=== PATIENT | female | born 1950 | race Caucasian/White ===

== ENCOUNTER 2023-09-06 10:56 | Emergency (ER) | payer SELFPAY ==
[2023-09-06] VITALS (8 sets, daily range): BP systolic 141–179; BP diastolic 70–98; PULSE 65–68; RESP 11–14; TEMP 36.6; O2SAT 89–92
--- NOTE | 2023-09-06 11:01 | CT_ITS ---
WS: [id number] CT HEAD TECHNIQUE: Noncontrast CT of the head obtained from the skullbase to the vertex. CLINICAL INFORMATION: Encephalopathy, altered mental status COMPARISON: None. DLP: 1007.[address] scans at [facility] use at least one of these dose optimization techniques: automated e xposure control; mA and/or kV adjustment per patient size (includes targeted exams where dose is matc hed to clinical indication); or iterative reconstruction. FINDINGS: No evidence of intracranial hemorrhage or mass effect. Ventricular system and basal cisterns are crawford nt. Mild small vessel changes with moderate parenchymal volume loss. No extra-axial fluid collections . No evidence of mass or mass effect. Intracranial vascular calcification. Paranasal sinuses partially visualized well aerated. Mucosal thickening RIGHT mastoid tip. IMPRESSION: 1. No evidence of intracranial hemorrhage or mass effect. 2. Mild small vessel changes with moderate parenchymal volume loss. 3. Intracranial vascular calcification. 4. No acute intracranial findings.
--- NOTE | 2023-09-06 11:01 | XR_ITS ---
WS: [id number] Examination: XR chest 1V [id number] Reason for Exam: shortness of breath Date: September 06, 2023 Comparison: None. Findings: The heart is not grossly enlarged on this AP film. The mediastinum is not widened. The aorta is calci fied with prominent atherosclerotic changes The lung markings are diffusely increased. While these may be chronic in nature without old films titi ilable comparison edema or inflammatory change cannot be excluded. There are no large effusions. Impression: Diffusely increased lung markings as above. If old films are available comparison this would be of be nefit.
--- NOTE | 2023-09-06 11:08 | ED_ITS ---
HPI - Altered Mental Status 2 General: Chief Complaint: Altered Mental Status Stated Complaint: ams Time Seen by Provider: 09/06/23 10:57 History of Present Illness: 73-year-old female with a history of dem entia who presents the emergency room by ambulance with confusion. Son states that he picked her up from her home [place] and she was like this. They have been there for 3 to 4 days and seems it she may have gotten worse. She does not seem focal but she is mostly nonverbal and does not want to follow commands. She is alert and looks around the room but does not speak. Review of Systems 2 General: Reports: ROS unobtainable due to mental status Physical Exam 2 Narrative: General: Alert, no acute distress. Skin: Warm, dry. Head: Normocephalic, atraumatic. Neck: Supple, trachea midline. Eye: Extraocular movements are intact. Ears, nose, mouth and throat: Very dry oral mucosa Cardiovascular: Regular, Normal peripheral perfusion. Respiratory: Lungs are clear to auscultation, respirations are non-labored, breath sounds are equal, Symmetrical chest wall expansion. Gastrointestinal: Soft, Nontender, Non distended, Normal bowel sounds. Musculoskeletal: Normal ROM, no deformity. Neurological: Alert, but not oriented, no focal neurological deficit observed. Psychiatric: Unable to assess, patient is nonverbal Course 2 Vital Signs: Vital signs: Vital Signs Temperature 97.8 F 09/06/23 11:07 Pulse Rate 66 09/06/23 11:20 Respiratory Rate 11 L 09/06/23 11:20 Blood Pressure 161/78 09/06/23 12:00 Pulse Oximetry 92 09/06/23 11:20 Oxygen Delivery Me thod Room Air 09/06/23 11:07 MDM - Altered Mental Status Medical Decision Making Medical decision making: Differential diagnosis including but not limited to and based on the above HPI, review of systems and physical exam: In this patient with altered mental status: Stroke. Hypoglycemia. Metabolic encephalopathy. Infections such as pneumonia, urinary tract infection, Covid-19, Influenza. Electrolyte abnormalities such as hypernatremia. Renal failure / uremia. Hepatic encephalopathy. Hypoxemia. Hypercapnic respiratory failure. Psychosis. Drug or alcohol intoxication. Medication overdose. Orders placed to evaluate differential diagnosis based on the above differential, HPI and physical exam Lab Review: Laboratory results were reviewed and interpreted by myself the emergency room physician. Lab work is fairly unremarkable. No leukocytosis. White count is 8. Hemoglobin is 12. BUN and creatinine are 13 and 0.8. Patient does have significant urinary tract infection which is likely the cause of her symptoms. Also her urine is concentrated which further is the point that she is likely dehydrated. CT head: No acute intracranial process. no intracranial hemorrhage, no evidence of infarct. no evidence of acute fracture.This was reviewed and interpreted by myself the ER physician. EKG: Time 11:20 AM rate 56. Sinus bradycardia. No ST-T changes, no ectopy, normal MI & QRS intervals, This was reviewed and interpreted by myself the ER physician at 11:26 AM. Chest x-ray: No acute process. No infiltrate. No pneumothorax. No cardiomegaly. This was reviewed and interpreted by myself the ER physician. Reexamination: Patient remained stable. No focal motor deficits. She still is a bit confused. Giving some fluids and IV antibiotics. I think she is stable to go home. At discharge she looks at me and says thank you. She seems somewhat improved. Medical Records Patient has no previous records from this facility. Lab Data 09/06/23 10:39 09/06/23 10:39 Laboratory Results WBC 8.22 10^3/uL (3.29-11.43) 09/06/23 10:39 RBC 4.71 10^6/uL (3.85-5.65) 09/06/23 10:39 Hgb 12.50 g/dL (11.27-16.99) 09/06/23 10:39 Hct 38.9 % (36-47) 09/06/23 10:39 MCV 82.6 fl (85-98) L 09/06/23 10:39 MCH 26.5 pg (27-33) L 09/06/23 10:39 MCHC 32.1 g/dL (30-55) 09/06/23 10:39 RDW 15.4 % (12.1-15.1) H 09/06/23 10:39 Plt Count 122 10^3/cmm (157-399) L 09/06/23 10:39 MPV 11.4 fL (7.4-10.4) H 09/06/23 10:39 Neut % (Auto) 62.5 % 09/06/23 10:39 Lymph % (Auto) 18.2 % 09/06/23 10:39 Bacon % (Auto) 10.6 % 09/06/23 10:39 Eos % (Auto) 7.7 % 09/06/23 10:39 Baso % (Auto) 0.6 % 09/06/23 10:39 Neut # (Auto) 5.14 10^3/uL (1.8-7.7) 09/06/23 10:39 Lymph # (Auto) 1.5 10^3/uL (0.8-4.8) 09/06/23 10:39 Bacon # (Auto) 0.9 10^3/uL (0.2-0.9) 09/06/23 10:39 Eos # (Auto) 0.6 10^3/uL (0.0-0.8) 09/06/23 10:39 Baso # (Auto) 0.1 10^3/uL (0.0-0.1) 09/06/23 10:39 Nucleated RBC % (auto) 0 % 09/06/23 10:39 Nucleated RBCs # 0.0 /100WBC 09/06/23 10:39 Sodium 143 mmol/L (136-145) 09/06/23 10:39 Potassium 3.1 mmol/L (3.5-5.1) L 09/06/23 10:39 Chloride 102 mmol/L (98-107) 09/06/23 10:39 Carbon Dioxide 28 mmol/L (22-29) 09/06/23 10:39 Anion Gap 16.1 (5-19) 09/06/23 10:39 BUN 13 mg/dL (8-23) 09/06/23 10:39 Creatinine 0.8 mg/dL (0.5-0.9) 09/06/23 10:39 GFR Calculation Not Reportable 09/06/23 10:39 Glucose 110 mg/dL (65-115) 09/06/23 10:39 Calculated Osmolality 297 mOsm/kg (285-295) H 09/06/23 10:39 Lactic Acid 1.9 mmol/L (0.5-2.2) 09/06/23 10:39 Calcium 9.4 mg/dL (8.5-10.5) 09/06/23 10:39 Total Bilirubin 1.7 mg/dL (0.15-1.2) H 09/06/23 10:39 AST 28 U/L (0-32) 09/06/23 10:39 ALT 16 U/L (0-33) 09/06/23 10:39 Alkaline Phosphatase 80 U/L (35-105) 09/06/23 10:39 C-Reactive Protein 20.7 mg/L (0.0-4.9) H 09/06/23 10:39 Total Protein 7.0 g/dL (6.6-8.7) 09/06/23 10:39 Albumin 3.7 g/dL (3.5-5.2) 09/06/23 10:39 Globulin 3.3 g/dL (1.3-4.6) 09/06/23 10:39 Urine Color Yellow (Yellow) 09/06/23 12:00 Urine Appearance Cloudy (CLEAR) A 09/06/23 12:00 Urine pH 6 (5-7) 09/06/23 12:00 Ur Specific [place] 1.025 (1.005-1.030) 09/06/23 12:00 Urine Protein 1+ (Negative) H 09/06/23 12:00 Urine Glucose (UA) Norm (Normal) 09/06/23 12:00 Urine Ketones 1+ (Negative) H 09/06/23 12:00 Urine Blood 2+ (Negative) H 09/06/23 12:00 Urine Nitrate Positive (Negative) H 09/06/23 12:00 Urine Bilirubin 1+ (Negative) H 09/06/23 12:00 Urine Urobilinogen 4 mg/dL (Negative) H 09/06/23 12:00 Ur Leukocyte Esterase 2+ (Negative) H 09/06/23 12:00 Urine RBC 5-10 /hpf (0-2) H 09/06/23 12:00 Urine WBC 40-55 /hpf (0-5) H 09/06/23 12:00 Ur Squamous Epith Cells 0-4 /hpf (0-5) H 09/06/23 12:00 Ur Transition Epith Cell 15-25 /hpf 09/06/23 12:00 Amorphous Sediment Not Reportable 09/06/23 12:00 Urine Bacteria 1+ /hpf (NONE) H 09/06/23 12:00 Influenza Type A Ag negative (Negative) 09/06/23 11:19 Influenza Type B Ag negative (Negative) 09/06/23 11:19 All radiology interpretation(s) finalized by discharge Other Data Assessment and plan: Urinary tract infection Dehydration - IV Rocephin and 1 L normal saline bolus were given in the emergency room. - Discharged home - Discussed findings and plan with patient. Answered any questions. - All laboratory values were reviewed and interpreted personally by myself, the ER physician - All imaging was reviewed and interpreted personally by myself, the ER physician. - Evaluation and treatment of this problem were appropriate in the emergency setting Discharge Plan Discharge Patient Disposition: Home Clinical Impression: Urinary tract infection, Delirium due to general medical condition, Dementia, Dehydration Condition: Stable Prescriptions: New cefdinir 300 mg capsule 300 mg PO BID 7 Days Qty: 14 0RF No Action magnesium 500 mg Tablet 500 mg PO DAILY trazodone 50 mg Tablet 50 mg PO BEDTIME aspirin 325 mg Tablet 325 mg PO DAILY isosorbide mononitrate 30 mg Tablet Extended Release 24 Hr 15 mg PO QAM Prilosec 40 mg Capsule,Delayed Release(Dr/Ec) 40 mg PO QAM lisinopril 10 mg Tablet 10 mg PO BID ibuprofen 200 mg Tablet 200 - 800 mg PO Q6H PRN (Reason: Pain) mirtazapine 15 mg Tablet 15 mg PO BEDTIME albuterol sulfate 90 mcg/actuation Hfa Aerosol Inhaler 2 puff INHALATION QID PRN (Reason: Shortness Of Breath) Zoloft 50 mg Tablet 50 mg PO QAM potassium gluconate 595 mg (99 mg) Tablet 595 mg PO DAILY Vitamin D3 125 mcg (5,000 unit) Tablet 10,000 unit PO DAILY Discharge Orders: Discharge ED (Routine); Ordered 09/06/23 Ordered By: Amara Sweet Discharge Diet: Usual diet Discharge Activity: Increase activity as tolerated Patient Instructions: Dehydration (ED), Dementia (ED), Urinary Tract Infection in Older Adults (ED) Activity Restrictions/Additional Instructions: Complete all antibiotics as instructed. You have been screened and evaluated and felt safe for discharge. Health conditions do change or evolve sometimes and as such it is important that you follow up with your Primary Doctor to be re checked, 3-5 days is a general good time frame for follow up. 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
[2023-09-06 11:09] LABS: Basophils # 0.1 10^3/uL (0.0-0.1); Basophils % 0.6 %; Eosinophils # 0.6 10^3/uL (0.0-0.8); Eosinophils % 7.7 %; Hematocrit 38.9 % (36-47); Lymphocytes # 1.5 10^3/uL (0.8-4.8); Lymphocytes % 18.2 %; Mean Corpuscular HGB Conc 32.1 g/dL (30-55); Mean Corpuscular Hemoglobin 26.5 pg (27-33); Mean Corpuscular Volume 82.6 fl (85-98); Mean Platelet Volume 11.4 fL (7.4-10.4); Monocytes # 0.9 10^3/uL (0.2-0.9); Monocytes % 10.6 %; Neutrophils # 5.14 10^3/uL (1.8-7.7); Neutrophils % 62.5 %; Nucleated Red Blood Cells % 0 %; Platelet Count 122 10^3/cmm (157-399); Red Blood Count 4.71 10^6/uL (3.85-5.65); Red Cell Distribution Width 15.4 % (12.1-15.1); White Blood Count 8.22 10^3/uL (3.29-11.43)
--- NOTE | 2023-09-06 11:24 | PC.PHAR ---
pt unable to verify medications due to ams-pts son brought in med bottles that are entered-pts son states the pt hasnt taken since last saturday-pts son states maybe not even taken before then-notes are made in the pharmacy comments with dates that was on bottles-pt had a doxycycline hyclate 100mg bid x7 days bottle shows filled 08/06/23 pts son states finished states it was for the pts cellulitis-
[2023-09-06 11:25] LABS: Lactic Sepsis W/Reflex 1.9 mmol/L (0.5-2.2)
[2023-09-06 11:30] LABS: Alanine Aminotransferase 16 U/L (0-33); Albumin Level 3.7 g/dL (3.5-5.2); Alkaline Phosphatase 80 U/L (35-105); Anion Gap 16.1 (5-19); Aspartate Amino Transferase 28 U/L (0-32); Blood Urea Nitrogen 13 mg/dL (8-23); C Reactive Protein 20.7 mg/L (0.0-4.9); Calcium 9.4 mg/dL (8.5-10.5); Carbon Dioxide 28 mmol/L (22-29); Chloride 102 mmol/L (98-107); Globulin 3.3 g/dL (1.3-4.6); Glucose 110 mg/dL (65-115); Osmolality Calculated 297 mOsm/kg (285-295); Potassium 3.1 mmol/L (3.5-5.1); Sodium 143 mmol/L (136-145); Total Bilirubin 1.7 mg/dL (0.15-1.2)
[2023-09-06 11:40] LABS: Influenza A by IFA negative (Negative); Influenza B by IFA negative (Negative)
[2023-09-06 13:06] LABS: Bilirubin Urine 1+ (Negative); Blood Urine 2+ (Negative); Glucose Urine UA Norm (Normal); Ketones Urine 1+ (Negative); Leukocyte Esterase Urine 2+ (Negative); Nitrate Urine Positive (Negative); Protein Urine 1+ (Negative); Specific Gravity, Urine 1.025 (1.005-1.030); Urine Appearance Cloudy (CLEAR); Urine Color Yellow (Yellow); Urobilinogen Urine 4 mg/dL (Negative); pH Urine 6 (5-7)
[2023-09-06 13:09] LABS: Add Urine Culture? Yes; Bacteria Urine 1+ /hpf; Squamous Epithelial Cell Urine 0-4 /hpf (0-5); Transitional Epi Cells Urine 15-25 /hpf; WBC Urine 40-55 /hpf (0-5)
[2023-09-06] MEDS: sodium chloride 0.9% 1,000 ML 999 ML IV (13:27)
[2023-09-06] MEDS: cefTRIAXone 1,000 MG in sodium chloride 0.9% (plus) 50 ML 100 MG IV (13:27)
== END 2023-09-06 14:10 | disposition home or self-care (01) ==
PROVIDERS: Emergency Provider Emergency Medicine
DX: F03.90 Unspecified dementia, unspecified severity, without behavioral disturbance, psychotic disturbance, mood disturbance, and anxiety (principal); F05 Delirium due to known physiological condition; E86.0 Dehydration; N39.0 Urinary tract infection, site not specified; Z79.82 Long term (current) use of aspirin
CPT/HCPCS: 70450; 71045; 80053; 81001; 83605; 85025; 86140; 87040; 87077; 87086; 87186; 87804; 99284; J0696; J7030

== ENCOUNTER 2023-10-16 13:33 | Emergency (ER) | payer MEDICARE, MEDICAID, SELFPAY ==
[2023-10-16 13:37] VITALS: BP 160/89; PULSE 74; RESP 18; TEMP 36.9; O2SAT 96
--- NOTE | 2023-10-16 14:00 | XR_ITS ---
WS: [id number] Portable AP upright chest, 10/16/2023 Clinical Data: dyspnea/cough Comparison: Portable chest, 09/06/2023 Findings: No nodules, masses or effusions are seen. The heart is slightly enlarged. The pulmonary vas cularity is not increased. No pneumonia or pneumothorax is seen. The aortic arch and descending thora cic aorta show calcification and tortuosity. There are small metal tubes overlying the right and left axilla which may be on the patient's clothing. XR/XR chest 1V portable [id number] Impression: Atherosclerosis.
--- NOTE | 2023-10-16 14:01 | ED_ITS ---
HPI - Female Genitourinary 2 General: Chief complaint: Urogenital-Female Stated complaint: frequent urination Time Seen by Provider: 10/16/23 13:59 Source: patient Mode of arrival: ambulatory History of Present Illness: 73-year-old female presents to the emerg ency room with complaint of UTI. In early September she was seen for a UTI and culture grew out Proteus and Enterococcus faecalis both susceptible to quinolones. She feels like the antibiotic she was treated with did not completely resolve or it has recurred. Son is with her as her main caregiver says she has seemed a little bit off lately not feeling as well at times is even hallucinating felt hot to the touch subjectively reporting a fever. She denies back pain dysuria urgency or frequency or vomiting. MD elicited complaint: dysuria Onset (ago): day(s) Quality of pain: cramping Relieving factors: none Associated symptoms: Reports fevers/chills; Deny abdominal pain, short of breath, headache(s), nausea, rash, seizures, syncope or weakness Treatment prior to arrival: none Review of Systems 2 Const: Denies: fever(s) or chills Card: Denies: chest pain or syncope Resp: Denies: dyspnea GI: Denies: abdominal pain or nausea : Denies: dysuria, urinary frequency or urinary urgency Musc: Denies: neck pain or back pain Skin/Breast: Denies: rash Neuro: Denies: headache(s) Physical Exam 2 Const: COMMON NORMALS: no acute distress GENERAL APPEARANCE: cooperative and comfortable ORIENTATION/CONSCIOUSNESS: Yes awake, Yes oriented to person, Yes oriented to place and Yes oriented to time HENMT: COMMON NORMALS: normocephalic, atraumatic and hearing grossly normal bilaterally HEAD & SCALP: normocephalic and atraumatic Resp: COMMON NORMALS: normal respiratory effort, No retractions, No use of accessory muscles and clear to auscultation bilaterally AUSCULTATION: clear to auscultation bilaterally Cardio: COMMON NORMALS: regular rate, regular rhythm and No murmurs present (Cardio) RATE: regular rate RHYTHM: regular rhythm GI: COMMON NORMALS: Soft to palpation and No hepatosplenomegaly present A USCULTATION: Yes normoactive bowel sounds PALPATION: Yes Soft to palpation, No Tenderness to palpation present (GI), No Guarding due to palpation present (GI) and Yes No hepatosplenomegaly present Extremity: COMMON NORMALS: normal to inspection, capillary refill normal, no clubbing, cyanosis or edema, no calf tenderness and no pedal edema Neuro: SENSORIUM/ORIENTATION: Yes oriented to person, Yes oriented to place and Yes oriented to time Skin: COMMON NORMALS: no rashes or lesions noted GENERAL SKIN EXAM: no rashes or lesions noted Course 2 Vital Signs: Vital signs: Vital Signs Temperature 98.4 F 10/16/23 13:37 Pulse Rate 73 10/16/23 17:03 Respiratory Rate 18 10/16/23 13:37 Blood Pressure 198/100 10/16/23 17:03 Pulse Oximetry 96 10/16/23 17:03 Oxygen Delivery Me thod Room Air 10/16/23 13:37 MDM - Female Medical Decision Making Lab work shows UTI. Secondary findings of thrombocytopenia which is mild as well as hypokalemia. Patient given potassium supplement also was given fluids discharged home on oral antibiotics follow-up with primary care to recheck potassium and platelets within the next week recheck if not improving. Patient does have some baseline dementia has been exacerbated with suspect by the UTI. She is actually doing fairly well at this time. Recheck if has any worsening or changes symptoms. Medical Records I reviewed the patient's medical records. Lab Data I reviewed the patient's lab results. 10/16/23 14:32 10/16/23 14:32 Radiology Impressions Chest X-Ray 10/16/23 14:00 Impression: Atherosclerosis. Laboratory Results WBC 5.37 10^3/uL (3.29-11.43) 10/16/23 14:32 RBC 4.50 10^6/uL (3.85-5.65) 10/16/23 14:32 Hgb 12.00 g/dL (11.27-16.99) 10/16/23 14:32 Hct 36.7 % (36-47) 10/16/23 14:32 MCV 81.6 fl (85-98) L 10/16/23 14:32 MCH 26.7 pg (27-33) L 10/16/23 14:32 MCHC 32.7 g/dL (30-55) 10/16/23 14:32 RDW 17.3 % (12.1-15.1) H 10/16/23 14:32 Plt Count 90 10^3/cmm (157-399) L 10/16/23 14:32 MPV 10.7 fL (7.4-10.4) H 10/16/23 14:32 Neut % (Auto) 57.3 % 10/16/23 14:32 Lymph % (Auto) 26.3 % 10/16/23 14:32 [place]ukes % (Auto) 8.9 % 10/16/23 14:32 Eos % (Auto) 6.0 % 10/16/23 14:32 Baso % (Auto) 0.9 % 10/16/23 14:32 Neut # (Auto) 3.08 10^3/uL (1.8-7.7) 10/16/23 14:32 Lymph # (Auto) 1.4 10^3/uL (0.8-4.8) 10/16/23 14:32 [place]ukes # (Auto) 0.5 10^3/uL (0.2-0.9) 10/16/23 14:32 Eos # (Auto) 0.3 10^3/uL (0.0-0.8) 10/16/23 14:32 Baso # (Auto) 0.1 10^3/uL (0.0-0.1) 10/16/23 14:32 Nucleated RBC % (auto) 0 % 10/16/23 14:32 Nucleated RBCs # 0.0 /100WBC 10/16/23 14:32 Sodium 142 mmol/L (136-145) 10/16/23 14:32 Potassium 2.9 mmol/L (3.5-5.1) L 10/16/23 14:32 Chloride 104 mmol/L (98-107) 10/16/23 14:32 Carbon Dioxide 29 mmol/L (22-29) 10/16/23 14:32 Anion Gap 11.9 (5-19) 10/16/23 14:32 BUN 7 mg/dL (8-23) L 10/16/23 14:32 Creatinine 0.6 mg/dL (0.5-0.9) 10/16/23 14:32 GFR Calculation Not Reportable 10/16/23 14:32 Glucose 95 mg/dL (65-115) 10/16/23 14:32 Calculated Osmolality 292 mOsm/kg (285-295) 10/16/23 14:32 Calcium 8.9 mg/dL (8.5-10.5) 10/16/23 14:32 Total Bilirubin 1.3 mg/dL (0.15-1.2) H 10/16/23 14:32 AST 24 U/L (0-32) 10/16/23 14:32 ALT 10 U/L (0-33) 10/16/23 14:32 Alkaline Phosphatase 87 U/L (35-105) 10/16/23 14:32 Total Protein 6.0 g/dL (6.6-8.7) L 10/16/23 14:32 Albumin 3.2 g/dL (3.5-5.2) L 10/16/23 14:32 Globulin 2.8 g/dL (1.3-4.6) 10/16/23 14:32 Urine Color Yellow (Yellow) 10/16/23 14:17 Urine Appearance Hazy (CLEAR) A 10/16/23 14:17 Urine pH 7 (5-7) 10/16/23 14:17 Ur Specific [place] 1.010 (1.005-1.030) 10/16/23 14:17 Urine Protein Neg (Negative) 10/16/23 14:17 Urine Glucose (UA) Norm (Normal) 10/16/23 14:17 Urine Ketones Negative (Negative) 10/16/23 14:17 Urine Blood Neg (Negative) 10/16/23 14:17 Urine Nitrate Negative (Negative) 10/16/23 14:17 Urine Bilirubin 1+ (Negative) H 10/16/23 14:17 Urine Urobilinogen 4 mg/dL (Negative) H 10/16/23 14:17 Ur Leukocyte Esterase 1+ (Negative) H 10/16/23 14:17 Urine RBC None /hpf (0-2) 10/16/23 14:17 Urine WBC 5-10 /hpf (0-5) H 10/16/23 14:17 Ur Squamous Epith Cells 5-10 /hpf (0-5) H 10/16/23 14:17 Amorphous Sediment Not Reportable 10/16/23 14:17 Urine Bacteria 1+ /hpf (NONE) H 10/16/23 14:17 All radiology interpretation(s) finalized by discharge Discharge Plan Discharge Patient Disposition: Home Clinical Impression: Urinary tract infection, Hypokalemia, Thrombocytopenia Condition: Stable Prescriptions: New cefdinir 300 mg capsule 300 mg PO BID Qty: 14 0RF Changed potassium gluconate 595 mg (99 mg) Tablet 595 mg PO BID Qty: 60 0RF No Action trazodone 50 mg Tablet 50 mg PO BEDTIME aspirin 325 mg Tablet 325 mg PO DAILY isosorbide mononitrate 30 mg Tablet Extended Release 24 Hr 15 mg PO QAM omeprazole [Prilosec] 40 mg Capsule,Delayed Release(Dr/Ec) 40 mg PO QAM lisinopril 10 mg Tablet 10 mg PO BID ibuprofen 200 mg Tablet 200 - 800 mg PO Q6H PRN (Reason: Pain) mirtazapine 15 mg Tablet 15 mg PO BEDTIME albuterol sulfate 90 mcg/actuation Hfa Aerosol Inhaler 2 puff INHALATION QID PRN (Reason: Shortness Of Breath) sertraline [Zoloft] 50 mg Tablet 50 mg PO QAM cholecalciferol (vitamin D3) [Vitamin D3] 125 mcg (5,000 unit) Tablet 10,000 unit PO DAILY Discharge Orders: Discharge ED (Routine); Ordered 10/16/23 Ordered By: Benigno Bolden Discharge Diet: Usual diet Discharge Activity: Increase activity as tolerated Patient Instructions: Opioid Safety, Pain Management Activity Restrictions/Additional Instructions: Thank you for choosing [facility] for your healthcare needs today. Please realize this is an emergency room and that we are providing you with a medical screening exam and this may not be complete and all inclusive of all the testing and or work up that you may need to determine your ailment or severity of your illness. It is very important that you follow up as instructed or that you return to the Emergency Department should you have concerns or if your condition changes or worsens in any way. You were seen today with complaints of possible bladder infection as well as slight confusion. Recommend oral antibiotics twice daily for 7 days. You also had low potassium recommend you increase your potassium to 1 dose twice a day. Finally platelets were low. 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
[2023-10-16 14:33] VITALS: PULSE 71; O2SAT 95
[2023-10-16 14:43] LABS: Basophils # 0.1 10^3/uL (0.0-0.1); Basophils % 0.9 %; Eosinophils # 0.3 10^3/uL (0.0-0.8); Hematocrit 36.7 % (36-47); Lymphocytes # 1.4 10^3/uL (0.8-4.8); Lymphocytes % 26.3 %; Mean Corpuscular HGB Conc 32.7 g/dL (30-55); Mean Corpuscular Hemoglobin 26.7 pg (27-33); Mean Corpuscular Volume 81.6 fl (85-98); Mean Platelet Volume 10.7 fL (7.4-10.4); Monocytes # 0.5 10^3/uL (0.2-0.9); Monocytes % 8.9 %; Neutrophils # 3.08 10^3/uL (1.8-7.7); Neutrophils % 57.3 %; Nucleated Red Blood Cells % 0 %; Platelet Count 90 10^3/cmm (157-399); Red Cell Distribution Width 17.3 % (12.1-15.1); White Blood Count 5.37 10^3/uL (3.29-11.43)
[2023-10-16 14:45] LABS: Add Urine Microscopic? YES; Bilirubin Urine 1+ (Negative); Blood Urine Neg (Negative); Glucose Urine UA Norm (Normal); Ketones Urine Negative (Negative); Leukocyte Esterase Urine 1+ (Negative); Nitrate Urine Negative (Negative); Protein Urine Neg (Negative); Urine Appearance Hazy (CLEAR); Urine Color Yellow (Yellow); Urobilinogen Urine 4 mg/dL (Negative); pH Urine 7 (5-7)
[2023-10-16 14:46] LABS: Bacteria Urine 1+ /hpf
[2023-10-16 14:47] LABS: Add Urine Culture? No
--- NOTE | 2023-10-16 14:57 | PC.PHAR ---
Addendum entered by Litzy Lyons 10/16/23 15:00: I DID NOT REMOVE ALL PTS' MEDICATIONS FROM HER CHART, SO MEDICATIONS PREVIOUSLY TAKEN, CAN BE VIEWED. Original Note: SON STATES PT ONLY TAKES IBUPROFEN 200MG AND ALL OTHER MEDICATIONS HAVE BEEN STOPPED.
[2023-10-16 15:01] LABS: Alanine Aminotransferase 10 U/L (0-33); Albumin Level 3.2 g/dL (3.5-5.2); Alkaline Phosphatase 87 U/L (35-105); Anion Gap 11.9 (5-19); Aspartate Amino Transferase 24 U/L (0-32); Blood Urea Nitrogen 7 mg/dL (8-23); Calcium 8.9 mg/dL (8.5-10.5); Carbon Dioxide 29 mmol/L (22-29); Chloride 104 mmol/L (98-107); Globulin 2.8 g/dL (1.3-4.6); Glucose 95 mg/dL (65-115); Osmolality Calculated 292 mOsm/kg (285-295); Sodium 142 mmol/L (136-145); Total Bilirubin 1.3 mg/dL (0.15-1.2)
[2023-10-16 15:03] LABS: Potassium 2.9 mmol/L (3.5-5.1)
[2023-10-16] MEDS: sodium chloride 0.9% 1,000 ML 999 ML IV (15:04)
[2023-10-16 15:05] VITALS: BP 186/87; PULSE 72; O2SAT 96
[2023-10-16] MEDS: potassium chloride oral liq 20 mEq/15 mL UDC 40 MEQ PO (15:23)
[2023-10-16 15:44] VITALS: PULSE 73; O2SAT 96
[2023-10-16 17:03] VITALS: BP 198/100; PULSE 73; O2SAT 96
== END 2023-10-16 17:06 | disposition home or self-care (01) ==
PROVIDERS: Emergency Provider Family Medicine
DX: N39.0 Urinary tract infection, site not specified (principal); E87.6 Hypokalemia; D69.6 Thrombocytopenia, unspecified; Z79.82 Long term (current) use of aspirin
CPT/HCPCS: 36415; 71045; 80053; 81001; 85025; 99284; J7030

== ENCOUNTER 2023-10-25 19:28 | Observation (INO) | payer MEDICARE, MEDICAID, SELFPAY ==
[2023-10-25 19:29] VITALS: BP 191/115; PULSE 81; RESP 16; TEMP 36.5; O2SAT 92
[2023-10-25 20:26] LABS: Basophils # 0.1 10^3/uL (0.0-0.1); Eosinophils # 0.3 10^3/uL (0.0-0.8); Eosinophils % 2.9 %; Hematocrit 45.4 % (36-47); Lymphocytes # 1.8 10^3/uL (0.8-4.8); Lymphocytes % 20.7 %; Mean Corpuscular HGB Conc 32.8 g/dL (30-55); Mean Corpuscular Hemoglobin 26.7 pg (27-33); Mean Corpuscular Volume 81.4 fl (85-98); Mean Platelet Volume 10.5 fL (7.4-10.4); Monocytes # 0.7 10^3/uL (0.2-0.9); Monocytes % 8.1 %; Neutrophils # 5.91 10^3/uL (1.8-7.7); Nucleated Red Blood Cells % 0 %; Platelet Count 142 10^3/cmm (157-399); Red Blood Count 5.58 10^6/uL (3.85-5.65); White Blood Count 8.84 10^3/uL (3.29-11.43)
[2023-10-25 20:43] LABS: Blood Urea Nitrogen 8 mg/dL (8-23); Calcium 10.9 mg/dL (8.5-10.5); Carbon Dioxide 32 mmol/L (22-29); Chloride 98 mmol/L (98-107); Glucose 117 mg/dL (65-115); Osmolality Calculated 287 mOsm/kg (285-295); Sodium 139 mmol/L (136-145)
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
--- NOTE | 2023-10-25 21:39 | ECG_ITS ---
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 Measurements Intervals [place] Rate: 82 P: 0 LA: 0 QRS: 58 QRSD: 84 T: 86 QT: 392 QTc: 459 Interpretive Statements Sinus rhythm with a frequent supraventricular ectopics MODERATE ST DEPRESSION [0.05+ mV ST DEPRESSION] No previous ECG available for comparison Electronically Signed On 10-26-2023 20:19:32 CDT by Laura Mcgovern M.D. [id number]
--- NOTE | 2023-10-25 21:39 | XRR_ITS ---
PROCEDURE INFORMATION: Exam: XR Chest Exam date and time: 10/25/2023 9:46 PM Age: 73 years old Clinical indication: Shortness of breath; Additional info: Altered mental status TECHNIQUE: Imaging protocol: Radiologic exam of the chest. Views: 1 view. COMPARISON: CR XR chest 1V portable [id number] 10/16/2023 2:24 PM FINDINGS: Lungs: Calcified granulomata are stable in the left lung base. No pulmonary consolidation. Stable moderate interstitial prominence. Pleural spaces: No pleural effusion. Heart/Mediastinum: Heart size is within normal limits. Vasculature: Atherosclerotic calcifications of the aorta are noted. Bones/joints: No acute osseous abnormalities are seen. Soft tissues: Curvilinear opacity overlying the right upper lung zone is most consistent with a skin fold. Lung markings are seen peripheral to this line which extends into the soft tissues. XR/XR chest 1V portable [id number] IMPRESSION: No acute cardiopulmonary disease.
[2023-10-25 22:21] LABS: Alanine Aminotransferase 9 U/L (0-33); Alkaline Phosphatase 108 U/L (35-105); Aspartate Amino Transferase 23 U/L (0-32); Globulin 3.4 g/dL (1.3-4.6); Magnesium 1.3 mg/dL (1.7-2.3); Total Bilirubin 2.1 mg/dL (0.15-1.2); Total Protein 7.4 g/dL (6.6-8.7)
[2023-10-25 22:22] LABS: Acetaminophen < 5.0 ug/mL (10-30); Alcohol Level < 10 mg/dL (0-10); Salicylate < 0.3 mg/dL (3-10)
[2023-10-25 22:49] LABS: Influenza A by IFA negative (Negative); Influenza B by IFA negative (Negative)
[2023-10-25 22:50] LABS: SARS Covid-2 Antigen negative (Negative)
[2023-10-25 22:56] LABS: Amphetamines Screen Urine Negative (Negative); Barbiturates Screen Urine Negative (Negative); Benzodiazepines Screen Urine Negative (Negative); Cocaine Screen Urine Negative (Negative); Opiate Screen Urine Negative (Negative); PCP Screen Urine Negative (Negative); THC Screen Urine Positive (Negative)
[2023-10-25 23:03] LABS: Add Urine Microscopic? YES; Bilirubin Urine 1+ (Negative); Blood Urine Neg (Negative); Glucose Urine UA Norm (Normal); Ketones Urine Negative (Negative); Leukocyte Esterase Urine 2+ (Negative); Mucus Urine TRACE /hpf; Nitrate Urine Negative (Negative); Protein Urine Trace (Negative); RBC Urine 0-4 /hpf (0-2); Urine Appearance Cloudy (CLEAR); Urine Color Dark Yellow (Yellow); Urobilinogen Urine Neg (Negative); pH Urine 6 (5-7)
[2023-10-25 23:04] LABS: Amorphous Sediment Urine TRACE /hpf; Bacteria Urine 1+ /hpf; Calcium Oxalate Crystals Urine 0-4 /hpf; Fine Granular Casts Urine 0-4 /lpf
--- NOTE | 2023-10-25 23:19 | CTR_ITS ---
PROCEDURE INFORMATION: Exam: CT Chest With Contrast; Diagnostic Exam date and time: 10/25/2023 11:45 PM Age: 73 years old Clinical indication: Abdominal pain; Localized; Shortness of breath; Other: N/a; Patient HX: Patient is SOB and C/O lower abd pain. Patient has been on multiple treatments for UTI without resolution. ; Additional info: Altered mental status, recurrent UTI, failed tx x 2 TECHNIQUE: Imaging protocol: Diagnostic computed tomography of the chest with contrast. Radiation optimization: All CT scans at this facility use at least one of these dose optimization techniques: automated exposure control; mA and/or kV adjustment per patient size (includes targeted exams where dose is matched to clinical indication); or iterative reconstruction. Contrast material: OMNI 350; Contrast volume: 100 ml; Contrast route: INTRAVENOUS (IV); COMPARISON: CR (CHEST, ) 10/25/2023 9:46 PM RADIATION DOSE METRICS: Total DLP (mGy-cm): 403.08 FINDINGS: Lungs: 8 mm noncalcified nodule in the superior segment of the left lower lobe. No consolidation. Pleural spaces: Unremarkable. No pneumothorax. No pleural effusion. Heart: [id number] cardiomegaly. No pericardial effusion. Possible left ventricular hypertrophy. Coronary arteries: Moderate coronary artery calcification. Lymph nodes: There are no enlarged mediastinal, axillary, or hilar lymph nodes identified. Calcified mediastinal lymph nodes are present consistent with old granulomatous disease. Scattered areas of subpleural reticulation likely representing peripheral areas of scarring and/or atelectasis. Clustered micro nodules in the bilateral apices likely postinflammatory. Vasculature: Atherosclerotic calcifications of the aorta are present. No aneurysm is identified. Bones/joints: No acute osseous abnormalities are seen. Mild S shaped scoliosis. Soft tissues: The soft tissues are within normal limits. Other findings: Calcified granulomata are noted. COMMENTS: For both low risk and high risk patients, consider CT Chest at 3 months, PET/CT, or biopsy. (Reference: Stefania) REFERENCES: maria alejandra Vance al. Guidelines for Management of Incidental Pulmonary Nodules Detected on CT Images: From the Fleischner Society 2017. Radiology. 2017;284(1):228-243. PROCEDURE INFORMATION: Exam: CT Abdomen And Pelvis With Contrast Exam date and time: 10/25/2023 11:45 PM Age: 73 years old Clinical indication: Abdominal pain; Localized; Shortness of breath; Other: N/a; Patient HX: Patient is SOB and C/O lower abd pain. Patient has been on multiple treatments for UTI without resolution. ; Additional info: Altered mental status, recurrent UTI, failed tx x 2 TECHNIQUE: Imaging protocol: Computed tomography of the abdomen and pelvis with contrast. Radiation optimization: All CT scans at this facility use at least one of these dose optimization techniques: automated exposure control; mA and/or kV adjustment per patient size (includes targeted exams where dose is matched to clinical indication); or iterative reconstruction. Contrast material: OMNI 350; Contrast volume: 100 ml; Contrast route: INTRAVENOUS (IV); COMPARISON: CR (CHEST, ) 10/25/2023 9:46 PM RADIATION DOSE METRICS: Total DLP (mGy-cm): 403.08 FINDINGS: Liver: Nodularity of the left lobe of the liver. No hepatic masses identified. Gallbladder and bile ducts: Mild prominence of the common bile duct measuring up to 8 mm, likely physiologic. No intrahepatic ductal dilatation. Tiny gallstones. No gallbladder wall thickening or pericholecystic inflammatory change. Pancreas: The pancreas is atrophic without obvious abnormality. Spleen: Mild splenomegaly. The spleen measures approximately 13.2 cm in length. Adrenal glands: The adrenal glands are normal. Kidneys and ureters: There is normal enhancement of the kidneys. No renal calcifications are identified. There is no hydronephrosis. Stomach and bowel: Mild colonic diverticulosis without diverticulitis. There is no large or small bowel obstruction. There is no evidence of bowel wall thickening. Appendix: A normal appendix is not identified. There is no secondary evidence of acute appendicitis. Intraperitoneal space: No inflammatory changes are identified. There is no free fluid or fluid collection seen. There is no pneumoperitoneum. Vasculature: Atherosclerotic calcifications of the aorta are present. No aneurysm is identified. Markedly tortuous vessel in the upper abdomen is of uncertain origin and may represent a splenorenal shunt. Lymph nodes: There are no enlarged retroperitoneal or mesenteric lymph nodes. Urinary bladder: The bladder is unremarkable. Reproductive: The uterus is present. Bones/joints: No acute osseous abnormalities are seen. 1-2 mm of anterolisthesis of L4 on L5. Soft tissues: The soft tissues are within normal limits. CT/CT chest abdpel w/*[id number] IMPRESSION: 1. No acute cardiopulmonary disease. 2. 8 mm noncalcified nodule in the superior segment of the left lower lobe. Recommend follow-up CT in 3 months. PET-CT or biopsy could also be considered. IMPRESSION: 1. No acute intra-abdominal or pelvic process. 2. Nodularity of the liver surface. Correlate with possible cirrhosis. Mild splenomegaly may indicate portal hypertension. Questionable splenorenal shunt.
[2023-10-25] MEDS: iohexol 350 mg/mL 500 mL Btl (per mL) IV (23:47)
[2023-10-26] VITALS (12 sets, daily range): BP systolic 118–199; BP diastolic 64–127; PULSE 56–102; RESP 14–15; TEMP 36.4–37; O2SAT 92–97
[2023-10-26 00:06] LABS: Free T4 Free Thyroxine 1.44 ng/dL (0.82-1.77); T3 Free 3.8 PG/ML (2.0-4.4)
[2023-10-26] MEDS: haloperidol inj 5 mg/mL INJ 1 mL IM ×2 (00:41→11:38)
[2023-10-26] MEDS: LORazepam 2 mg/mL INJ 10 mL MDV 1 MG IVP (01:39)
[2023-10-26] MEDS: hyDRALAzine 20 mg/mL INJ 1 mL IVP (05:57)
[2023-10-26] MEDS: potassium chloride oral liq 20 mEq/15 mL UDC 40 MEQ PO (06:24)
[2023-10-26] MEDS: LORazepam 2 mg/mL INJ 10 mL MDV 0.5 MG IM (06:38)
--- NOTE | 2023-10-26 07:03 | PC.PHAR ---
SON STATES PT ONLY USES IBUPROFEN 200MG NEEDED. NO OTHER MEDICATIONS TAKEN ANYMORE.
[2023-10-26] MEDS: magnesium sulfate premix 2 GM/50 ML PIGGYBACK IV (07:27)
[2023-10-26 08:40] LABS: Potassium 2.9 mmol/L (3.5-5.1)
[2023-10-26] MEDS: potassium chloride oral liq 20 mEq/15 mL UDC 60 MEQ PO (09:11)
[2023-10-26 10:45] LABS: Potassium 4.5 mmol/L (3.5-5.1)
--- NOTE | 2023-10-26 11:44 | CTR_ITS ---
PROCEDURE INFORMATION: Exam: CT Head Without Contrast Exam date and time: 10/26/2023 12:13 PM Age: 73 years old Clinical indication: Altered mental status/memory loss; Confusion or disorientation; Additional info: AMS TECHNIQUE: Imaging protocol: Computed tomography of the head without contrast. Radiation optimization: All CT scans at this facility use at least one of these dose optimization techniques: automated exposure control; mA and/or kV adjustment per patient size (includes targeted exams where dose is matched to clinical indication); or iterative reconstruction. COMPARISON: CT head wo con* [id number] 09/06/2023 11:33 AM RADIATION DOSE METRICS: Total DLP (mGy-cm): 1046.83 FINDINGS: Brain: There are bilateral periventricular white matter and centrum semiovale hypodensities consistent with chronic ischemic small vessel disease. No recent infarct, mass effect or intracranial bleed. Cerebral ventricles: No ventriculomegaly. Pituitary gland and sella: Partially empty sella. Paranasal sinuses: There are frothy secretions in the right maxillary sinus. Mastoid air cells: Visualized mastoid air cells are well aerated. Orbital cavities: Post bilateral cataract surgery. Bones: Unremarkable. No acute fracture. Soft tissues: Unremarkable. CT/CT head wo con* [id number] IMPRESSION: No large territorial infarct or intracranial bleed.
--- NOTE | 2023-10-26 11:45 | P.HP_ITS ---
Providers/Chief Complaint 2 Chief Complaint: Confusion History of Present Illness Sandra Gamboa is a 73 year old female with a past medical history significant for dementia, GERD, and depression who presents to the emergency department with worsening mentation. Upon assessment, patient was found to be confused. She is not oriented to the situation. History had to be obtained from prior providers and chart review. Patient reportedly has a history of dementia. Her internet sales manager was her son. Son was reportedly present prior to my evaluation but has since left. Per report, he is unable to care for her any longer due to her advanced dementia. Patient's only complaint is constipation. She denies fevers, chills, nausea or emesis. Denies other alleviating or aggravating factors. Patient presents for observation admission as there is currently no safe discharge plan. Attempted to obtain a complete medical history including past medical history, past surgical history, surgical history, and family history; however unable due to patient's advanced dementia she is not able to provide this information. Review of Systems 2 Narrative: A complete review of systems was obtained and is negative except as stated in HPI. Medications/Allergies Home Medications Medication Instructions Recorded Confirmed Last Taken Type albuterol sulfate 90 mcg/actuation 2 puff inhalation QID PRN 09/06/23 10/26/23 Unknown History aerosol inhaler Shortness Of Breath aspirin 325 mg tablet 325 mg PO DAILY 09/06/23 10/26/23 Unknown History cholecalciferol (vitamin D3) 125 10,000 unit PO DAILY 09/06/23 10/26/23 Unknown History mcg (5,000 unit) tablet (Vitamin D3) ibuprofen 200 mg tablet 200 - 800 mg PO Q6H PRN Pain 09/06/23 10/26/23 Unknown History isosorbide mononitrate 30 mg 15 mg PO QAM 09/06/23 10/26/23 Unknown History tablet,extended release 24 hr lisinopril 10 mg tablet 10 mg PO BID 09/06/23 10/26/23 Unknown History mirtazapine 15 mg tablet 15 mg PO BEDTIME 09/06/23 10/26/23 Unknown History omeprazole 40 mg capsule,delayed 40 mg PO QAM 09/06/23 10/26/23 Unknown History release sertraline 50 mg tablet (Zoloft) 50 mg PO QAM 09/06/23 10/26/23 Unknown History trazodone 50 mg tablet 50 mg PO BEDTIME 09/06/23 10/26/23 Unknown History potassium gluconate 595 mg (99 mg) 595 mg PO BID #60 tabs 10/16/23 10/26/23 Unknown Rx tablet Allergies Allergy/AdvReac Type Severity Reaction Status Date / Time No Known Allergies Allergy Unverified 10/25/23 19:41 PFSH Acute 2 PFSH: Medical History (Updated 10/26/23 @ 14:03 by Raad Garcia MD) Depression Hypertension GERD (gastroesophageal reflux disease) Vitals/I&O/Wt Last Vital Signs Temp 97.7 F 10/25/23 19:29 Pulse 102 H 10/26/23 10:53 Resp 16 10/25/23 19:29 BP 160/85 10/26/23 10:53 Pulse Ox 97 10/26/23 10:53 O2 Del Method Room Air 10/26/23 10:53 Weight last 48 hrs Weight 58.967 kg Physical Exam 2 Narrative: General: Patient is awake. Frail-appearing. Head: Normocephalic. Atraumatic. EOM intact. Neck: No JVD. Cardiovascular: RRR. No gallops. Slight systolic murmur. Lungs: Clear to auscultation, no use of accessory muscles, no crackles or wheezes. Skin: No jaundice. No rashes. Abdomen: Normal bowel sounds, abdomen soft and nontender. Genito Urinary: Genital exam not performed since complaints not related. Rectal: Rectal exam not performed since no symptoms indicated blood loss. Extremities: No cyanosis or clubbing. Musculoskeletal: No swollen or erythematous joints. Neurological: Moves all 4 extremities. No myoclonus. Data 10/25/23 20:19 10/26/23 10:21 A&P Assessment and plan (1) Failure to thrive: Failure to thrive in adult Patient unsafe to discharge to home She likely needs placement Therapy evaluation to help assist in appropriate level of care Recent UTIs noted, hyaline cast and current urinalysis, will request repeat urinalysis to be performed (2) Dementia: Type unclear, seems to be progressing May benefit from neurology evaluation when available High risk for delirium Avoid further sedating medications if possible She is currently requiring sitter, discontinue as tolerated (3) Hypokalemia: Status post replacement Recheck labs in a.m. (4) Hypercalcemia: Could be contributing to mentation possibly Treated with IV fluids Will repeat calcium level in a.m. (5) Hypomagnesemia: Status post replacement Recheck in a.m. (6) Hyperbilirubinemia: Unclear etiology Benign abdominal exam Continue to monitor (7) GERD (gastroesophageal reflux disease): Continue PPI, formulary version (8) Hypertension: Continue lisinopril (9) Depression: Continue home medications Plan DVT prophylaxis: Lovenox CODE STATUS: Assume full code Attestations 2 Medical Necessity Statement*: Patient presents with worsening dementia symptoms for which she will be observed with expected hospitalization not to cross 2 midnights to evaluate for safe placement. Coding Level of Care Code Acute Code for Chg Fwd Diagnoses Failure to thrive Dementia F03.90 Hypokalemia E87.6 Hypercalcemia E83.52 Hypomagnesemia E83.42 Hyperbilirubinemia E80.6 GERD (gastroesophageal reflux disease) K21.9 Hypertension I10 Depression F32.A
[2023-10-26] MEDS: enoxaparin 40 mg/0.4 mL Syringe SUBCUT (15:12)
[2023-10-26] MEDS: lisinopril 10 mg Tablet PO (17:21)
[2023-10-26] MEDS: sennosides 8.6 mg Tablet 17.1999999999999993 MG PO (17:21)
[2023-10-26] MEDS: trazodone 50 mg Tablet PO (20:13)
[2023-10-26] MEDS: mirtazapine 15 mg Tablet PO (20:13)
[2023-10-26] MEDS: quetiapine 25 mg Tablet PO (20:13)
[2023-10-27 05:00] VITALS: BP 149/82; PULSE 96; RESP 15; TEMP 36.5; O2SAT 93
--- NOTE | 2023-10-27 05:58 | PC.NURSE ---
pt rested most of the night with brief wake times of confusion and trying to get out of bed. Responses also not always related to questions asked of patient to determine why patient was seeing in need of something. This nurse had much difficulty redirecting patient and she would not follow commands appropriately, including simply simply taking sips of water through her straw.
[2023-10-27 06:33] LABS: Alanine Aminotransferase 8 U/L (0-33); Albumin Level 3.2 g/dL (3.5-5.2); Alkaline Phosphatase 84 U/L (35-105); Anion Gap 12.8 (5-19); Aspartate Amino Transferase 30 U/L (0-32); Blood Urea Nitrogen 12 mg/dL (8-23); Calcium 9.3 mg/dL (8.5-10.5); Carbon Dioxide 28 mmol/L (22-29); Chloride 107 mmol/L (98-107); Globulin 2.8 g/dL (1.3-4.6); Glucose 78 mg/dL (65-115); Magnesium 1.7 mg/dL (1.7-2.3); Osmolality Calculated 297 mOsm/kg (285-295); Phosphorus 2.9 mg/dL (2.5-4.5); Potassium 3.8 mmol/L (3.5-5.1); Sodium 144 mmol/L (136-145); Total Bilirubin 1.3 mg/dL (0.15-1.2)
[2023-10-27 07:58] VITALS: BP 115/67; PULSE 86; RESP 16; TEMP 36.8; O2SAT 94
[2023-10-27 09:08] LABS: Vitamin B12 1461 pg/mL (232-1245)
--- NOTE | 2023-10-27 09:52 | P.PN_ITS ---
Subjective 2 Subjective: Patient remains very confused. She is requiring sitter. She is not oriented to time or situation. Following complaint is repeatedly wanting to use the restroom over and over again. Medications: Reviewed: Yes Vitals/I&O/Wt Last Vital Signs Temp 98.3 F 10/27/23 07:58 Pulse 86 10/27/23 07:58 Resp 16 10/27/23 07:58 BP 115/67 10/27/23 07:58 Pulse Ox 94 10/27/23 07:58 O2 Del Method Room Air 10/27/23 07:58 10/26/23 10/27/23 10/27/23 22:59 06:59 14:59 Intake Total 250 / 250 Output Total 225 / 225 Balance 250 / 250 -225 / 25 Weight last 48 hrs Weight 49.498 kg Weight 49.124 kg Weight 58.967 kg Physical Exam 2 Narrative: General: Patient is initially sleeping but awakens to name. Frail-appearing. Not oriented to situation, time, or place. Head: Normocephalic. Atraumatic. EOM intact. Neck: No JVD. Cardiovascular: RRR. No gallops. Slight systolic murmur.. Lungs: Clear to auscultation, no use of accessory muscles, no crackles or wheezes. Skin: No jaundice. No rashes. Abdomen: Normal bowel sounds, abdomen soft and nontender. Genito Urinary: Genital exam not performed since complaints not related. Rectal: Rectal exam not performed since no symptoms indicated blood loss. Extremities: No cyanosis or clubbing. Musculoskeletal: No swollen or erythematous joints. Neurological: Moves all 4 extremities. No myoclonus. Data 10/25/23 20:19 10/27/23 06:03 A&P Assessment and plan (1) Failure to thrive: Failure to thrive in adult Patient unsafe to discharge to home Met with son late yesterday, he is conflicted regarding placement; his preference would be to set up a home environment that safe for her, unclear if this is going to be a possibility or not. We will need social work/case management assistance when available. Therapy evaluation to help assist in appropriate level of care Recent UTIs noted, hyaline cast and current urinalysis, will request repeat urinalysis to be performed Check B12 level (2) Dementia: Type unclear, seems to be advanced May benefit from neurology evaluation when available High risk for delirium Avoid further sedating medications if possible She is currently requiring sitter, unable to discontinue due to her poor orientation and high fall risk (3) Hypokalemia: Status post replacement Potassium is improved (4) Hypercalcemia: Resolved after IV fluids (5) Hypomagnesemia: Resolved after replacement (6) Hyperbilirubinemia: Improved Abdominal exam is benign (7) GERD (gastroesophageal reflux disease): Continue PPI, formulary version (8) Hypertension: Continue lisinopril (9) Depression: Continue home medications Plan DVT prophylaxis: Lovenox CODE STATUS: Assume full code Attestations 2 Medical Necessity Statement*: Patient requires ongoing hospitalization as he is currently not a safe discharge plan for patient. She needs 24 hours care which does not dispo option currently available to facilitate this. Coding Level of Care Code Acute Code for Chg Fwd Diagnoses Failure to thrive Dementia F03.90 Hypokalemia E87.6 Hypercalcemia E83.52 Hypomagnesemia E83.42 Hyperbilirubinemia E80.6 GERD (gastroesophageal reflux disease) K21.9 Hypertension I10 Depression F32.A
[2023-10-27] MEDS: aspirin 325 mg Tablet PO (10:35)
[2023-10-27] MEDS: sennosides 8.6 mg Tablet 17.1999999999999993 MG PO ×2 (10:35→17:26)
[2023-10-27] MEDS: lisinopril 10 mg Tablet PO (10:35)
[2023-10-27] MEDS: isosorbide mononitrate ER 30 mg Tablet 15 MG PO (10:35)
[2023-10-27] MEDS: sertraline 50 mg Tablet PO (10:35)
[2023-10-27] MEDS: pantoprazole DR 40 mg Tablet PO (10:36)
[2023-10-27 12:00] VITALS: BP 140/75; PULSE 94; RESP 20; TEMP 36.6; O2SAT 92
[2023-10-27 15:52] VITALS: BP 112/55; PULSE 94; RESP 17; TEMP 36.6; O2SAT 93
[2023-10-27] MEDS: enoxaparin 40 mg/0.4 mL Syringe SUBCUT (16:03)
--- NOTE | 2023-10-27 18:42 | PC.NURSE ---
sabrina reported to this RN that the patients son at bedside offered the patient edible marijuana. the patients son stepped off the floor and returned to patient room smelling of marijuana. security notified and guest escorted off the unit by Jam with security.
[2023-10-27 19:44] VITALS: BP 104/65; PULSE 85; RESP 16; TEMP 36.6; O2SAT 95
[2023-10-27] MEDS: quetiapine 25 mg Tablet PO (20:43)
[2023-10-27] MEDS: trazodone 50 mg Tablet PO (20:43)
[2023-10-27] MEDS: mirtazapine 15 mg Tablet PO (20:43)
[2023-10-27 23:59] VITALS: BP 117/72; PULSE 78; RESP 17; TEMP 36.6; O2SAT 96
[2023-10-28 04:00] VITALS: BP 103/63; PULSE 69; RESP 17; TEMP 36.8; O2SAT 94
[2023-10-28] MEDS: isosorbide mononitrate ER 30 mg Tablet 15 MG PO (05:47)
[2023-10-28] MEDS: sertraline 50 mg Tablet PO (05:47)
[2023-10-28 07:25] VITALS: BP 117/65; PULSE 93; RESP 16; TEMP 36.4; O2SAT 90
[2023-10-28] MEDS: sennosides 8.6 mg Tablet 17.1999999999999993 MG PO ×2 (09:24→17:48)
[2023-10-28] MEDS: lisinopril 10 mg Tablet PO ×2 (09:24→17:48)
[2023-10-28] MEDS: pantoprazole DR 40 mg Tablet PO (09:24)
[2023-10-28] MEDS: aspirin 325 mg Tablet PO (09:24)
[2023-10-28 11:24] VITALS: BP 137/64; PULSE 67; RESP 17; TEMP 36.6; O2SAT 92
--- NOTE | 2023-10-28 11:34 | P.PN_ITS ---
Subjective 2 Subjective: Patient found to be very lethargic this morning on exam. She remains confused which seems to be her demented baseline. There is still not a safe disposition for patient. Hopefully case management and social work will be available in a.m. the a.m. to assist with this. Medications: Reviewed: Yes Vitals/I&O/Wt Last Vital Signs Temp 97.6 F 10/28/23 07:25 Pulse 93 10/28/23 07:25 Resp 16 10/28/23 07:25 BP 117/65 10/28/23 07:25 Pulse Ox 90 10/28/23 07:25 O2 Del Method Room Air 10/28/23 07:25 10/27/23 10/28/23 10/28/23 22:59 06:59 14:59 Intake Total 240 / 240 Balance 240 / 240 Weight last 48 hrs Weight 49.612 kg Weight 49.498 kg Weight 49.124 kg Physical Exam 2 Narrative: General: Patient is lethargic. Briefly arouses but does not answer any my questions. Head: Normocephalic. Atraumatic. Neck: No JVD. Cardiovascular: RRR. No gallops. Systolic murmur. Lungs: Clear to auscultation, no use of accessory muscles, no crackles or wheezes. Skin: No jaundice. No rashes. Abdomen: Normal bowel sounds, abdomen soft and nontender. Extremities: No cyanosis or clubbing. Musculoskeletal: No swollen or erythematous joints. Neurological: No myoclonus. Data 10/25/23 20:19 10/27/23 06:03 A&P Assessment and plan (1) Failure to thrive: Failure to thrive in adult Patient unsafe to discharge to home without 24/ care Therapy evaluation to help assist in appropriate level of care Case management/social work consult when available to assist with disposition options (2) Dementia: Type unclear, seems to be advanced May benefit from neurology evaluation as outpatient High risk for delirium Avoid further sedating medications She is currently requiring sitter, unable to discontinue due to her poor orientation and high fall risk (3) Hypokalemia: Resolved (4) Hypercalcemia: Resolved (5) Hypomagnesemia: Resolved (6) Hyperbilirubinemia: Improved Abdominal exam is benign (7) GERD (gastroesophageal reflux disease): Continue PPI, formulary version (8) Hypertension: Continue lisinopril (9) Depression: Continue home medications Plan DVT prophylaxis: Lovenox CODE STATUS: Assume full code Attestations 2 Medical Necessity Statement*: Patient requires ongoing hospitalization as there is not currently not a safe discharge plan for patient. She needs 24 hours care which there is not a dispo option currently available to facilitate this. Coding Level of Care Code Acute Code for Chg Fwd Diagnoses Failure to thrive Dementia F03.90 Hypokalemia E87.6 Hypercalcemia E83.52 Hypomagnesemia E83.42 Hyperbilirubinemia E80.6 GERD (gastroesophageal reflux disease) K21.9 Hypertension I10 Depression F32.A
[2023-10-28] MEDS: enoxaparin 40 mg/0.4 mL Syringe SUBCUT (15:11)
[2023-10-28 15:34] VITALS: BP 167/79; PULSE 73; RESP 16; TEMP 36.8; O2SAT 92
[2023-10-28 20:00] VITALS: BP 117/58; PULSE 67; RESP 16; TEMP 36.7; O2SAT 95
[2023-10-28] MEDS: mirtazapine 15 mg Tablet PO (20:25)
[2023-10-28] MEDS: quetiapine 25 mg Tablet PO (20:25)
[2023-10-28] MEDS: trazodone 50 mg Tablet PO (20:25)
[2023-10-29 00:18] VITALS: BP 163/78; PULSE 66; RESP 18; TEMP 36.7; O2SAT 93
[2023-10-29 04:50] VITALS: BP 151/70; PULSE 69; RESP 18; TEMP 36.8; O2SAT 92
[2023-10-29] MEDS: sertraline 50 mg Tablet PO (05:08)
[2023-10-29] MEDS: isosorbide mononitrate ER 30 mg Tablet 15 MG PO (05:08)
[2023-10-29 07:43] VITALS: BP 176/87; PULSE 93; RESP 16; TEMP 36.7; O2SAT 92
[2023-10-29] MEDS: lisinopril 10 mg Tablet PO (08:14)
[2023-10-29] MEDS: aspirin 325 mg Tablet PO (08:14)
[2023-10-29] MEDS: pantoprazole DR 40 mg Tablet PO (08:14)
[2023-10-29] MEDS: sennosides 8.6 mg Tablet 17.1999999999999993 MG PO (08:14)
[2023-10-29 10:23] LABS: Bilirubin Urine 1+ (Negative); Blood Urine Neg (Negative); Glucose Urine UA Norm (Normal); Ketones Urine Negative (Negative); Leukocyte Esterase Urine Negative (Negative); Nitrate Urine Negative (Negative); Protein Urine Neg (Negative); Specific Gravity, Urine 1.025 (1.005-1.030); Urine Appearance Clear (CLEAR); Urine Color Dark Yellow (Yellow); Urobilinogen Urine Norm (Negative); pH Urine 6 (5-7)
[2023-10-29 10:49] LABS: Add Urine Culture? No; Bacteria Urine TRACE /hpf; Fine Granular Casts Urine 0-4 /lpf; Mucus Urine TRACE /hpf; RBC Urine 0-4 /hpf (0-2); Squamous Epithelial Cell Urine 0-4 /hpf (0-5); Transitional Epi Cells Urine 0-4 /hpf; WBC Urine 0-4 /hpf (0-5)
--- NOTE | 2023-10-29 11:00 | P.DS_ITS ---
Discharge Providers Date of Admission: 10/26/23 11:46 Date of Discharge: October 29, 2023 Attending Provider at Admission: Raad Garcia MD Attending Provider at Discharge: Supriya Webster MD Diagnoses at Discharge Discharge Diagnosis (1) Failure to thrive: Status: Acute (2) Dementia: Status: Acute (3) Hypokalemia: Status: Acute (4) Hypercalcemia: Status: Acute (5) Hypomagnesemia: Status: Acute (6) Hyperbilirubinemia: Status: Acute (7) GERD (gastroesophageal reflux disease): Status: Acute (8) Hypertension: Status: Acute (9) Depression: Status: Acute Reason for Visit Reason for Visit: Confusion Hospital Course Hospital Course 73-year female with history of dementia, lives alone, was brought to the ED by the son as he could not take care of her apparently son had [place] [facility] when he got out of the present it checked on his mother and found out that her dementia has worsened she was living 3 hours away from her son. Send has brought her to his place at this point but wanted to evaluation in the hospital for her delirium/dementia and UTI. Patient was given IV fluid and antibiotics she is very pleasant and cooperative. Required sitter only for 48 hours, at the time of discharge son is stating that they are not interested in [facility] placement they are not looking for long-term placement at this point. He has requested home health services, upper caser has been updated. I will discharge patient home, I have continued her antihypertensive regimen, will add Seroquel which she can take at the bedtime, will also add Xanax for as needed use for acute anxiety episodes Urine culture positive for Enterococcus faecalis and Proteus,, I will choose levofloxacin as per the culture sensitivity report TSH abnormal however free T4 normal, B12 upper high level CT head unremarkable Physical Exam Narrative: Patient is pleasant and cooperative Able to answer simple question GCS 15 Nonfocal neuroexam Pleasant and cooperative Discharge Data Studies Completed and Pending Completed Studies During Hospitalization Category Date Time Status CT chest abdomen pelvis [CT chest abdpel w/*[id number] Cat Scan 10/25/23 23:19 Completed ] Stat CT head wo con* [id number] Stat Cat Scan 10/26/23 11:44 Completed XR chest 1V portable [id number] Stat Exams 10/25/23 21:39 Completed Radiology Impressions Chest X-Ray 10/25/23 21:39 IMPRESSION: No acute cardiopulmonary disease. Chest/Abdomen/Pelvis CT 10/25/23 23:19 IMPRESSION: 1. No acute cardiopulmonary disease. 2. 8 mm noncalcified nodule in the superior segment of the left lower lobe. Recommend follow-up CT in 3 months. PET-CT or biopsy could also be considered. IMPRESSION: 1. No acute intra-abdominal or pelvic process. 2. Nodularity of the liver surface. Correlate with possible cirrhosis. Mild splenomegaly may indicate portal hypertension. Questionable splenorenal shunt. Head CT 10/26/23 11:44 IMPRESSION: No large territorial infarct or intracranial bleed. Laboratory Results WBC 8.84 10^3/uL (3.29-11.43) 10/25/23 20:19 RBC 5.58 10^6/uL (3.85-5.65) 10/25/23 20:19 Hgb 14.90 g/dL (11.27-16.99) 10/25/23 20:19 Hct 45.4 % (36-47) 10/25/23 20:19 MCV 81.4 fl (85-98) L 10/25/23 20:19 MCH 26.7 pg (27-33) L 10/25/23 20:19 MCHC 32.8 g/dL (30-55) 10/25/23 20:19 RDW 18.0 % (12.1-15.1) H 10/25/23 20:19 Plt Count 142 10^3/cmm (157-399) L 10/25/23 20:19 MPV 10.5 fL (7.4-10.4) H 10/25/23 20:19 Neut % (Auto) 67.0 % 10/25/23 20:19 Lymph % (Auto) 20.7 % 10/25/23 20:19 [place] % (Auto) 8.1 % 10/25/23 20:19 Eos % (Auto) 2.9 % 10/25/23 20:19 Baso % (Auto) 1.0 % 10/25/23 20:19 Neut # (Auto) 5.91 10^3/uL (1.8-7.7) 10/25/23 20:19 Lymph # (Auto) 1.8 10^3/uL (0.8-4.8) 10/25/23 20:19 [place] # (Auto) 0.7 10^3/uL (0.2-0.9) 10/25/23 20:19 Eos # (Auto) 0.3 10^3/uL (0.0-0.8) 10/25/23 20:19 Baso # (Auto) 0.1 10^3/uL (0.0-0.1) 10/25/23 20:19 Nucleated RBC % (auto) 0 % 10/25/23 20:19 Nucleated RBCs # 0.0 /100WBC 10/25/23 20:19 Sodium 144 mmol/L (136-145) 10/27/23 06:03 Potassium 3.8 mmol/L (3.5-5.1) 10/27/23 06:03 Chloride 107 mmol/L (98-107) 10/27/23 06:03 Carbon Dioxide 28 mmol/L (22-29) 10/27/23 06:03 Anion Gap 12.8 (5-19) 10/27/23 06:03 BUN 12 mg/dL (8-23) 10/27/23 06:03 Creatinine 0.9 mg/dL (0.5-0.9) 10/27/23 06:03 GFR Calculation Not Reportable 10/27/23 06:03 Glucose 78 mg/dL (65-115) 10/27/23 06:03 Calculated Osmolality 297 mOsm/kg (285-295) H 10/27/23 06:03 Calcium 9.3 mg/dL (8.5-10.5) 10/27/23 06:03 Phosphorus 2.9 mg/dL (2.5-4.5) 10/27/23 06:03 Magnesium 1.7 mg/dL (1.7-2.3) 10/27/23 06:03 Total Bilirubin 1.3 mg/dL (0.15-1.2) H 10/27/23 06:03 Direct Bilirubin 0.70 mg/dL (0.00-0.30) H 10/25/23 20:19 AST 30 U/L (0-32) 10/27/23 06:03 ALT 8 U/L (0-33) 10/27/23 06:03 Alkaline Phosphatase 84 U/L (35-105) 10/27/23 06:03 Total Protein 6.0 g/dL (6.6-8.7) L 10/27/23 06:03 Albumin 3.2 g/dL (3.5-5.2) L 10/27/23 06:03 Globulin 2.8 g/dL (1.3-4.6) 10/27/23 06:03 Vitamin B12 1461 pg/mL (232-1245) H 10/27/23 06:03 TSH 7.40 uIU/mL (0.27-4.20) H 10/25/23 20:19 Free T4 1.44 ng/dL (0.82-1.77) 10/25/23 20:19 Free T3 3.8 PG/ML (2.0-4.4) 10/25/23 20:19 Urine Color Dark yellow (Yellow) 10/29/23 08:18 Urine Appearance Clear (CLEAR) 10/29/23 08:18 Urine pH 6 (5-7) 10/29/23 08:18 Ur Specific [place] 1.025 (1.005-1.030) 10/29/23 08:18 Urine Protein Neg (Negative) 10/29/23 08:18 Urine Glucose (UA) Norm (Normal) 10/29/23 08:18 Urine Ketones Negative (Negative) 10/29/23 08:18 Urine Blood Neg (Negative) 10/29/23 08:18 Urine Nitrate Negative (Negative) 10/29/23 08:18 Urine Bilirubin 1+ (Negative) H 10/29/23 08:18 Urine Urobilinogen Norm mg/dL (Negative) 10/29/23 08:18 Ur Leukocyte Esterase Negative (Negative) 10/29/23 08:18 Urine RBC 0-4 /hpf (0-2) H 10/29/23 08:18 Urine WBC 0-4 /hpf (0-5) H 10/29/23 08:18 Ur Squamous Epith Cells 0-4 /hpf (0-5) H 10/29/23 08:18 Ur Transition Epith Cell 0-4 /hpf 10/29/23 08:18 Calcium Oxalate Crystal 0-4 /hpf H 10/25/23 22:39 Amorphous Sediment Not Reportable 10/29/23 08:18 Urine Bacteria Trace /hpf (NONE) 10/29/23 08:18 Hyaline Casts 10-15 /lpf H 10/29/23 08:18 Fine Granular Casts 0-4 /lpf H 10/29/23 08:18 Urine Mucus Trace /hpf 10/29/23 08:18 Salicylates < 0.3 mg/dL (3-10) L 10/25/23 20:19 Urine Opiates Screen Negative ng/mL (Negative) 10/25/23 22:39 Acetaminophen < 5.0 ug/mL (10-30) L 10/25/23 20:19 Ur Barbiturates Screen Negative ng/mL (Negative) 10/25/23 22:39 Ur Phencyclidine Scrn Negative ng/mL (Negative) 10/25/23 22:39 Ur Amphetamines Screen Negative ng/mL (Negative) 10/25/23 22:39 U Benzodiazepines Scrn Negative ng/mL (Negative) 10/25/23 22:39 Urine Cocaine Screen Negative ng/mL (Negative) 10/25/23 22:39 U Marijuana (THC) Screen Positive ng/mL (Negative) H 10/25/23 22:39 Ethyl Alcohol < 10 mg/dL (0-10) 10/25/23 20:19 Influenza Type A Ag negative (Negative) 10/25/23 22:09 Influenza Type B Ag negative (Negative) 10/25/23 22:09 SARS-CoV-2 Ag (Rapid) negative (Negative) 10/25/23 22:09 Vitals Last Vital Signs Temp 98.1 F 10/29/23 07:43 Pulse 93 10/29/23 07:43 Resp 16 10/29/23 07:43 BP 176/87 10/29/23 07:43 Pulse Ox 92 10/29/23 07:43 O2 Del Method Room Air 10/29/23 07:43 Discharge Plan Discharge Patient Disposition: Home Health Service Condition: Stable Prescriptions: New quetiapine 25 mg Tablet 25 mg PO BEDTIME Qty: 60 2RF Xanax 0.5 mg tablet 0.5 mg PO BID PRN (Reason: anxiety) Qty: 30 0RF levofloxacin 750 mg tablet 750 mg PO DAILY Qty: 10 0RF Continued isosorbide mononitrate 30 mg Tablet Extended Release 24 Hr 15 mg PO QAM omeprazole 40 mg Capsule,Delayed Release(Dr/Ec) 40 mg PO QAM albuterol sulfate 90 mcg/actuation Hfa Aerosol Inhaler 2 puff INHALATION QID PRN (Reason: Shortness Of Breath) sertraline [Zoloft] 50 mg Tablet 50 mg PO QAM cholecalciferol (vitamin D3) [Vitamin D3] 125 mcg (5,000 unit) Tablet 10,000 unit PO DAILY potassium gluconate 595 mg (99 mg) Tablet 595 mg PO BID Qty: 60 0RF Changed lisinopril 10 mg Tablet 20 mg PO BID Qty: 60 0RF Discontinued trazodone 50 mg Tablet 50 mg PO BEDTIME aspirin 325 mg Tablet 325 mg PO DAILY ibuprofen 200 mg Tablet 200 - 800 mg PO Q6H PRN (Reason: Pain) mirtazapine 15 mg Tablet 15 mg PO BEDTIME Discharge Orders: Discharge Order (Routine); Ordered 10/29/23 Ordered By: Supriya Webster Discharge Diet: Advance as tolerated Patient Instructions: Altered Mental Status (ED), Opioid Safety Discharge Attestations Time Spent in Discharge Care*: greater than 30 min Quality Metrics Clinical Quality Measures [ No reported AMI, CVA or VTE this stay] Coding Level of Care Code Acute Code for Chg Fwd Diagnoses Failure to thrive Dementia F03.90 Hypokalemia E87.6 Hypercalcemia E83.52 Hypomagnesemia E83.42 Hyperbilirubinemia E80.6 GERD (gastroesophageal reflux disease) K21.9 Hypertension I10 Depression F32.A
[2023-10-29 11:39] VITALS: BP 129/64; PULSE 73; RESP 16; TEMP 36.4; O2SAT 95
--- NOTE | 2023-10-29 11:56 | PC.NURSE ---
Patient has signed discharge paperwork. Patient is finishing her lunch and then will be discharging.
[2023-10-29 12:30] VITALS: BP 129/64; PULSE 73; RESP 16; TEMP 36.4; O2SAT 95
== END 2023-10-29 12:30 | disposition home health service (06) ==
LOC: ER 10-26 11:46 → MEDSURG 10-26 13:55
PROVIDERS: Emergency Medicine; Admitting Provider Internal Medicine; Emergency Provider Emergency Medicine; Visit Provider Internal Medicine
DX: R62.7 Adult failure to thrive (principal); F03.90 Unspecified dementia, unspecified severity, without behavioral disturbance, psychotic disturbance, mood disturbance, and anxiety; E87.6 Hypokalemia; E83.52 Hypercalcemia; E83.42 Hypomagnesemia; E80.6 Other disorders of bilirubin metabolism; K21.9 Gastro-esophageal reflux disease without esophagitis; I10 Essential (primary) hypertension; F32.A Depression, unspecified
CPT/HCPCS: 36415; 70450; 71045; 71260; 74177; 80048; 80053; 80076; 80306; 80307; 81001; 82607; 83735; 84100; 84132; 84439; 84443; 84481; 85025; 87426; 87804; 93005; 96365; 96372; 96375; 97165; 99285; G0378; J0360; J1630; J1650; J2060; J3475; Q9967

== ENCOUNTER 2023-11-22 14:32 | Emergency (ER) | payer MEDICARE, MEDICAID, SELFPAY ==
[2023-11-22 14:35] VITALS: BP 152/93; PULSE 70; RESP 16; TEMP 37.1; O2SAT 98
--- NOTE | 2023-11-22 14:46 | ECG_ITS ---
[facility] Test Date: 2023-11-22 Pat Name: Sandra Gamboa Department: Room: Gender: Female Acquisition Advisor: : [id number] Requested By: Benigno Mac Order Number: [id number] Joseph MD: Eric Altamirano M.D. Measurements Intervals [place] Rate: 68 P: 120 GA: 173 QRS: 14 QRSD: 88 T: 28 QT: 427 QTc: 457 Interpretive Statements SINUS RHYTHM WITH MARKED SINUS ARRHYTHMIA POSSIBLE ANTERIOR MYOCARDIAL INFARCTION , OF INDETERMINATE AGE [30 ms Q WAVE IN V3/V4, OR R < 0.2 mV IN V4] Compared to ECG 10/25/2023 22:16:17 Myocardial infarct finding now present ST (T wave) deviation no longer present Electronically Signed On 11-23-2023 8:09:42 CDT by Eric Altamirano M.D. [email or web address]
--- NOTE | 2023-11-22 15:12 | W.ED.CHESTPA ---
HPI - Chest Pain General: Chief Complaint: Trauma Stated Complaint: sternum pain post choking Time Seen by Provider: 11/22/23 15:01 Source: patient and family (son) Mode of arrival: wheelchair Limitations: no limitations History of Present Illness: Patient is a nice 73-year-old female presents to ED today along with her son for evaluation of sternal pain following the Heimlich maneuver. Son states approximately 6 days ago his mother began choking on a piece of chicken when he performed the Heimlich maneuver to try to dislodge the obstruction. He states he did approximately 6 abdominal/chest thrusts before the obstruction cleared. Patient states she has had some sternal discomfort since then. She is still eating and drinking normally. She does not complain of any shortness of breath or difficulty breathing. She does not complain of abdominal pain. MD complaint: chest pain Onset (ago): day(s) Timing of current episode: constant Prior episodes: No Onset: other (Following Heimlich maneuver) Pain location: other (Sternal) Pain radiation: none Severity: moderate Relieving factors: nothing Exacerbating factors: palpation and movement Associated symptoms: Reports no associated symptoms; Deny abdominal pain, dyspnea, fever(s), palpitations, syncope or vomiting Treatment prior to arrival: none Risk Factors: Thoracic aortic dissection risk factors: none Related Data: On Oral Contraceptives: No Review of Systems Const: Denies: fever(s) Card: Reports: chest pain; Denies: palpitations, edema, syncope, pre-syncope, dyspnea on exertion or orthopnea Resp: Denies: dyspnea GI: Denies: abdominal pain or vomiting : Denies: flank pain or dysuria Musc: Denies: neck pain, back pain, extremity pain or joint pain Neuro: Denies: headache(s) or dizziness [facility] ED PFSH: Medical History Electrolyte abnormality Coronary stent patent Depression Hypertension GERD (gastroesophageal reflux disease) Failure to thrive Altered mental status Dementia Hyperbilirubinemia Hypomagnesemia Hypercalcemia Hypokalemia Family History Father Heart disease Mother Cancer Social History Smoking and tobacco/nicotine status: current every day tobacco/nicotine user Quit status (tobacco/nicotine): not considering quitting Alcohol intake: former Substance/Drug Use: current Substance/Drug use frequency: few times a week Physical Exam Const: COMMON NORMALS: no acute distress, patient oriented x3, no limitations, alert and well nourished GENERAL APPEARANCE: cooperative and frail appearing ORIENTATION/CONSCIOUSNESS: Yes awake OTHER: hx of dementia HENMT: COMMON NORMALS: normocephalic and atraumatic HEAD & SCALP: normal to inspection, normocephalic and atraumatic Neck/C-Spine: GENERAL: Yes normal visual inspection Chest: COMMONS NORMALS: normal inspection of the chest OTHER: TTP sternum; no crepitus noted; no signs of ecchymosis Resp: COMMON NORMALS: normal respiratory effort and clear to auscultation bilaterally AUSCULTATION: clear to auscultation bilaterally Cardio: COMMON NORMALS: regular rate and regular rhythm RATE: regular rate RHYTHM: regular rhythm GI: COMMON NORMALS: Normal to inspection, nondistended, normoactive bowel sounds present, Soft to palpation, non-tender, No hepatosplenomegaly present and no masses INSPECTION: Yes normal to inspection PALPATION: Yes Soft to palpation and Yes No hepatosplenomegaly present : COMMON NORMALS: Yes no CVA tenderness BLADDER/KIDNEY EXAM: Yes no CVA tenderness Back/Pelvis: COMMON NORMALS: no CVA tenderness and thoracic and lumbar spine normal to inspection Extremity: GENERAL: Yes normal exam except as noted Neuro: CLEM COMA SCALE: document GCS findings Clem coma scale eye opening: Spontaneous Golden coma scale verbal response: Orientated Golden coma scale motor response: Obey commands Clem coma scale total score: 15 COMMON NORMALS: patient oriented x3, moves all extremities, no focal motor deficits and no sensory deficits noted SENSORIUM/ORIENTATION: Yes alert Skin: NARRATIVE SKIN EXAM: no ecchymosis noted Course Vital Signs: Vital signs: Vital Signs Temperature 98.7 F 11/22/23 16:01 Pulse Rate 68 11/22/23 16:01 Respiratory Rate 16 11/22/23 16:01 Blood Pressure 148/96 11/22/23 16:01 Pulse Oximetry 99 11/22/23 16:01 Oxygen Delivery Me thod Room Air 11/22/23 14:35 MDM - Chest Pain Medical Decision Making Patient appears in no acute distress. Her vital signs are stable. XR of her sternum and CXR unremarkable. Patient will be allowed discharge with return precautions. Medical Records I reviewed the patient's medical records. Lab Data Radiology Impressions Chest X-Ray 11/22/23 15:14 IMPRESSION: 1. No acute cardiopulmonary finding. Sternum X-Ray 11/22/23 15:14 IMPRESSION: 1. No sternal fracture or other significant finding. All radiology interpretation(s) finalized by discharge Discharge Plan Discharge Patient Disposition: Home Clinical Impression: Contusion of sternum Qualifiers: Encounter type: initial encounter Qualified Code(s): S20.219A - Contusion of unspecified front wall of thorax, initial encounter Condition: Stable Prescriptions: No Action isosorbide mononitrate 30 mg tablet extended release 24 hr 15 mg PO QAM Qty: 30 3RF Xanax 0.5 mg tablet 0.5 mg PO BID PRN (Reason: anxiety) 30 Days Qty: 30 2RF lisinopril 20 mg tablet 20 mg PO DAILY Qty: 30 5RF potassium gluconate 595 mg (99 mg) tablet 595 mg PO DAILY Qty: 30 5RF sertraline [Zoloft] 50 mg tablet 50 mg PO QAM Qty: 30 5RF omeprazole 40 mg Capsule,Delayed Release(Dr/Ec) 40 mg PO QAM albuterol sulfate 90 mcg/actuation Hfa Aerosol Inhaler 2 puff INHALATION QID PRN (Reason: Shortness Of Breath) cholecalciferol (vitamin D3) [Vitamin D3] 125 mcg (5,000 unit) Tablet 10,000 unit PO DAILY quetiapine 25 mg Tablet 25 mg PO BEDTIME Qty: 60 2RF memantine-donepezil 7-10 mg capsule,sprinkle,ER 24hr 1 cap PO DAILY Qty: 60 4RF Discharge Orders: Discharge ED (Routine); Ordered 11/22/23 Ordered By: Livier Mondragon Referrals: Tim Medina MD [Primary Care Provider] - Coding Level of Care Code ED Pharmaceutical Service Representative for Carol Garner
--- NOTE | 2023-11-22 15:14 | XR_ITS ---
WS: [id number] Exam: XR sternum min 2V [id number] Date/Time of Exam: 11/22/2023 3:25 PM Reason For Exam: pain following Heimlich maneuver No acute sternal fracture is seen. Articular relationships appear to be normal. No obvious chest wall abnormality. XR/XR sternum min 2V [id number] IMPRESSION: 1. No sternal fracture or other significant finding.
--- NOTE | 2023-11-22 15:14 | XR_ITS ---
WS: [id number] Exam: XR chest 1V portable [id number] Date/Time of Exam: 11/22/2023 3:25 PM Reason For Exam: pain following Heimlich maneuver No priors. The lungs are fully inflated and clear. Heart size top limits normal. The mediastinum is normal in co ntour. Bilateral apical pleural thickening. Atherosclerosis of the thoracic aorta. Signs of coronary artery stenting. XR/XR chest 1V portable [id number] IMPRESSION: 1. No acute cardiopulmonary finding.
[2023-11-22 16:01] VITALS: BP 148/96; PULSE 68; RESP 16; TEMP 37.1; O2SAT 99
== END 2023-11-22 16:01 | disposition home or self-care (01) ==
PROVIDERS: Emergency Provider Physician Assistant; PCP Family Medicine Adult Medicine
DX: S20.219A Contusion of unspecified front wall of thorax, initial encounter (principal); I10 Essential (primary) hypertension; F03.90 Unspecified dementia, unspecified severity, without behavioral disturbance, psychotic disturbance, mood disturbance, and anxiety; Z72.0 Tobacco use; W50.0XXA Accidental hit or strike by another person, initial encounter
CPT/HCPCS: 71045; 71120; 93005; 99284

== ENCOUNTER 2023-12-18 20:34 | Emergency (ER) | payer MEDICARE, MEDICAID, SELFPAY ==
[2023-12-18 20:38] VITALS: BP 163/107; PULSE 67; RESP 16; TEMP 36.5; O2SAT 95
[2023-12-18 22:13] LABS: Basophils % 0.9 %; Eosinophils # 0.4 10^3/uL (0.0-0.8); Eosinophils % 8.2 %; Hematocrit 39.7 % (36-47); Lymphocytes # 0.9 10^3/uL (0.8-4.8); Lymphocytes % 21.7 %; Mean Corpuscular Hemoglobin 28.4 pg (27-33); Mean Corpuscular Volume 86.1 fl (85-98); Monocytes # 0.4 10^3/uL (0.2-0.9); Neutrophils # 2.51 10^3/uL (1.8-7.7); Neutrophils % 58.7 %; Nucleated Red Blood Cells % 0 %; Platelet Count 53 10^3/cmm (157-399); Red Blood Count 4.61 10^6/uL (3.85-5.65); Red Cell Distribution Width 17.1 % (12.1-15.1); White Blood Count 4.28 10^3/uL (3.29-11.43)
[2023-12-18 22:34] LABS: Alanine Aminotransferase 11 U/L (0-33); Albumin Level 3.5 g/dL (3.5-5.2); Alkaline Phosphatase 88 U/L (35-105); Anion Gap 13.6 (5-19); Aspartate Amino Transferase 23 U/L (0-32); Blood Urea Nitrogen 13 mg/dL (8-23); Calcium 9.1 mg/dL (8.5-10.5); Carbon Dioxide 22 mmol/L (22-29); Chloride 107 mmol/L (98-107); Creatinine Clr Calc Pharmacy 53.2353; Globulin 2.7 g/dL (1.3-4.6); Glucose 92 mg/dL (65-115); Lipase 55 U/L (13-60); Osmolality Calculated 288 mOsm/kg (285-295); Potassium 3.6 mmol/L (3.5-5.1); Sodium 139 mmol/L (136-145); Total Protein 6.2 g/dL (6.6-8.7)
[2023-12-18 22:35] VITALS: BP 154/75; PULSE 84; RESP 16; O2SAT 95
[2023-12-18 22:43] LABS: Slide Review Slide Review Perform
--- NOTE | 2023-12-18 22:56 | ED_ITS ---
HPI - Nausea/Vomiting/Diarrhea 2 General: Chief complaint: Nausea/Vomiting/Diarrhea Stated complaint: Fever Time Seen by Provider: 12/18/23 22:34 History of Present Illness: Patient was brought in by son with complaints of fever times last 2 days as well as diarrhea. Send did not check temperature but he said he was high and he has been given her 400 mg ibuprofen about every 4-6 hours. Patient has dementia and is very informative most history is taken from the son. He said the patient's been having severe diarrhea even though she took 4 Imodium today. He said the last time she had something like this she had a UTI. Review of Systems 2 General: Reports: 10 or more systems reviewed and unremarkable except in HPI and below PFSH ED 2 PFSH: Medical History Electrolyte abnormality Coronary stent patent Depression Hypertension GERD (gastroesophageal reflux disease) Failure to thrive Altered mental status Dementia Hyperbilirubinemia Hypomagnesemia Hypercalcemia Hypokalemia Family History Father Heart disease Mother Cancer Social History Smoking and tobacco/nicotine status: current every day tobacco/nicotine user Quit status (tobacco/nicotine): not considering quitting Alcohol intake: former Substance/Drug Use: current Substance/Drug use frequency: few times a week Physical Exam 2 Const: COMMON NORMALS: no acute distress, average body habitus, no limitations, healthy appearing, alert and well nourished HENMT: COMMON NORMALS: normocephalic, atraumatic, hearing grossly normal bilaterally, external ears normal, Normal external nose present and moist oral mucous membranes HEAD & SCALP: normocephalic and atraumatic NOSE: Normal external nose present EXTERNAL EAR: Yes external ears normal Neck/C-Spine: COMMON NORMALS: no JVD Chest: COMMONS NORMALS: normal inspection of the chest and normal palpation of entire chest wall Resp: COMMON NORMALS: normal respiratory effort, No retractions, No use of accessory muscles and clear to auscultation bilaterally AUSCULTATION: clear to auscultation bilaterally Cardio: COMMON NORMALS: no JVD, regular rate, regular rhythm, S1 normal heart sound present, S2 normal heart sound present, No gallops present (Cardio), No clicks present (Cardio), No murmurs present (Cardio) and No rub (Cardio) R ATE: regular rate RHYTHM: regular rhythm HEART SOUNDS: S1 normal heart sound present and S2 normal heart sound present GI: COMMON NORMALS: Normal to inspection, nondistended, normoactive bowel sounds present, Soft to palpation, non-tender, No hepatosplenomegaly present and no masses PALPATION: Yes Soft to palpation and Yes No hepatosplenomegaly present Neuro: SENSORIUM/ORIENTATION: Yes alert Course 2 Vital Signs: Vital signs: Vital Signs Temperature 97.7 F 12/18/23 20:38 Pulse Rate 67 12/18/23 20:38 Respiratory Rate 16 12/18/23 20:38 Blood Pressure 163/107 12/18/23 20:38 Pulse Oximetry 95 12/18/23 20:38 Oxygen Delivery Me thod Room Air 12/18/23 20:38 MDM - Nausea/Vomiting/Diarrhea Medical Decision Making Exam was performed lab work was obtained included CBC CMP lipase urinalysis all of essentially which benign. Except mild worsening thrombocytopenia patient will be discharged home. Medical Records I reviewed the patient's medical records. Lab Data I reviewed the patient's lab results. 12/18/23 21:59 12/18/23 21:59 Laboratory Results WBC 4.28 10^3/uL (3.29-11.43) 12/18/23 21:59 RBC 4.61 10^6/uL (3.85-5.65) 12/18/23 21:59 Hgb 13.10 g/dL (11.27-16.99) 12/18/23 21:59 Hct 39.7 % (36-47) 12/18/23 21:59 MCV 86.1 fl (85-98) 12/18/23 21:59 MCH 28.4 pg (27-33) 12/18/23 21:59 MCHC 33.0 g/dL (30-55) 12/18/23 21:59 RDW 17.1 % (12.1-15.1) H 12/18/23 21:59 Plt Count 53 10^3/cmm (157-399) L 12/18/23 21:59 MPV 11.0 fL (7.4-10.4) H 12/18/23 21:59 Neut % (Auto) 58.7 % 12/18/23 21:59 Lymph % (Auto) 21.7 % 12/18/23 21:59 [place] % (Auto) 10.0 % 12/18/23 21:59 Eos % (Auto) 8.2 % 12/18/23 21:59 Baso % (Auto) 0.9 % 12/18/23 21:59 Neut # (Auto) 2.51 10^3/uL (1.8-7.7) 12/18/23 21:59 Lymph # (Auto) 0.9 10^3/uL (0.8-4.8) 12/18/23 21:59 [place] # (Auto) 0.4 10^3/uL (0.2-0.9) 12/18/23 21:59 Eos # (Auto) 0.4 10^3/uL (0.0-0.8) 12/18/23 21:59 Baso # (Auto) 0.0 10^3/uL (0.0-0.1) 12/18/23 21:59 Nucleated RBC % (auto) 0 % 12/18/23 21:59 Nucleated RBCs # 0.0 /100WBC 12/18/23 21:59 Sodium 139 mmol/L (136-145) 12/18/23 21:59 Potassium 3.6 mmol/L (3.5-5.1) 12/18/23 21:59 Chloride 107 mmol/L (98-107) 12/18/23 21:59 Carbon Dioxide 22 mmol/L (22-29) 12/18/23 21:59 Anion Gap 13.6 (5-19) 12/18/23 21:59 BUN 13 mg/dL (8-23) 12/18/23 21:59 Creatinine 0.7 mg/dL (0.5-0.9) 12/18/23 21:59 GFR Calculation Not Reportable 12/18/23 21:59 Glucose 92 mg/dL (65-115) 12/18/23 21:59 Calculated Osmolality 288 mOsm/kg (285-295) 12/18/23 21:59 Calcium 9.1 mg/dL (8.5-10.5) 12/18/23 21:59 Total Bilirubin 1.0 mg/dL (0.15-1.2) 12/18/23 21:59 AST 23 U/L (0-32) 12/18/23 21:59 ALT 11 U/L (0-33) 12/18/23 21:59 Alkaline Phosphatase 88 U/L (35-105) 12/18/23 21:59 Total Protein 6.2 g/dL (6.6-8.7) L 12/18/23 21:59 Albumin 3.5 g/dL (3.5-5.2) 12/18/23 21:59 Globulin 2.7 g/dL (1.3-4.6) 12/18/23 21:59 Lipase 55 U/L (13-60) 12/18/23 21:59 Urine Color Yellow (Yellow) 12/18/23 23:37 Urine Appearance Clear (CLEAR) 12/18/23 23:37 Urine pH 6 (5-7) 12/18/23 23:37 Ur Specific [place] 1.025 (1.005-1.030) 12/18/23 23:37 Urine Protein Neg (Negative) 12/18/23 23:37 Urine Glucose (UA) Norm (Normal) 12/18/23 23:37 Urine Ketones Negative (Negative) 12/18/23 23:37 Urine Blood Neg (Negative) 12/18/23 23:37 Urine Nitrate Negative (Negative) 12/18/23 23:37 Urine Bilirubin Neg (Negative) 12/18/23 23:37 Urine Urobilinogen Norm mg/dL (Negative) 12/18/23 23:37 Ur Leukocyte Esterase Negative (Negative) 12/18/23 23:37 All radiology interpretation(s) finalized by discharge Discharge Plan Discharge Patient Disposition: Home Clinical Impression: Thrombocytopenia Diarrhea Qualifiers: Diarrhea type: unspecified type Qualified Code(s): R19.7 - Diarrhea, unspecified Condition: Stable Prescriptions: No Action isosorbide mononitrate 30 mg tablet extended release 24 hr 15 mg PO QAM Qty: 30 3RF Xanax 0.5 mg tablet 0.5 mg PO BID PRN (Reason: anxiety) 30 Days Qty: 30 2RF lisinopril 20 mg tablet 20 mg PO DAILY Qty: 30 5RF potassium gluconate 595 mg (99 mg) tablet 595 mg PO DAILY Qty: 30 5RF sertraline [Zoloft] 50 mg tablet 50 mg PO QAM Qty: 30 5RF omeprazole 40 mg Capsule,Delayed Release(Dr/Ec) 40 mg PO QAM albuterol sulfate 90 mcg/actuation Hfa Aerosol Inhaler 2 puff INHALATION QID PRN (Reason: Shortness Of Breath) cholecalciferol (vitamin D3) [Vitamin D3] 125 mcg (5,000 unit) Tablet 10,000 unit PO DAILY quetiapine 25 mg Tablet 25 mg PO BEDTIME Qty: 60 2RF memantine-donepezil 7-10 mg capsule,sprinkle,ER 24hr 1 cap PO DAILY Qty: 60 4RF Discharge Orders: Discharge ED (Routine); Ordered 12/18/23 Ordered By: Jimi Gu Referrals: Tim Medina MD [Primary Care Provider] - 1 week Patient Instructions: Acute Diarrhea (ED), Loperamide (By mouth) (Imodium A-D, Imotil, Anti-Diarrheal, Diamode), Nutrition Tips for Relief of Diarrhea (ED), Thrombocytopenia (ED) Activity Restrictions/Additional Instructions: Your workup in ER did not reveal any acute cause of your diarrhea most your lab work was totally normal, your platelets were slightly lower than they normally are which are normally slightly low. Please continue the Imodium and increase fiber and follow-up with your family proximal physician within next 7 to 10 days for recheck and evaluation. Coding Level of Care Code ED Cooker Cleaner for Carol Garner
[2023-12-18 23:41] LABS: Add Urine Microscopic? NO; Charge for UA Resulting for Rev
[2023-12-18 23:48] LABS: Bilirubin Urine Neg (Negative); Blood Urine Neg (Negative); Glucose Urine UA Norm (Normal); Ketones Urine Negative (Negative); Leukocyte Esterase Urine Negative (Negative); Nitrate Urine Negative (Negative); Protein Urine Neg (Negative); Specific Gravity, Urine 1.025 (1.005-1.030); Urine Appearance Clear (CLEAR); Urine Color Yellow (Yellow); Urobilinogen Urine Norm (Negative); pH Urine 6 (5-7)
[2023-12-19 00:12] VITALS: BP 168/71; PULSE 69; RESP 16; O2SAT 97
== END 2023-12-19 00:13 | disposition home or self-care (01) ==
PROVIDERS: Emergency Medicine; Emergency Provider Emergency Medicine; PCP Family Medicine Adult Medicine
DX: D69.6 Thrombocytopenia, unspecified (principal); R19.7 Diarrhea, unspecified; Z72.0 Tobacco use; I10 Essential (primary) hypertension; F03.90 Unspecified dementia, unspecified severity, without behavioral disturbance, psychotic disturbance, mood disturbance, and anxiety
CPT/HCPCS: 36415; 80053; 81003; 83690; 85025; 99283

== ENCOUNTER 2024-01-21 11:01 | Emergency (ER) | payer MEDICARE, MEDICAID, SELFPAY ==
[2024-01-21] VITALS (8 sets, daily range): BP systolic 153–190; BP diastolic 81–116; PULSE 66–87; RESP 14–18; TEMP 36.6; O2SAT 96–97; BMI 15.0
--- NOTE | 2024-01-21 11:18 | W.ED.NAVMDI ---
HPI - Nausea/Vomiting/Diarrhea General: Chief complaint: Nausea/Vomiting/Diarrhea Stated complaint: diarrhea x1 week Time Seen by Provider: 01/21/24 11:06 Source: patient and EMS Mode of arrival: EMS Limitations: altered mental status History of Present Illness: 73-year-old female here with EMS patient has a history of dementia per EMS patient's been having nausea along with diarrhea and some increased weakness for the last 5 to 6 days. Patient states she has had large amounts of diarrhea she denies any pain denies any fever she is alert to self which is her baseline she is quite confused she does have dementia Related Data Home Medications Medication Instructions Recorded Confirmed albuterol sulfate 90 mcg/actuation 2 puff inhalation QID PRN 09/06/23 01/21/24 aerosol inhaler Shortness Of Breath cholecalciferol (vitamin D3) 125 10,000 unit PO DAILY 09/06/23 01/21/24 mcg (5,000 unit) tablet (Vitamin D3) omeprazole 40 mg capsule,delayed 40 mg PO QAM PRN Acid Reflux 09/06/23 01/21/24 release magnesium 250 mg tablet 250 mg PO DAILY 01/21/24 01/21/24 quetiapine 25 mg tablet 25 mg PO BEDTIME PRN Sleep 01/21/24 01/21/24 Previous Rx's Medication Instructions Recorded memantine ER 7 mg-donepezil 10 mg 1 cap PO DAILY #60 ea 10/29/23 capsule sprinkle,ext.release 24 hour alprazolam 0.5 mg tablet (Xanax) 0.5 mg PO BID PRN anxiety 30 days 11/14/23 #30 tabs isosorbide mononitrate 30 mg 15 mg (1/2 x 30 mg) PO QAM 11/14/23 tablet,extended release 24 hr circulation #30 tabs lisinopril 20 mg tablet 20 mg PO DAILY blood pressure #30 11/14/23 tabs potassium gluconate 595 mg (99 mg) 595 mg PO DAILY #30 tabs 11/14/23 tablet Allergies Allergy/AdvReac Type Severity Reaction Status Date / Time No Known Allergies Allergy Verified 12/18/23 20:44 [facility] ED PFSH: Medical History Electrolyte abnormality Coronary stent patent Depression Hypertension GERD (gastroesophageal reflux disease) Failure to thrive Altered mental status Dementia Hyperbilirubinemia Hypomagnesemia Hypercalcemia Hypokalemia Family History Father Heart disease Mother Cancer Social History Smoking and tobacco/nicotine status: current every day tobacco/nicotine user Quit status (tobacco/nicotine): not considering quitting Alcohol intake: former Substance/Drug Use: current Substance/Drug use frequency: few times a week Physical Exam Const: COMMON NORMALS: alert; negative for patient oriented x3 ORIENTATION/CONSCIOUSNESS: Yes oriented to person; not oriented to place and not oriented to time HENMT: COMMON NORMALS: normocephalic and atraumatic HEAD & SCALP: normocephalic and atraumatic Neck/C-Spine: COMMON NORMALS: full ROM and supple Chest: COMMONS NORMALS: normal inspection of the chest and normal palpation of entire chest wall Resp: COMMON NORMALS: normal respiratory effort, No retractions, No use of accessory muscles and clear to auscultation bilaterally AUSCULTATION: clear to auscultation bilaterally Cardio: COMMON NORMALS: regular rate, regular rhythm and No murmurs present (Cardio) RATE: regular rate RHYTHM: regular rhythm GI: COMMON NORMALS: Normal to inspection, nondistended, normoactive bowel sounds present, Soft to palpation, non-tender and no masses PALPATION: Yes Soft to palpation Extremity: COMMON NORMALS: normal to inspection and full ROM Neuro: COMMON NORMALS: moves all extremities and no focal motor deficits; negative for patient oriented x3 SENSORIUM/ORIENTATION: Yes alert, Yes oriented to person, No oriented to place and No oriented to time Psych: COMMON NORMALS: cooperative Skin: COMMON NORMALS: no rashes or lesions noted and no wounds GENERAL SKIN EXAM: no rashes or lesions noted Course Vital Signs: Vital signs: Vital Signs Temperature 97.9 F 01/21/24 11:02 Pulse Rate 70 01/21/24 14:00 Respiratory Rate 16 01/21/24 13:30 Blood Pressure 153/93 01/21/24 14:00 Pulse Oximetry 96 01/21/24 14:00 Oxygen Delivery Me thod Room Air 01/21/24 14:00 MDM - Nausea/Vomiting/Diarrhea Medical Decision Making Patient presents here with diarrhea she has been well-appearing here no signs of dehydration blood works normal will discharge with her family she stable for discharge. Medical Records I reviewed the patient's medical records. Lab Data I reviewed the patient's lab results. 01/21/24 12:55 01/21/24 12:55 Laboratory Results WBC 10.63 10^3/uL (3.29-11.43) 01/21/24 12:55 Corrected WBC Cancelled 01/21/24 11:42 RBC 5.15 10^6/uL (3.85-5.65) 01/21/24 12:55 Hgb 14.70 g/dL (11.27-16.99) 01/21/24 12:55 Hct 44.0 % (36-47) 01/21/24 12:55 MCV 85.4 fl (85-98) 01/21/24 12:55 MCH 28.5 pg (27-33) 01/21/24 12:55 MCHC 33.4 g/dL (30-55) 01/21/24 12:55 RDW 15.1 % (12.1-15.1) 01/21/24 12:55 Plt Count 100 10^3/cmm (157-399) L 01/21/24 12:55 MPV 11.3 fL (7.4-10.4) H 01/21/24 12:55 Gran % Cancelled 01/21/24 11:42 Neut % (Auto) 82.9 % 01/21/24 12:55 Lymph % (Auto) 9.7 % 01/21/24 12:55 [place] % (Auto) 5.0 % 01/21/24 12:55 Eos % (Auto) 1.0 % 01/21/24 12:55 Baso % (Auto) 0.8 % 01/21/24 12:55 Neut # (Auto) 8.81 10^3/uL (1.8-7.7) H 01/21/24 12:55 Lymph # (Auto) 1.0 10^3/uL (0.8-4.8) 01/21/24 12:55 [place] # (Auto) 0.5 10^3/uL (0.2-0.9) 01/21/24 12:55 Eos # (Auto) 0.1 10^3/uL (0.0-0.8) 01/21/24 12:55 Baso # (Auto) 0.1 10^3/uL (0.0-0.1) 01/21/24 12:55 Absolute Gran (auto) Cancelled 01/21/24 11:42 Nucleated RBC % (auto) 0 % 01/21/24 12:55 Nucleated RBCs # 0.0 /100WBC 01/21/24 12:55 Sodium 142 mmol/L (136-145) 01/21/24 12:55 Potassium 3.3 mmol/L (3.5-5.1) L 01/21/24 12:55 Chloride 107 mmol/L (98-107) 01/21/24 12:55 Carbon Dioxide 22 mmol/L (22-29) 01/21/24 12:55 Anion Gap 16.3 (5-19) 01/21/24 12:55 BUN 7 mg/dL (8-23) L 01/21/24 12:55 Creatinine 0.5 mg/dL (0.5-0.9) 01/21/24 12:55 GFR Calculation Not Reportable 01/21/24 12:55 Glucose 98 mg/dL (65-115) 01/21/24 12:55 Calculated Osmolality 292 mOsm/kg (285-295) 01/21/24 12:55 Calcium 8.0 mg/dL (8.5-10.5) L 01/21/24 12:55 Total Bilirubin 1.9 mg/dL (0.15-1.2) H 01/21/24 12:55 AST 22 U/L (0-32) 01/21/24 12:55 ALT 6 U/L (0-33) 01/21/24 12:55 Alkaline Phosphatase 80 U/L (35-105) 01/21/24 12:55 Total Protein 6.0 g/dL (6.6-8.7) L 01/21/24 12:55 Albumin 3.2 g/dL (3.5-5.2) L 01/21/24 12:55 Globulin 2.8 g/dL (1.3-4.6) 01/21/24 12:55 Lipase 24 U/L (13-60) 01/21/24 12:55 Urine Color Yellow (Yellow) 01/21/24 13:22 Urine Appearance Slightly cloudy (CLEAR) 01/21/24 13:22 Urine pH 7 (5-7) 01/21/24 13:22 Ur Specific [place] 1.005 (1.005-1.030) 01/21/24 13:22 Urine Protein Neg (Negative) 01/21/24 13:22 Urine Glucose (UA) Norm (Normal) 01/21/24 13:22 Urine Ketones Negative (Negative) 01/21/24 13:22 Urine Blood Neg (Negative) 01/21/24 13:22 Urine Nitrate Negative (Negative) 01/21/24 13:22 Urine Bilirubin Neg (Negative) 01/21/24 13:22 Urine Urobilinogen Norm mg/dL (Negative) 01/21/24 13:22 Ur Leukocyte Esterase Negative (Negative) 01/21/24 13:22 Urine RBC None /hpf (0-2) 01/21/24 13:22 Urine WBC Rare /hpf (0-5) 01/21/24 13:22 Ur Squamous Epith Cells 5-10 /hpf (0-5) H 01/21/24 13:22 Ur Transition Epith Cell 0-4 /hpf 01/21/24 13:22 Amorphous Sediment Not Reportable 01/21/24 13:22 Urine Bacteria None /hpf (NONE) 01/21/24 13:22 Urine Mucus None /hpf 01/21/24 13:22 All radiology interpretation(s) finalized by discharge Discharge Plan Discharge Patient Disposition: Home Clinical Impression: Diarrhea Condition: Stable Prescriptions: No Action isosorbide mononitrate 30 mg tablet extended release 24 hr 15 mg PO QAM Qty: 30 3RF Xanax 0.5 mg tablet 0.5 mg PO BID PRN (Reason: anxiety) 30 Days Qty: 30 2RF lisinopril 20 mg tablet 20 mg PO DAILY Qty: 30 5RF potassium gluconate 595 mg (99 mg) tablet 595 mg PO DAILY Qty: 30 5RF omeprazole 40 mg Capsule,Delayed Release(Dr/Ec) 40 mg PO QAM PRN (Reason: Acid Reflux) albuterol sulfate 90 mcg/actuation Hfa Aerosol Inhaler 2 puff INHALATION QID PRN (Reason: Shortness Of Breath) cholecalciferol (vitamin D3) [Vitamin D3] 125 mcg (5,000 unit) Tablet 10,000 unit PO DAILY memantine-donepezil 7-10 mg capsule,sprinkle,ER 24hr 1 cap PO DAILY Qty: 60 4RF magnesium 250 mg Tablet 250 mg PO DAILY quetiapine 25 mg tablet 25 mg PO BEDTIME PRN (Reason: Sleep) Discharge Orders: Discharge ED (Routine); Ordered 01/21/24 Ordered By: Dwayne Guzman Referrals: Tim Medina MD [Primary Care Provider] - Discharge Diet: Advance as tolerated Discharge Activity: Resume usual activity Patient Instructions: Diarrhea - Adult Coding Level of Care Code ED Certified Veterinary Technician for Carol Garner
--- NOTE | 2024-01-21 11:26 | PC.NURSE ---
did not take any medications today. including lisinopril.
[2024-01-21] MEDS: ondansetron 2 mg/ML SDV 2 mL 4 MG IVP (12:02)
[2024-01-21] MEDS: sodium chloride 0.9% 1,000 ML 999 ML IV (12:02)
--- NOTE | 2024-01-21 12:53 | PC.PHAR ---
Pt unable to verify medications. Son verified meds and stated pt has not taken yet today. Pt also has new med at pharmacy Memantine-donepezil 7-10mg sprinkle er. It will be picked up today.
[2024-01-21 13:06] LABS: Basophils # 0.1 10^3/uL (0.0-0.1); Basophils % 0.8 %; Eosinophils # 0.1 10^3/uL (0.0-0.8); Lymphocytes % 9.7 %; Mean Corpuscular HGB Conc 33.4 g/dL (30-55); Mean Corpuscular Hemoglobin 28.5 pg (27-33); Mean Corpuscular Volume 85.4 fl (85-98); Mean Platelet Volume 11.3 fL (7.4-10.4); Monocytes # 0.5 10^3/uL (0.2-0.9); Neutrophils # 8.81 10^3/uL (1.8-7.7); Neutrophils % 82.9 %; Nucleated Red Blood Cells % 0 %; Platelet Count 100 10^3/cmm (157-399); Red Blood Count 5.15 10^6/uL (3.85-5.65); Red Cell Distribution Width 15.1 % (12.1-15.1); White Blood Count 10.63 10^3/uL (3.29-11.43)
[2024-01-21 13:19] LABS: Alanine Aminotransferase 6 U/L (0-33); Albumin Level 3.2 g/dL (3.5-5.2); Alkaline Phosphatase 80 U/L (35-105); Blood Urea Nitrogen 7 mg/dL (8-23); Carbon Dioxide 22 mmol/L (22-29); Chloride 107 mmol/L (98-107); Creatinine Clr Calc Pharmacy 39.1575; Globulin 2.8 g/dL (1.3-4.6); Glucose 98 mg/dL (65-115); Lipase 24 U/L (13-60); Osmolality Calculated 292 mOsm/kg (285-295); Sodium 142 mmol/L (136-145); Total Bilirubin 1.9 mg/dL (0.15-1.2)
[2024-01-21 13:20] LABS: Anion Gap 16.3 (5-19); Potassium 3.3 mmol/L (3.5-5.1)
[2024-01-21 13:21] LABS: Aspartate Amino Transferase 22 U/L (0-32)
[2024-01-21] MEDS: hyDRALAzine 20 mg/mL INJ 1 mL 10 MG IVP (13:30)
[2024-01-21 13:33] LABS: Charge for UA Resulting for Rev
[2024-01-21 13:43] LABS: Bilirubin Urine Neg (Negative); Blood Urine Neg (Negative); Glucose Urine UA Norm (Normal); Ketones Urine Negative (Negative); Leukocyte Esterase Urine Negative (Negative); Nitrate Urine Negative (Negative); Protein Urine Neg (Negative); Specific Gravity, Urine 1.005 (1.005-1.030); UA Manual Slide Review YES; UA Slide Review UA Slide Review Perf; Urine Appearance Slightly Cloudy (CLEAR); Urine Color Yellow (Yellow); Urobilinogen Urine Norm (Negative); pH Urine 7 (5-7)
[2024-01-21 13:45] LABS: Add Urine Culture? No; Transitional Epi Cells Urine 0-4 /hpf; WBC Urine RARE /hpf (0-5)
--- NOTE | 2024-01-21 14:22 | PC.NURSE ---
stool sample collected and in lab.
--- NOTE | 2024-01-21 15:18 | CT_ITS ---
WS: [id number] CT HEAD NONCONTRAST HISTORY: confusion TECHNIQUE: Contiguous axial imaging performed through the brain in 2.5 mm imaging. Bone and soft tiss ue windows. Sagittal and coronal reformats reviewed. All CT scans at [facility] use at least one of these dose optimization techniques: automated exposure control; mA and/or kV adjustment per pa tient size (includes targeted exams where dose is matched to clinical indication); or iterative recon struction. DLP: 1061.18 mGy.cm COMPARISON: 10/26/2023 Moderate motion artifact. No acute intracranial hemorrhage, midline shift or mass effect. Moderate atrophy and mild small vessel ischemic disease. No infarct. Ventricles: Normal size with no hydrocephalus. No inferior displacement of the cerebellar tonsils. Paranasal sinuses: Small air-fluid level in the RIGHT maxillary sinus. Mastoid air cells: Well pneumatized. Calvarium and scalp: Skull is intact with no soft tissue edema or swelling. CT/CT head wo con* [id number] IMPRESSION: 1. Study is limited by motion artifact. 2. Moderate atrophy and mild small vessel ischemic disease. 3. No hemorrhage identified. Small areas of hemorrhage would be obscured by th e amount of motion.
[2024-01-21 20:02] LABS: C.Diff PCR (Lab) POSITIVE (Negative)
[2024-01-21 20:03] LABS: Clostridioides Difficile Toxin POSITIVE (Negative)
== END 2024-01-21 16:13 | disposition home or self-care (01) ==
PROVIDERS: Emergency Provider Emergency Medicine; PCP Family Medicine Adult Medicine
DX: R19.7 Diarrhea, unspecified (principal); Z72.0 Tobacco use; I10 Essential (primary) hypertension; F03.90 Unspecified dementia, unspecified severity, without behavioral disturbance, psychotic disturbance, mood disturbance, and anxiety
CPT/HCPCS: 36415; 70450; 80053; 81003; 81015; 82274; 83630; 83690; 85025; 87045; 87177; 87209; 87324; 87427; 87449; 87493; 96361; 96374; 96375; 99285; J0360; J2405; J7030

== ENCOUNTER 2024-02-17 19:00 | Inpatient (IN) | payer MEDICARE, MEDICAID, SELFPAY ==
[2024-02-17] VITALS (7 sets, daily range): BP systolic 155–194; BP diastolic 74–97; PULSE 67–73; RESP 14–16; TEMP 37.2; O2SAT 92–97; BMI 16.8
--- NOTE | 2024-02-17 19:06 | XRR_ITS ---
PROCEDURE INFORMATION: Exam: XR Abdomen Exam date and time: 02/17/2024 7:13 PM Age: 73 years old Clinical indication: Nausea and vomiting; Additional info: N/v TECHNIQUE: Imaging protocol: Radiologic exam of the abdomen. Views: Frontal supine view of the abdomen. 1 View. COMPARISON: CT chest abdpel w/*[id number] 10/25/2023 11:45 PM FINDINGS: Gastrointestinal tract: Normal. No bowel dilation. Vasculature: Scattered vascular calcifications. Bones/joints: Unremarkable. XR/XR KUB portable [id number] IMPRESSION: 1. Negative for bowel dilation to indicate obstruction. 2. Scattered vascular calcifications.
--- NOTE | 2024-02-17 19:20 | W.ED.NAVMDI ---
HPI - Nausea/Vomiting/Diarrhea General: Chief complaint: Nausea/Vomiting/Diarrhea Stated complaint: v/d Time Seen by Provider: 02/17/24 19:03 History of Present Illness: 73-year-old female brought in by EMS. Patient has been having some confusion the last couple days and refusing to eat or drink. Patient has had some nausea and vomiting. She was recently treated for C. difficile however she has had formed stool over the last couple days. No reports of fever or chills. Associated nausea: Yes Associated symtoms: Reports nausea; Denies chest pain or dysuria Related Data Home Medications Medication Instructions Recorded Confirmed albuterol sulfate 90 mcg/actuation 2 puff inhalation QID PRN 09/06/23 01/21/24 aerosol inhaler Shortness Of Breath cholecalciferol (vitamin D3) 125 10,000 unit PO DAILY 09/06/23 01/21/24 mcg (5,000 unit) tablet (Vitamin D3) omeprazole 40 mg capsule,delayed 40 mg PO QAM PRN Acid Reflux 09/06/23 01/21/24 release magnesium 250 mg tablet 250 mg PO DAILY 01/21/24 01/21/24 quetiapine 25 mg tablet 25 mg PO BEDTIME PRN Sleep 01/21/24 01/21/24 Previous Rx's Medication Instructions Recorded memantine ER 7 mg-donepezil 10 mg 1 cap PO DAILY #60 ea 10/29/23 capsule sprinkle,ext.release 24 hour isosorbide mononitrate 30 mg 15 mg (1/2 x 30 mg) PO QAM 11/14/23 tablet,extended release 24 hr circulation #30 tabs lisinopril 20 mg tablet 20 mg PO DAILY blood pressure #30 11/14/23 tabs potassium gluconate 595 mg (99 mg) 595 mg PO DAILY #30 tabs 11/14/23 tablet alprazolam 0.5 mg tablet (Xanax) 0.5 mg PO BID PRN anxiety 30 days 02/10/24 #30 tabs Allergies Allergy/AdvReac Type Severity Reaction Status Date / Time No Known Allergies Allergy Verified 02/17/24 19:08 Review of Systems Const: Reports: change in appetite; Denies: fever(s) or chills Card: Denies: chest pain Resp: Denies: dyspnea or productive cough GI: Reports: abdominal pain, nausea and vomiting : Denies: dysuria Skin/Breast: Denies: rash Neuro: Reports: confusion PFSH ED PFSH: Medical History Electrolyte abnormality Coronary stent patent Depression Hypertension GERD (gastroesophageal reflux disease) Failure to thrive Altered mental status Dementia Hyperbilirubinemia Hypomagnesemia Hypercalcemia Hypokalemia Family History Father Heart disease Mother Cancer Social History Smoking and tobacco/nicotine status: current every day tobacco/nicotine user Quit status (tobacco/nicotine): not considering quitting Alcohol intake: former Substance/Drug Use: current Substance/Drug use frequency: few times a week Physical Exam Const: GENERAL APPEARANCE: frail appearing NUTRITIONAL APPEARANCE: underweight Resp: COMMON NORMALS: normal respiratory effort and No use of accessory muscles Cardio: COMMON NORMALS: regular rhythm RATE: tachycardic RHYTHM: regular rhythm GI: PALPATION: Yes Tenderness to palpation present (GI) (Mild diffuse) Neuro: OTHER: Mild confusion but answers most questions appropriately with no acute neurologic deficit noted Psych: THOUGHT PROCESS: confused (Mild but answers most questions appropriate) Course Vital Signs: Vital signs: Vital Signs Temperature 98.9 F 02/17/24 19:01 Pulse Rate 67 02/17/24 20:33 Respiratory Rate 16 02/17/24 20:33 Blood Pressure 155/74 02/17/24 20:33 Pulse Oximetry 92 02/17/24 20:33 Oxygen Delivery Tn thod Room Air 02/17/24 19:01 MDM - Nausea/Vomiting/Diarrhea Medical Decision Making Patient diagnostic studies were ordered reviewed and interpreted by me. She does have slight decrease in her potassium levels provide IV potassium. Patient does not show elevated white count. Based on her history of inability keeping down with nausea vomiting I did obtain a CT scan that shows gastroenterocolitis. There was some gallbladder wall thickening she does not have any right upper quadrant pain but she does have dementia so I did obtain an ultrasound of her right upper quadrant. She was admitted to Dr. Delatorre with ultrasound results pending. Patient was stable upon admission to the floor and appears to be doing much better when I go to visit with her. Lab Data 02/17/24 19:40 02/17/24 19:40 Radiology Impressions KUB X-Ray 02/17/24 19:06 IMPRESSION: 1. Negative for bowel dilation to indicate obstruction. 2. Scattered vascular calcifications. Abdomen/Pelvis CT 02/17/24 20:32 IMPRESSION: 1. Gastric wall thickening along with small bowel and colonic wall thickening, please correlate for a gastroenterocolitis. 2. Emphysematous changes. 3. Cirrhotic liver. 4. Gallbladder wall thickening and cholelithiasis, ultrasound could further evaluate this for possible cholecystitis as clinically indicated. 5. Spleen enlarged to 13 cm. 6. Proximal superior mesenteric artery and right renal artery atherosclerotic disease with 50-60% luminal narrowing. 7. Left proximal renal artery atherosclerotic disease with 80-90% luminal narrowing suspected. Gallbladder Ultrasound 02/17/24 21:53 IMPRESSION: 1. Cholelithiasis with mild dilation of the common bile duct without obstructing lesion, findings are not convincing for cholecystitis by ultrasound alone, consider further evaluation with a nuclear medicine HIDA scan. 2. Cirrhotic liver suspected. Laboratory Results WBC 4.99 10^3/uL (3.29-11.43) 02/17/24 19:40 RBC 4.69 10^6/uL (3.85-5.65) 02/17/24 19:40 Hgb 13.90 g/dL (11.27-16.99) 02/17/24 19:40 Hct 40.9 % (36-47) 02/17/24 19:40 MCV 87.2 fl (85-98) 02/17/24 19:40 MCH 29.6 pg (27-33) 02/17/24 19:40 MCHC 34.0 g/dL (30-55) 02/17/24 19:40 RDW 16.9 % (12.1-15.1) H 02/17/24 19:40 Plt Count 66 10^3/cmm (157-399) L 02/17/24 19:40 MPV 12.9 fL (7.4-10.4) H 02/17/24 19:40 Neut % (Auto) 54.1 % 02/17/24 19:40 Lymph % (Auto) 26.3 % 02/17/24 19:40 Benzie % (Auto) 13.0 % 02/17/24 19:40 Eos % (Auto) 5.6 % 02/17/24 19:40 Baso % (Auto) 0.6 % 02/17/24 19:40 Neut # (Auto) 2.70 10^3/uL (1.8-7.7) 02/17/24 19:40 Lymph # (Auto) 1.3 10^3/uL (0.8-4.8) 02/17/24 19:40 Benzie # (Auto) 0.7 10^3/uL (0.2-0.9) 02/17/24 19:40 Eos # (Auto) 0.3 10^3/uL (0.0-0.8) 02/17/24 19:40 Baso # (Auto) 0.0 10^3/uL (0.0-0.1) 02/17/24 19:40 Nucleated RBC % (auto) 0 % 02/17/24 19:40 Nucleated RBCs # 0.0 /100WBC 02/17/24 19:40 Sodium 140 mmol/L (136-145) 02/17/24 19:40 Potassium 2.9 mmol/L (3.5-5.1) L 02/17/24 19:40 Chloride 102 mmol/L (98-107) 02/17/24 19:40 Carbon Dioxide 29 mmol/L (22-29) 02/17/24 19:40 Anion Gap 11.9 (5-19) 02/17/24 19:40 BUN 14 mg/dL (8-23) 02/17/24 19:40 Creatinine 0.7 mg/dL (0.5-0.9) 02/17/24 19:40 GFR Calculation Not Reportable 02/17/24 19:40 Glucose 97 mg/dL (65-115) 02/17/24 19:40 POC Glucose 77 mg/dL (70-110) 02/17/24 20:39 Calculated Osmolality 290 mOsm/kg (285-295) 02/17/24 19:40 Lactic Acid 3.1 mmol/L (0.5-2.2) H 02/17/24 19:40 Calcium 8.8 mg/dL (8.5-10.5) 02/17/24 19:40 Magnesium 1.4 mg/dL (1.7-2.3) L 02/17/24 19:40 Total Bilirubin 1.4 mg/dL (0.15-1.2) H 02/17/24 19:40 AST 22 U/L (0-32) 02/17/24 19:40 ALT 17 U/L (0-33) 02/17/24 19:40 Alkaline Phosphatase 67 U/L (35-105) 02/17/24 19:40 Total Protein 5.2 g/dL (6.6-8.7) L 02/17/24 19:40 Albumin 2.9 g/dL (3.5-5.2) L 02/17/24 19:40 Globulin 2.3 g/dL (1.3-4.6) 02/17/24 19:40 Coronavirus (PCR) Negative (Negative) 02/17/24 19:40 Influenza A (PCR) Negative (Negative) 02/17/24 19:40 Influenza Type B (PCR) Negative (Negative) 02/17/24 19:40 RSV (PCR) Negative (Negative) 02/17/24 19:40 All radiology interpretation(s) finalized by discharge Discharge Plan Discharge Patient Disposition: Placed in Observation Clinical Impression: Dementia, Gastroenteritis, Hypokalemia Coding Level of Care Code ED Cardiac Monitor Technician for Carol Garner
[2024-02-17 19:48] LABS: Basophils % 0.6 %; Eosinophils # 0.3 10^3/uL (0.0-0.8); Eosinophils % 5.6 %; Hematocrit 40.9 % (36-47); Lymphocytes # 1.3 10^3/uL (0.8-4.8); Lymphocytes % 26.3 %; Mean Corpuscular Hemoglobin 29.6 pg (27-33); Mean Corpuscular Volume 87.2 fl (85-98); Mean Platelet Volume 12.9 fL (7.4-10.4); Monocytes # 0.7 10^3/uL (0.2-0.9); Neutrophils % 54.1 %; Nucleated Red Blood Cells % 0 %; Platelet Count 66 10^3/cmm (157-399); Red Blood Count 4.69 10^6/uL (3.85-5.65); Red Cell Distribution Width 16.9 % (12.1-15.1); White Blood Count 4.99 10^3/uL (3.29-11.43)
[2024-02-17] MEDS: sodium chloride 0.9% 1,000 ML 500 ML IV (20:01)
[2024-02-17] MEDS: ondansetron 2 mg/ML SDV 2 mL 4 MG IVP (20:01)
[2024-02-17 20:20] LABS: Alanine Aminotransferase 17 U/L (0-33); Albumin Level 2.9 g/dL (3.5-5.2); Alkaline Phosphatase 67 U/L (35-105); Anion Gap 11.9 (5-19); Aspartate Amino Transferase 22 U/L (0-32); Blood Urea Nitrogen 14 mg/dL (8-23); Calcium 8.8 mg/dL (8.5-10.5); Carbon Dioxide 29 mmol/L (22-29); Chloride 102 mmol/L (98-107); Creatinine Clr Calc Pharmacy 43.9439; Globulin 2.3 g/dL (1.3-4.6); Glucose 97 mg/dL (65-115); Lactic Sepsis W/Reflex 3.1 mmol/L (0.5-2.2); Osmolality Calculated 290 mOsm/kg (285-295); Slide Review Slide Review Perform; Sodium 140 mmol/L (136-145); Total Bilirubin 1.4 mg/dL (0.15-1.2); Total Protein 5.2 g/dL (6.6-8.7)
[2024-02-17 20:31] LABS: Potassium 2.9 mmol/L (3.5-5.1)
[2024-02-17 20:32] LABS: Covid PCR NEGATIVE (Negative); Influenza A NEGATIVE (Negative); Influenza B NEGATIVE (Negative); Respiratory Syncytial Virus Ce NEGATIVE (Negative)
--- NOTE | 2024-02-17 20:32 | CTR_ITS ---
PROCEDURE INFORMATION: Exam: CT Abdomen And Pelvis With Contrast Exam date and time: 02/17/2024 9:10 PM Age: 73 years old Clinical indication: Abdominal pain; Additional info: Abd pain, n/v TECHNIQUE: Imaging protocol: Computed tomography of the abdomen and pelvis with contrast. Radiation optimization: All CT scans at this facility use at least one of these dose optimization techniques: automated exposure control; mA and/or kV adjustment per patient size (includes targeted exams where dose is matched to clinical indication); or iterative reconstruction. Contrast material: OMNI 350; Contrast volume: 100 ml; Contrast route: INTRAVENOUS (IV); COMPARISON: CT chest abdpel w/*[id number] 10/25/2023 11:45 PM RADIATION DOSE METRICS: Total DLP (mGy-cm): 345 FINDINGS: Lungs: Emphysematous changes. Liver: Cirrhotic liver. Gallbladder and biliary ducts: Gallbladder wall thickening and cholelithiasis, ultrasound could further evaluate this for possible cholecystitis as clinically indicated. Pancreas: Normal. No ductal dilation. Spleen: Spleen enlarged to 13 cm. Adrenal glands: Normal. No mass. Kidneys and ureters: Normal. No hydronephrosis. Stomach and bowel: Gastric wall thickening along with small bowel and colonic wall thickening, please correlate for a gastroenterocolitis. Appendix: No evidence of appendicitis. Intraperitoneal space: Unremarkable. No free air. No significant fluid collection. Vasculature: Proximal superior mesenteric artery and right renal artery atherosclerotic disease with 50-60% luminal narrowing. Left proximal renal artery atherosclerotic disease with 80-90% luminal narrowing suspected. Lymph nodes: Unremarkable. No enlarged lymph nodes. Urinary bladder: Unremarkable as visualized. Reproductive: Unremarkable as visualized. Bones/joints: Unremarkable. No acute fracture. Soft tissues: Unremarkable. CT/CT abdomen pelvis w con* [id number] IMPRESSION: 1. Gastric wall thickening along with small bowel and colonic wall thickening, please correlate for a gastroenterocolitis. 2. Emphysematous changes. 3. Cirrhotic liver. 4. Gallbladder wall thickening and cholelithiasis, ultrasound could further evaluate this for possible cholecystitis as clinically indicated. 5. Spleen enlarged to 13 cm. 6. Proximal superior mesenteric artery and right renal artery atherosclerotic disease with 50-60% luminal narrowing. 7. Left proximal renal artery atherosclerotic disease with 80-90% luminal narrowing suspected.
[2024-02-17 20:42] LABS: Glucose Point of Care 77 mg/dL (70-110)
[2024-02-17 21:04] LABS: Magnesium 1.4 mg/dL (1.7-2.3)
[2024-02-17] MEDS: iohexol 350 mg/mL 500 mL Btl (per mL) IV (21:12)
[2024-02-17] MEDS: lidocaine 1% 5 ML in potassium chloride premix 100 ML 52.5 ML IV (21:26)
[2024-02-17 21:32] LABS: Reflex Lactate Order REFLEX LACTIC ORDERD
--- NOTE | 2024-02-17 21:53 | USR_ITS ---
PROCEDURE INFORMATION: Exam: US Abdomen, Limited; Right Upper Quadrant Exam date and time: 02/17/2024 10:12 PM Age: 73 years old Clinical indication: Abdominal tenderness and nausea and vomiting; Additional info: N/v/ abdnormal CT TECHNIQUE: Imaging protocol: Real time ultrasound of the abdomen with image documentation. Limited exam focused on the right upper quadrant. COMPARISON: CT abdomen pelvis w con* [id number] 02/17/2024 9:10 PM FINDINGS: Liver: Cirrhotic liver suspected. Gallbladder: Minimal cholelithiasis suspected. Biliary ducts: Common bile duct dilated to 8 mm without obstructing lesion, MRCP could further evaluate this. Pancreas: Visualized pancreas is unremarkable. Right kidney: Normal. No mass. No hydronephrosis. US/US gall bladder [id number] IMPRESSION: 1. Cholelithiasis with mild dilation of the common bile duct without obstructing lesion, findings are not convincing for cholecystitis by ultrasound alone, consider further evaluation with a nuclear medicine HIDA scan. 2. Cirrhotic liver suspected.
[2024-02-17 22:48] LABS: Add Urine Microscopic? NO
[2024-02-17 22:58] LABS: Bilirubin Urine Neg (Negative); Blood Urine Neg (Negative); Glucose Urine UA Norm (Normal); Ketones Urine Negative (Negative); Leukocyte Esterase Urine Negative (Negative); Nitrate Urine Negative (Negative); Protein Urine Neg (Negative); Specific Gravity, Urine 1.005 (1.005-1.030); Urine Appearance Clear (CLEAR); Urine Color Yellow (Yellow); Urobilinogen Urine Norm (Negative); pH Urine 7 (5-7)
[2024-02-17 23:02] LABS: Charge for UA Resulting for Rev
[2024-02-17 23:09] LABS: C Reactive Protein 44.8 mg/L (0.0-4.9); Lipase 23 U/L (13-60)
[2024-02-17 23:16] LABS: Procalcitonin 0.19 ng/mL (0-0.5)
[2024-02-17 23:29] LABS: Hepatitis A Antibody IgM Non-Reactive (Nonreactive); Hepatitis B Core IgM Non-Reactive (Nonreactive); Hepatitis B Surface Antigen Non-Reactive (Nonreactive); Hepatitis C Virus Antibody Reactive (Nonreactive)
[2024-02-17] MEDS: ketorolac 30 mg/mL INJ 15 MG IVP (23:30)
--- NOTE | 2024-02-17 23:30 | P.HP_ITS ---
Providers/Chief Complaint 2 Primary Care Provider: Tim Medina MD Chief Complaint: v/d History of Present Illness Sandra Gamboa is a 73 year old female with a past medical history of dementia, failure to thrive, hypertension, GERD, who presents [facility] due to recurrent nausea, vomiting, diarrhea, dehydration. Currently patient alert to person, not to place, not to time no significant history was provided by patient due to underlying dementia, son is at bedside, who helps in the history taking. Patient's son tells me that patient has had a 3-week history of recurrent diarrhea, nausea, vomiting. He tells me that her diarrhea is quite flatulent, she has diarrhea every 2 hours, with poor appetite, nausea, vomiting, diarrhea. She had presented to the emergency room January 21, 2024 for diarrhea, was sent home, but family was called on 01/22/2024, was told that she had C. difficile and she was placed on p.o. Flagyl. Son tells me that she has completed her Flagyl, but continues to have diarrhea. Son denies patient ever receiving p.o. vancomycin or fidoxamicin. He tells me her appetite has decreased, recurrent nausea, vomiting, persistent diarrhea. Review of Systems 2 General: Reports: ROS unobtainable due to mental status Medications/Allergies Home Medications Medication Instructions Recorded Confirmed Last Taken Type albuterol sulfate 90 mcg/actuation 2 puff inhalation QID PRN 09/06/23 01/21/24 Unknown History aerosol inhaler Shortness Of Breath cholecalciferol (vitamin D3) 125 10,000 unit PO DAILY 09/06/23 01/21/24 01/20/24 History mcg (5,000 unit) tablet (Vitamin D3) omeprazole 40 mg capsule,delayed 40 mg PO QAM PRN Acid Reflux 09/06/23 01/21/24 Unknown History release memantine ER 7 mg-donepezil 10 mg 1 cap PO DAILY #60 ea 10/29/23 01/21/24 Unknown Rx capsule sprinkle,ext.release 24 hour isosorbide mononitrate 30 mg 15 mg (1/2 x 30 mg) PO QAM 11/14/23 01/21/24 01/20/24 Rx tablet,extended release 24 hr circulation #30 tabs lisinopril 20 mg tablet 20 mg PO DAILY blood pressure #30 11/14/23 01/21/24 01/20/24 Rx tabs potassium gluconate 595 mg (99 mg) 595 mg PO DAILY #30 tabs 11/14/23 01/21/24 01/20/24 Rx tablet magnesium 250 mg tablet 250 mg PO DAILY 01/21/24 01/21/24 01/20/24 History quetiapine 25 mg tablet 25 mg PO BEDTIME PRN Sleep 01/21/24 01/21/24 Unknown History alprazolam 0.5 mg tablet (Xanax) 0.5 mg PO BID PRN anxiety 30 days 02/10/24 Unknown Rx #30 tabs Allergies Allergy/AdvReac Type Severity Reaction Status Date / Time No Known Allergies Allergy Verified 02/17/24 19:08 PFSH Acute 2 PFSH: Medical History (Updated 02/17/24 @ 23:37 by Jerrell Delatorre MD) Hypomagnesemia Electrolyte abnormality Coronary stent patent Depression Hypertension GERD (gastroesophageal reflux disease) Failure to thrive Altered mental status Dementia Hyperbilirubinemia Hypercalcemia Hypokalemia Family History Father Heart disease Mother Cancer Social History Smoking and tobacco/nicotine status: current every day tobacco/nicotine user Quit status (tobacco/nicotine): not considering quitting Alcohol intake: former Substance/Drug Use: current Substance/Drug use frequency: few times a week Vitals/I&O/Wt Last Vital Signs Temp 98.9 F 02/17/24 19:01 Pulse 67 02/17/24 20:33 Resp 16 02/17/24 20:33 BP 155/74 02/17/24 20:33 Pulse Ox 92 02/17/24 20:33 O2 Del Method Room Air 02/17/24 19:01 Weight last 48 hrs Weight 45.813 kg Physical Exam 2 Const: COMMON NORMALS: no acute distress EXAM LIMITATIONS: altered mental status ORIENTATION/CONSCIOUSNESS: Yes awake, Yes oriented to person and Yes confused; not oriented to place and not oriented to time HENMT: COMMON NORMALS: normocephalic HEAD & SCALP: normocephalic Eye: COMMON NORMALS: Equal, round and reactive pupils present Neck/C-Spine: COMMON NORMALS: no JVD Resp: COMMON NORMALS: normal respiratory effort, No retractions, No use of accessory muscles and clear to auscultation bilaterally AUSCULTATION: clear to auscultation bilaterally Cardio: COMMON NORMALS: no JVD, regular rate, regular rhythm, S1 normal heart sound present and S2 normal heart sound present RATE: regular rate RHYTHM: regular rhythm HEART SOUNDS: S1 normal heart sound present and S2 normal heart sound present GI: OTHER: Abdomen is soft, distended, no guarding, no rebound, rigidity, no significant tenderness, no right upper quadrant tenderness, hyperactive bowel sounds Extremity: COMMON NORMALS: no pedal edema Neuro: OTHER: Does not follow commands, does not provide any history, does not follow commands Data 02/17/24 19:40 02/17/24 19:40 A&P Assessment and plan (1) C. difficile colitis: (2) Dehydration: (3) Hypokalemia: (4) Hypomagnesemia: (5) Elevated lactic acid level: Plan C. difficile colitis -Tested positive for C. difficile 01/22/2024 ? Has not been treated with fidaxomicin or p.o. vancomycin ? With dehydration, hypokalemia, hypomagnesium Terri ? Recurrent diarrhea, nausea vomiting ? Will treat for moderate to severe C. difficile colitis CT/CT abdomen pelvis w con* [id number] IMPRESSION: 1. Gastric wall thickening along with small bowel and colonic wall thickening, please correlate for a gastroenterocolitis. 2. Emphysematous changes. 3. Cirrhotic liver. 4. Gallbladder wall thickening and cholelithiasis, ultrasound could further evaluate this for possible cholecystitis as clinically indicated. 5. Spleen enlarged to 13 cm. 6. Proximal superior mesenteric artery and right renal artery atherosclerotic disease with 50-60% luminal narrowing. 7. Left proximal renal artery atherosclerotic disease with 80-90% luminal narrowing suspected. US/US gall bladder [id number] IMPRESSION: 1. Cholelithiasis with mild dilation of the common bile duct without obstructing lesion, findings are not convincing for cholecystitis by ultrasound alone, consider further evaluation with a nuclear medicine HIDA scan. 2. Cirrhotic liver suspected ? Plan ? Start p.o. vancomycin -Start IV Flagyl ? IV fluids ? Replace potassium, replace magnesium -Elevated lactic acid, monitor -Will start on dysphagia level 4 diet, aspiration precautions speech therapy eval -SCDs for DVT prophylaxis, Lovenox relatively contraindicated given thrombocytopenia -Full code, as per son at bedside Attestations 2 Medical Necessity Statement*: Patient requires hospitalization for recurrent diarrhea, C. difficile colitis, dehydration, hypokalemia, hypomagnesemia, inpatient, greater than 2 midnights Diagnoses C. difficile colitis A04.72 Dehydration E86.0 Hypokalemia E87.6 Hypomagnesemia E83.42 Elevated lactic acid level R79.89
[2024-02-17 23:37] LABS: HIV 1 & 2 Antibody Non-Reactive (Non-Reactiv); HIV 1 & 2 Antigen Non-Reactive (Non-Reactiv)
[2024-02-17 23:43] LABS: INR 1.32 (0.8-1.2)
[2024-02-17 23:49] LABS: Lactic Acid level (Lactate) 2.8 mmol/L (0.5-2.2)
[2024-02-18] VITALS (9 sets, daily range): BP systolic 108–167; BP diastolic 62–77; PULSE 56–67; RESP 16–17; TEMP 36.5–37.1; O2SAT 92–96; BMI 16.8
[2024-02-18] MEDS: sodium chloride 0.9% 1,000 ML 125 ML IV ×2 (00:10→12:46)
[2024-02-18] MEDS: vancomycin 125 mg Capsule PO ×5 (00:37→20:52)
[2024-02-18] MEDS: magnesium sulfate premix 1 GM/100 ML PIGGYBACK IV (00:38)
[2024-02-18 01:15] LABS: Estmated Average Glucose 80; Hemoglobin A1C 4.4 % (4.0-6.0)
[2024-02-18 01:27] LABS: Thyroid Stimulating Hormone 3.31 uIU/mL (0.27-4.20)
[2024-02-18 01:29] LABS: C.Diff PCR (Lab) POSITIVE (Negative)
[2024-02-18] MEDS: metroNIDAZOLE IV 500 MG/100 ML PREMIX 100 MG IV ×3 (02:05→17:53)
[2024-02-18 02:26] LABS: Clostridioides Difficile Toxin POSITIVE (Negative)
[2024-02-18 02:28] LABS: Gamma Glutamyl Transferase 22 U/L (5-36)
[2024-02-18 05:42] LABS: Basophils # 0.1 10^3/uL (0.0-0.1); Basophils % 1.2 %; Eosinophils # 0.3 10^3/uL (0.0-0.8); Eosinophils % 7.4 %; Hematocrit 36.3 % (36-47); Mean Corpuscular HGB Conc 33.1 g/dL (30-55); Mean Corpuscular Hemoglobin 29.1 pg (27-33); Mean Corpuscular Volume 88.1 fl (85-98); Mean Platelet Volume 12.4 fL (7.4-10.4); Monocytes # 0.6 10^3/uL (0.2-0.9); Monocytes % 14.5 %; Neutrophils # 2.11 10^3/uL (1.8-7.7); Neutrophils % 51.7 %; Nucleated Red Blood Cells % 0 %; Platelet Count 58 10^3/cmm (157-399); Red Blood Count 4.12 10^6/uL (3.85-5.65); Red Cell Distribution Width 16.8 % (12.1-15.1); White Blood Count 4.08 10^3/uL (3.29-11.43)
[2024-02-18] MEDS: pantoprazole 40 mg SDV IVP (05:52)
[2024-02-18 06:05] LABS: Lactic Sepsis W/Reflex 1.8 mmol/L (0.5-2.2)
[2024-02-18 06:06] LABS: Alanine Aminotransferase 13 U/L (0-33); Albumin Level 2.3 g/dL (3.5-5.2); Alkaline Phosphatase 57 U/L (35-105); Anion Gap 11.1 (5-19); Aspartate Amino Transferase 21 U/L (0-32); Blood Urea Nitrogen 13 mg/dL (8-23); Calcium 7.7 mg/dL (8.5-10.5); Carbon Dioxide 26 mmol/L (22-29); Chloride 107 mmol/L (98-107); Creatinine Clr Calc Pharmacy 42.7257; Globulin 2.1 g/dL (1.3-4.6); Glucose 93 mg/dL (65-115); Magnesium 1.7 mg/dL (1.7-2.3); Osmolality Calculated 292 mOsm/kg (285-295); Phosphorus 2.5 mg/dL (2.5-4.5); Potassium 3.1 mmol/L (3.5-5.1); Sodium 141 mmol/L (136-145); Total Bilirubin 1.1 mg/dL (0.15-1.2); Total Protein 4.4 g/dL (6.6-8.7)
[2024-02-18 06:15] LABS: Slide Review Slide Review Perform
--- NOTE | 2024-02-18 09:34 | PC.CHAP ---
Pastoral Care Encounter/Spiritual Assessment Type of Contact [] Declined reclamation kettle tender visit [] Patient/Family/Request visit [] Outpatient visit [] Follow-up visit [] Physician referral [] Code/Alert [] Routine visit [] Staff referral [] Actively dying [] Patient sleeping [] Family support [] [] Out of room [] Palliative care [] [] Receiving care in room [] Pre-surgical visit [] Trauma [] Long length of stay [] ICU visit [x] Other:Contact precautions. No visit. Relational/Emotional Strength [] Patient feels connected with others/family/visitors/staff [] Distress [] Loneliness/isolation [] Abandonment Spirituality of Patient [] Person of Jina [] Attends Sabianism of their Jina [] Believes in Prayer [] Reads Bible or Church materials [] There are Spiritual issues to be addressed Press Technician Interventions [] Prayer [] Active listening [] Non-anxious presence [] Spiritual/emotional support [] Crisis/trauma care [] Spiritual counseling [] Bereavement support [] Provided bereavement packet [] Provided Bible/devotional materials [] Provided toy/stuffed animal, coloring book to patient or family member [] Provided Communion [] Anointing/[place] [] Salvation [] Completed spiritual assessment [] Other: Impact on Illness or Injury [] Angry [] Fearful [] Anxious [] Often cries [] Exhaustion [] Unable to work [] Unable to attend caodaism [] Unable to walk/stand [] Unable to read [] Unable to drive [] Unable to eat/drink [] Unable to sleep [] Unable to be with family [] Patient intubated [] Other: Summary Time spent with patient
[2024-02-18] MEDS: acetaminophen 325 mg Tablet 650 MG PO (11:28)
[2024-02-18 13:07] LABS: Iron 31 ug/dL (37-145); Percent Saturation 30.3 % (20-50); Total Iron Binding Capacity 102 mcg/dl; Unsaturated Iron Binding 71 ug/dL (112-347)
[2024-02-18 13:19] LABS: Procalcitonin 0.16 ng/mL (0-0.5); Vitamin B12 1276 pg/mL (232-1245)
--- NOTE | 2024-02-18 16:42 | P.PN_ITS ---
Subjective 2 Subjective: Admitted overnight. H&P and labs appreciated. Patient denies any nausea, vomiting, abdominal pain. Less diarrhea as per nursing staff. Remains on room air. Vitals/I&O/Wt Last Vital Signs Temp 98.4 F 02/18/24 16:00 Pulse 63 02/18/24 16:00 Resp 16 02/18/24 16:00 BP 128/62 02/18/24 16:00 Pulse Ox 92 02/18/24 16:00 O2 Del Method Room Air 02/18/24 16:00 02/18/24 02/18/24 02/18/24 06:59 14:59 22:59 Intake Total 1305 / 1305 1340 / 1340 Balance 1305 / 1305 1340 / 1340 Weight last 48 hrs Weight 44.543 kg Weight 45.813 kg Physical Exam 2 Const: COMMON NORMALS: no acute distress EXAM LIMITATIONS: altered mental status ORIENTATION/CONSCIOUSNESS: Yes awake, Yes oriented to person and Yes confused; not oriented to place and not oriented to time HENMT: COMMON NORMALS: normocephalic HEAD & SCALP: normocephalic Eye: COMMON NORMALS: Equal, round and reactive pupils present PUPIL: Yes Equal, round and reactive pupils present Neck/C-Spine: COMMON NORMALS: no JVD Resp: COMMON NORMALS: normal respiratory effort, No retractions, No use of accessory muscles and clear to auscultation bilaterally AUSCULTATION: clear to auscultation bilaterally Cardio: COMMON NORMALS: no JVD, regular rate, regular rhythm, S1 normal heart sound present and S2 normal heart sound present RATE: regular rate RHYTHM: regular rhythm HEART SOUNDS: S1 normal heart sound present and S2 normal heart sound present GI: OTHER: Abdomen is soft, distended, no guarding, no rebound, rigidity, no significant tenderness, no right upper quadrant tenderness, hyperactive bowel sounds Extremity: COMMON NORMALS: no pedal edema Neuro: SENSORIUM/ORIENTATION: Yes oriented to person, No oriented to place and No oriented to time OTHER: Does not follow commands, does not provide any history, does not follow commands Data 02/18/24 05:15 02/18/24 05:15 Micro: Microbiology 02/18/24 00:50 Blood Culture - Preliminary Blood SPECIMEN COLLECTED 02/18/24 00:47 Blood Culture - Preliminary Blood SPECIMEN COLLECTED 02/18/24 00:00 Stool Lactoferrin - Final Stool Occult Blood (FIT) - Final A&P Assessment and plan (1) C. difficile colitis: (2) Dehydration: (3) Hypokalemia: (4) Hypomagnesemia: (5) Elevated lactic acid level: Plan C. difficile colitis: Initially positive on 01/21. Not treated. Again positive on 02/16. For now continue with IV Flagyl Q8 hourly and p.o. vancomycin. If diarrhea improves can stop Flagyl in next 24 hours and continue vancomycin for overall 14 days more. Monitor for bowel movements. Contact precautions. Normal saline at 50 cc/h. Advance diet as per speech evaluation. Hypokalemia: Replace with 80 mg of oral potassium. Continue with the other chronic medications including Seroquel as needed. Switch from combination of memantine and donepezil to separate memantine and donepezil. Full code Lovenox for DVT prophylaxis Protonix for PUD prophylaxis Attestations 2 Medical Necessity Statement*: Requires further hospitalization for management of C. difficile colitis, hypokalemia in an elderly with history of advanced dementia Diagnoses C. difficile colitis A04.72 Dehydration E86.0 Hypokalemia E87.6 Hypomagnesemia E83.42 Elevated lactic acid level R79.89
[2024-02-18] MEDS: memantine 5 mg tablet PO (17:53)
[2024-02-18] MEDS: donepezil 5 MG Tablet 10 MG PO (20:52)
[2024-02-19] VITALS (8 sets, daily range): BP systolic 116–149; BP diastolic 58–73; PULSE 57–72; RESP 16–17; TEMP 36.4–36.9; O2SAT 93–97
[2024-02-19] MEDS: metroNIDAZOLE IV 500 MG/100 ML PREMIX 100 MG IV ×3 (01:12→17:33)
[2024-02-19] MEDS: acetaminophen 325 mg Tablet 650 MG PO ×3 (01:15→23:03)
[2024-02-19] MEDS: pantoprazole 40 mg SDV IVP (05:17)
[2024-02-19 06:25] LABS: Basophils # 0.1 10^3/uL (0.0-0.1); Basophils % 1.3 %; Eosinophils # 0.4 10^3/uL (0.0-0.8); Eosinophils % 10.5 %; Hematocrit 35.9 % (36-47); Lymphocytes # 1.1 10^3/uL (0.8-4.8); Lymphocytes % 27.9 %; Mean Corpuscular HGB Conc 32.6 g/dL (30-55); Mean Corpuscular Hemoglobin 28.6 pg (27-33); Mean Corpuscular Volume 87.8 fl (85-98); Monocytes # 0.6 10^3/uL (0.2-0.9); Monocytes % 15.1 %; Neutrophils # 1.72 10^3/uL (1.8-7.7); Neutrophils % 44.2 %; Nucleated Red Blood Cells % 0 %; Platelet Count 65 10^3/cmm (157-399); Red Blood Count 4.09 10^6/uL (3.85-5.65); Red Cell Distribution Width 16.9 % (12.1-15.1)
[2024-02-19 06:48] LABS: Alanine Aminotransferase 11 U/L (0-33); Albumin Level 2.3 g/dL (3.5-5.2); Alkaline Phosphatase 56 U/L (35-105); Aspartate Amino Transferase 17 U/L (0-32); Blood Urea Nitrogen 13 mg/dL (8-23); Calcium 7.9 mg/dL (8.5-10.5); Carbon Dioxide 23 mmol/L (22-29); Chloride 106 mmol/L (98-107); Creatinine Clr Calc Pharmacy 50.2767; Globulin 2.1 g/dL (1.3-4.6); Glucose 90 mg/dL (65-115); Osmolality Calculated 286 mOsm/kg (285-295); Sodium 138 mmol/L (136-145); Total Bilirubin 1.2 mg/dL (0.15-1.2); Total Protein 4.4 g/dL (6.6-8.7)
[2024-02-19 06:49] LABS: Magnesium 1.6 mg/dL (1.7-2.3)
[2024-02-19 06:50] LABS: Anion Gap 11.9 (5-19); Potassium 2.9 mmol/L (3.5-5.1)
[2024-02-19 07:09] LABS: Folate Level 4.1 ng/mL (4.8-37.3)
[2024-02-19 07:21] LABS: Slide Review Slide Review Perform
[2024-02-19] MEDS: potassium chloride ER 20 mEq Tablet 120 MEQ PO (08:49)
[2024-02-19] MEDS: memantine 5 mg tablet PO ×2 (08:49→17:33)
[2024-02-19] MEDS: vancomycin 125 mg Capsule PO ×4 (08:52→20:07)
[2024-02-19] MEDS: magnesium sulfate premix 2 GM/50 ML PIGGYBACK IV (11:42)
[2024-02-19] MEDS: sodium chloride 0.9% 1,000 ML 50 ML IV (14:04)
--- NOTE | 2024-02-19 15:13 | P.PN_ITS ---
Subjective 2 Subjective: No acute events overnight. Seen with son at bedside. Patient is more awake and alert. Less diarrheal bowel movements. Appetite appropriate. Hemodynamically stable and afebrile. Vitals/I&O/Wt Last Vital Signs Temp 97.8 F 02/19/24 11:22 Pulse 62 02/19/24 11:22 Resp 17 02/19/24 11:22 BP 126/67 02/19/24 11:22 Pulse Ox 97 02/19/24 11:22 O2 Del Method Room Air 02/19/24 11:22 02/19/24 02/19/24 02/19/24 06:59 14:59 22:59 Intake Total 320.833 / 2660.000 630 / 630 Balance 320.833 / 2660.000 630 / 630 Weight last 48 hrs Weight 48.988 kg Weight 44.543 kg Weight 45.813 kg Physical Exam 2 Const: COMMON NORMALS: no acute distress EXAM LIMITATIONS: altered mental status ORIENTATION/CONSCIOUSNESS: Yes awake, Yes oriented to person and Yes confused; not oriented to place and not oriented to time HENMT: COMMON NORMALS: normocephalic HEAD & SCALP: normocephalic Eye: COMMON NORMALS: Equal, round and reactive pupils present PUPIL: Yes Equal, round and reactive pupils present Neck/C-Spine: COMMON NORMALS: no JVD Resp: COMMON NORMALS: normal respiratory effort, No retractions, No use of accessory muscles and clear to auscultation bilaterally AUSCULTATION: clear to auscultation bilaterally Cardio: COMMON NORMALS: no JVD, regular rate, regular rhythm, S1 normal heart sound present and S2 normal heart sound present RATE: regular rate RHYTHM: regular rhythm HEART SOUNDS: S1 normal heart sound present and S2 normal heart sound present GI: OTHER: Abdomen is soft, distended, no guarding, no rebound, rigidity, no significant tenderness, no right upper quadrant tenderness, hyperactive bowel sounds Extremity: COMMON NORMALS: no pedal edema Neuro: SENSORIUM/ORIENTATION: Yes oriented to person, No oriented to place and No oriented to time OTHER: Does not follow commands, does not provide any history, does not follow commands Data 02/19/24 05:40 02/19/24 05:40 Micro: Microbiology 02/18/24 00:50 Blood Culture - Preliminary Blood NEGATIVE TO DATE 02/18/24 00:47 Blood Culture - Preliminary Blood NEGATIVE TO DATE A&P Assessment and plan (1) C. difficile colitis: (2) Dehydration: (3) Hypokalemia: (4) Hypomagnesemia: (5) Elevated lactic acid level: Plan C. difficile colitis: Initially positive on 01/21. Not treated. Again positive on 02/16. For now continue with IV Flagyl Q8 hourly and p.o. vancomycin. If diarrhea improves can stop Flagyl in next 24 hours and continue vancomycin for overall 14 days more. Monitor for bowel movements. Contact precautions. Normal saline at 50 cc/h. Advance diet as per speech evaluation. Hypokalemia: Replace with 80 mg of oral potassium. Continue with the other chronic medications including Seroquel as needed. Switch from combination of memantine and donepezil to separate memantine and donepezil. Plan for the day: Continue with IV fluids. Continue with oral vancomycin. Replace 120 mg of oral potassium and 2 g of IV magnesium. Repeat BMP and magnesium level in AM. Discharge plan: Plan to discharge in next 24 hours if patient remains hemodynamically stable on oral vancomycin for overall 14-day course. Full code Lovenox for DVT prophylaxis Protonix for PUD prophylaxis Attestations 2 Medical Necessity Statement*: Requires further hospitalization for management of C. difficile colitis, severe hypokalemia and hypomagnesemia Diagnoses C. difficile colitis A04.72 Dehydration E86.0 Hypokalemia E87.6 Hypomagnesemia E83.42 Elevated lactic acid level R79.89
[2024-02-19 15:34] LABS: HEP C RNA Viral Load Quant <1.18 NOT DETECTED Log IU/mL (NOT DETECTED); HEP C RNA Viral Load Quant <15 NOT DETECTED IU/mL (NOT DETECTED)
[2024-02-19] MEDS: donepezil 5 MG Tablet 10 MG PO (20:07)
[2024-02-19] MEDS: quetiapine 25 mg Tablet PO (23:24)
[2024-02-20] VITALS (7 sets, daily range): BP systolic 113–137; BP diastolic 60–75; PULSE 57–71; RESP 16–17; TEMP 36.3–36.6; O2SAT 94–97
[2024-02-20] MEDS: metroNIDAZOLE IV 500 MG/100 ML PREMIX 100 MG IV ×2 (01:26→08:52)
[2024-02-20 05:27] LABS: Magnesium 1.8 mg/dL (1.7-2.3)
[2024-02-20] MEDS: pantoprazole 40 mg SDV IVP (05:32)
[2024-02-20] MEDS: vancomycin 125 mg Capsule PO ×2 (08:52→12:42)
[2024-02-20] MEDS: memantine 5 mg tablet PO (08:52)
[2024-02-20 09:33] LABS: Blood Urea Nitrogen 11 mg/dL (8-23); Calcium 7.9 mg/dL (8.5-10.5); Carbon Dioxide 19 mmol/L (22-29); Chloride 111 mmol/L (98-107); Creatinine Clr Calc Pharmacy 51.0491; Glucose 126 mg/dL (65-115); Osmolality Calculated 291 mOsm/kg (285-295); Sodium 140 mmol/L (136-145)
[2024-02-20 09:34] LABS: Anion Gap 13.6 (5-19); Potassium 3.6 mmol/L (3.5-5.1)
--- NOTE | 2024-02-20 10:51 | P.DS_ITS ---
Discharge Providers Date of Admission: 02/18/24 00:07 Date of Discharge: February 20, 2024 Attending Provider at Admission: Jerrell Delatorre MD Attending Provider at Discharge: Bran Trimble MD Primary Care Provider: Tim Medina MD Diagnoses at Discharge Discharge Diagnosis (1) C. difficile colitis: Status: Acute (2) Dehydration: Status: Inactive (3) Hypokalemia: Status: Acute (4) Hypomagnesemia: Status: Acute (5) Elevated lactic acid level: Status: Acute Reason for Visit Reason for Visit: v/d Brief History: History as per HPI: Sandra Gamboa is a 73 year old female with a past medical history of dementia, failure to thrive, hypertension, GERD, who presents [facility] due to recurrent nausea, vomiting, diarrhea, dehydration. Currently patient alert to person, not to place, not to time no significant history was provided by patient due to underlying dementia, son is at bedside, who helps in the history taking. Patient's son tells me that patient has had a 3-week history of recurrent diarrhea, nausea, vomiting. He tells me that her diarrhea is quite flatulent, she has diarrhea every 2 hours, with poor appetite, nausea, vomiting, diarrhea. She had presented to the emergency room January 21, 2024 for diarrhea, was sent home, but family was called on 01/22/2024, was told that she had C. difficile and she was placed on p.o. Flagyl. Son tells me that she has completed her Flagyl, but continues to have diarrhea. Son denies patient ever receiving p.o. vancom ycin or fidoxamicin. He tells me her appetite has decreased, recurrent nausea, vomiting, persistent diarrhea. Hospital Course Hospital Course Patient was admitted to the hospital further evaluation and management of dehydration and hypokalemia in setting of extensive acute diarrhea because of C. difficile. She was started on IV hydration and received multiple repletion of oral potassium. She was started on oral vancomycin after which her diarrhea frequency have decreased. Patient is back to her baseline hydration. She is discharged in hemodynamically stable condition on oral vancomycin 4 times a day for next 14 days. Her diet was changed as per speech evaluation to level for dysphagia and extremely thickened fluids. During hospitalization she was found to be normotensive off her antihypertensive. She is advised to hold off on antihypertensive for now and check her blood pressure daily at home and maintain a blood pressure diary for next 2 weeks with advised to follow-up with a primary care provider for further adjustment of antihypertensives as an outpatient. Her goal blood pressure is less than 140/90 mmHg. Discharge note discussed in detail with son at bedside and all the questions were answered. Physical Exam Const: COMMON NORMALS: no acute distress EXAM LIMITATIONS: altered mental status ORIENTATION/CONSCIOUSNESS: Yes awake, Yes oriented to person and Yes confused; not oriented to place and not oriented to time HENMT: COMMON NORMALS: normocephalic HEAD & SCALP: normocephalic Eye: COMMON NORMALS: Equal, round and reactive pupils present PUPIL: Yes Equal, round and reactive pupils present Neck/C-Spine: COMMON NORMALS: no JVD Resp: COMMON NORMALS: normal respiratory effort, No retractions, No use of accessory muscles and clear to auscultation bilaterally AUSCULTATION: clear to auscultation bilaterally Cardio: COMMON NORMALS: no JVD, regular rate, regular rhythm, S1 normal heart sound present and S2 normal heart sound present RATE: regular rate RHYTHM: regular rhythm HEART SOUNDS: S1 normal heart sound present and S2 normal heart sound present GI: OTHER: Who Extremity: COMMON NORMALS: no pedal edema Neuro: SENSORIUM/ORIENTATION: Yes oriented to person, No oriented to place and No oriented to time OTHER: Does not follow commands, does not provide any history, does not follow commands Discharge Data Studies Completed and Pending Completed Studies During Hospitalization Category Date Time Status CT abdomen pelvis w con* [id number] Stat Cat Scan 02/17/24 20:32 Completed XR KUB portable [id number] Stat Exams 02/17/24 19:06 Completed US gall bladder [id number] Stat Ultrasound 02/17/24 21:53 Completed Pending at discharge Category Date Time Status Blood Culture Routine Lab 02/18/24 00:50 Results MAG [Magnesium] AM LABS Lab 02/21/24 04:00 Ordered OVA and Parasites, Conc and PE Routine Lab 02/18/24 00:00 Received Salmonella / Shigella / Campy Routine Lab 02/18/24 00:00 Received Radiology Impressions KUB X-Ray 02/17/24 19:06 IMPRESSION: 1. Negative for bowel dilation to indicate obstruction. 2. Scattered vascular calcifications. Abdomen/Pelvis CT 02/17/24 20:32 IMPRESSION: 1. Gastric wall thickening along with small bowel and colonic wall thickening, please correlate for a gastroenterocolitis. 2. Emphysematous changes. 3. Cirrhotic liver. 4. Gallbladder wall thickening and cholelithiasis, ultrasound could further evaluate this for possible cholecystitis as clinically indicated. 5. Spleen enlarged to 13 cm. 6. Proximal superior mesenteric artery and right renal artery atherosclerotic disease with 50-60% luminal narrowing. 7. Left proximal renal artery atherosclerotic disease with 80-90% luminal narrowing suspected. Gallbladder Ultrasound 02/17/24 21:53 IMPRESSION: 1. Cholelithiasis with mild dilation of the common bile duct without obstructing lesion, findings are not convincing for cholecystitis by ultrasound alone, consider further evaluation with a nuclear medicine HIDA scan. 2. Cirrhotic liver suspected. Laboratory Results WBC 3.90 10^3/uL (3.29-11.43) 02/19/24 05:40 RBC 4.09 10^6/uL (3.85-5.65) 02/19/24 05:40 Hgb 11.70 g/dL (11.27-16.99) 02/19/24 05:40 Hct 35.9 % (36-47) L 02/19/24 05:40 MCV 87.8 fl (85-98) 02/19/24 05:40 MCH 28.6 pg (27-33) 02/19/24 05:40 MCHC 32.6 g/dL (30-55) 02/19/24 05:40 RDW 16.9 % (12.1-15.1) H 02/19/24 05:40 Plt Count 65 10^3/cmm (157-399) L 02/19/24 05:40 MPV 13.0 fL (7.4-10.4) H 02/19/24 05:40 Neut % (Auto) 44.2 % 02/19/24 05:40 Lymph % (Auto) 27.9 % 02/19/24 05:40 [place] % (Auto) 15.1 % 02/19/24 05:40 Eos % (Auto) 10.5 % 02/19/24 05:40 Baso % (Auto) 1.3 % 02/19/24 05:40 Neut # (Auto) 1.72 10^3/uL (1.8-7.7) L 02/19/24 05:40 Lymph # (Auto) 1.1 10^3/uL (0.8-4.8) 02/19/24 05:40 [place] # (Auto) 0.6 10^3/uL (0.2-0.9) 02/19/24 05:40 Eos # (Auto) 0.4 10^3/uL (0.0-0.8) 02/19/24 05:40 Baso # (Auto) 0.1 10^3/uL (0.0-0.1) 02/19/24 05:40 Nucleated RBC % (auto) 0 % 02/19/24 05:40 Nucleated RBCs # 0.0 /100WBC 02/19/24 05:40 PT 16.80 SECONDS (12.1-14.9) H 02/17/24 19:40 INR 1.32 (0.8-1.2) H 02/17/24 19:40 Sodium 140 mmol/L (136-145) 02/20/24 04:37 Potassium 3.6 mmol/L (3.5-5.1) 02/20/24 04:37 Chloride 111 mmol/L (98-107) H 02/20/24 04:37 Carbon Dioxide 19 mmol/L (22-29) L 02/20/24 04:37 Anion Gap 13.6 (5-19) 02/20/24 04:37 BUN 11 mg/dL (8-23) 02/20/24 04:37 Creatinine 0.6 mg/dL (0.5-0.9) 02/20/24 04:37 GFR Calculation Not Reportable 02/20/24 04:37 Glucose 126 mg/dL (65-115) H 02/20/24 04:37 POC Glucose 77 mg/dL (70-110) 02/17/24 20:39 Estimat Average Glucose 80 02/18/24 00:50 Hemoglobin A1c 4.4 % (4.0-6.0) 02/18/24 00:50 Calculated Osmolality 291 mOsm/kg (285-295) 02/20/24 04:37 Lactic Acid 1.8 mmol/L (0.5-2.2) 02/18/24 05:15 Lactic Acid (Sepsis) 2.8 mmol/L (0.5-2.2) H 02/17/24 23:15 Calcium 7.9 mg/dL (8.5-10.5) L 02/20/24 04:37 Phosphorus 2.5 mg/dL (2.5-4.5) 02/18/24 05:15 Magnesium 1.8 mg/dL (1.7-2.3) 02/20/24 04:37 Iron 31 ug/dL (37-145) L 02/18/24 05:15 TIBC 102 mcg/dl 02/18/24 05:15 % Saturation 30.3 % (20-50) 02/18/24 05:15 Unsat Iron Binding 71 ug/dL (112-347) L 02/18/24 05:15 Total Bilirubin 1.2 mg/dL (0.15-1.2) 02/19/24 05:40 GGT 22 U/L (5-36) 02/17/24 19:40 AST 17 U/L (0-32) 02/19/24 05:40 ALT 11 U/L (0-33) 02/19/24 05:40 Alkaline Phosphatase 56 U/L (35-105) 02/19/24 05:40 C-Reactive Protein 44.8 mg/L (0.0-4.9) H 02/17/24 19:40 Total Protein 4.4 g/dL (6.6-8.7) L 02/19/24 05:40 Albumin 2.3 g/dL (3.5-5.2) L 02/19/24 05:40 Globulin 2.1 g/dL (1.3-4.6) 02/19/24 05:40 Lipase 23 U/L (13-60) 02/17/24 19:40 Vitamin B12 1276 pg/mL (232-1245) H 02/18/24 05:15 Folate 4.1 ng/mL (4.8-37.3) L 02/19/24 05:40 Procalcitonin 0.16 ng/mL (0-0.5) 02/18/24 05:15 TSH 3.31 uIU/mL (0.27-4.20) 02/18/24 00:50 Urine Color Yellow (Yellow) 02/17/24 22:41 Urine Appearance Clear (CLEAR) 02/17/24 22:41 Urine pH 7 (5-7) 02/17/24 22:41 Ur Specific [place] 1.005 (1.005-1.030) 02/17/24 22:41 Urine Protein Neg (Negative) 02/17/24 22:41 Urine Glucose (UA) Norm (Normal) 02/17/24 22:41 Urine Ketones Negative (Negative) 02/17/24 22:41 Urine Blood Neg (Negative) 02/17/24 22:41 Urine Nitrate Negative (Negative) 02/17/24 22:41 Urine Bilirubin Neg (Negative) 02/17/24 22:41 Urine Urobilinogen Norm mg/dL (Negative) 02/17/24 22:41 Ur Leukocyte Esterase Negative (Negative) 02/17/24 22:41 Amorphous Sediment Not Reportable 02/17/24 22:41 C. difficile (PCR) Positive (Negative) H 02/18/24 00:00 C.difficile Tox Confrm Positive (Negative) H 02/18/24 00:00 Coronavirus (PCR) Negative (Negative) 02/17/24 19:40 Hepatitis A IgM Ab Non-reactive (Nonreactive) 02/17/24 19:40 Hep Bs Antigen Non-reactive (Nonreactive) 02/17/24 19:40 Hep B Core IgM Ab Non-reactive (Nonreactive) 02/17/24 19:40 Hepatitis C Antibody Reactive (Nonreactive) H 02/17/24 19:40 HCV RNA (PCR) IUs/ml <1.18 not detected Log IU/mL (NOT DETECTED) 02/18/24 00:01 HCV RNA (PCR) IU log10 <15 not detected IU/mL (NOT DETECTED) 02/18/24 00:01 HIV 1&2 Ab & HIV 1 Ag Non-reactive (Non-Reactiv) 02/17/24 19:40 HIV 1&2 Antibody Non-reactive (Non-Reactiv) 02/17/24 19:40 Influenza A (PCR) Negative (Negative) 02/17/24 19:40 Influenza Type B (PCR) Negative (Negative) 02/17/24 19:40 RSV (PCR) Negative (Negative) 02/17/24 19:40 Vitals Last Vital Signs Temp 97.6 F 02/20/24 07:52 Pulse 64 02/20/24 07:52 Resp 17 02/20/24 07:52 BP 137/75 02/20/24 07:52 Pulse Ox 97 02/20/24 07:52 O2 Del Method Room Air 02/20/24 07:52 Discharge Plan Discharge Patient Disposition: Home Condition: Stable Prescriptions: New vancomycin 125 mg capsule 125 mg PO QID 14 Days Qty: 56 0RF Continued potassium gluconate 595 mg (99 mg) tablet 595 mg PO DAILY Qty: 30 5RF Xanax 0.5 mg tablet 0.5 mg PO BID PRN (Reason: anxiety) 30 Days Qty: 30 2RF omeprazole 40 mg Capsule,Delayed Release(Dr/Ec) 40 mg PO QAM PRN (Reason: Acid Reflux) albuterol sulfate 90 mcg/actuation Hfa Aerosol Inhaler 2 puff INHALATION QID PRN (Reason: Shortness Of Breath) cholecalciferol (vitamin D3) [Vitamin D3] 125 mcg (5,000 unit) Tablet 10,000 unit PO DAILY memantine-donepezil 7-10 mg capsule,sprinkle,ER 24hr 1 cap PO DAILY Qty: 60 4RF magnesium 250 mg Tablet 250 mg PO DAILY quetiapine 25 mg tablet 25 mg PO BEDTIME PRN (Reason: Sleep) Held lisinopril 20 mg tablet 20 mg PO DAILY Qty: 30 5RF Hold Instructions: Resume on 03/05/24. Discontinued isosorbide mononitrate 30 mg tablet extended release 24 hr 15 mg PO QAM Qty: 30 3RF Discharge Orders: Discharge Order (Routine); Ordered 02/20/24 Ordered By: Bran Trimble Referrals: Tim Medina MD [Primary Care Provider] - 2 weeks (We have notified your physician's clinic of the need for a follow-up appointment to be scheduled. If you have not heard from them within the next 2 business days, please call them directly. ) Discharge Diet: As Directed Discharge Activity: Resume usual activity and Increase activity as tolerated Patient Instructions: Clostridium Difficile, Vancomycin (By mouth), Gastroenteritis (DC), Opioid Safety Activity Restrictions/Additional Instructions: Take vancomycin 4 times a day for next 14 days. Do not take isosorbide anymore. Hold lisinopril for next 2 weeks. Check your blood pressure daily at home maintain a blood pressure diary. Goal blood pressure is less than 140/90 mmHg. If the blood pressure start going over 140/90 mmHg you can start your lisinopril again. Dysphagia level 4 diet Discharge Attestations Time Spent in Discharge Care*: greater than 30 min Quality Metrics Clinical Quality Measures [ No reported AMI, CVA or VTE this stay] Coding Level of Care Code 79268 Total time (in minutes) for Discharge: 60 Diagnoses C. difficile colitis A04.72 Dehydration E86.0 Hypokalemia E87.6 Hypomagnesemia E83.42 Elevated lactic acid level R79.89
== END 2024-02-20 13:41 | disposition home health service (06) | DRG 372 ==
LOC: ER 22:38 → MEDSURG 23:36
PROVIDERS: Admitting Provider Family Medicine; Emergency Provider Student in an Organized Health Care Education/Training Program; PCP Family Medicine Adult Medicine; Visit Provider Student in an Organized Health Care Education/Training Program
DX: A04.72 Enterocolitis due to Clostridium difficile, not specified as recurrent (principal); E87.20 Acidosis, unspecified; Z68.1 Body mass index [BMI] 19.9 or less, adult; F03.90 Unspecified dementia, unspecified severity, without behavioral disturbance, psychotic disturbance, mood disturbance, and anxiety; R62.7 Adult failure to thrive; I10 Essential (primary) hypertension; K21.9 Gastro-esophageal reflux disease without esophagitis; E86.0 Dehydration; F32.A Depression, unspecified; F17.210 Nicotine dependence, cigarettes, uncomplicated; E87.6 Hypokalemia; E83.42 Hypomagnesemia; Z79.51 Long term (current) use of inhaled steroids; Z95.5 Presence of coronary angioplasty implant and graft
CPT/HCPCS: 0241U; 36415; 36416; 74018; 74177; 76705; 80048; 80053; 80074; 81003; 82274; 82607; 82746; 82962; 82977; 83036; 83540; 83550; 83605; 83630; 83690; 83735; 84100; 84145; 84443; 85025; 85610; 86140; 87040; 87045; 87177; 87209; 87324; 87427; 87449; 87493; 87522; 87806; 92523; 92526; 92610; 94664; 96365; 96366; 96375; 99285; G0378; J1885; J2405; J2470; J3475; J3480; J3490; J7030

== ENCOUNTER 2024-03-10 12:58 | Inpatient (IN) | payer MEDICARE, MEDICAID, SELFPAY ==
[2024-03-10] VITALS (24 sets, daily range): BP systolic 146–166; BP diastolic 67–88; PULSE 64–93; RESP 10–27; TEMP 36.6–36.7; O2SAT 92–98; BMI 18.8
[2024-03-10 14:33] LABS: Basophils # 0.1 10^3/uL (0.0-0.1); Basophils % 1.1 %; Eosinophils # 0.3 10^3/uL (0.0-0.8); Eosinophils % 5.9 %; Hematocrit 38.3 % (36-47); Lymphocytes # 0.9 10^3/uL (0.8-4.8); Lymphocytes % 20.7 %; Mean Corpuscular HGB Conc 32.4 g/dL (30-55); Mean Corpuscular Volume 92.5 fl (85-98); Mean Platelet Volume 10.8 fL (7.4-10.4); Monocytes # 0.6 10^3/uL (0.2-0.9); Monocytes % 13.4 %; Neutrophils # 2.57 10^3/uL (1.8-7.7); Neutrophils % 58.7 %; Nucleated Red Blood Cells % 0 %; Platelet Count 71 10^3/cmm (157-399); Red Blood Count 4.14 10^6/uL (3.85-5.65); Red Cell Distribution Width 18.9 % (12.1-15.1); White Blood Count 4.39 10^3/uL (3.29-11.43)
[2024-03-10 14:58] LABS: Alanine Aminotransferase 11 U/L (0-33); Albumin Level 2.9 g/dL (3.5-5.2); Alkaline Phosphatase 74 U/L (35-105); Anion Gap 13.4 (5-19); Aspartate Amino Transferase 23 U/L (0-32); Blood Urea Nitrogen 8 mg/dL (8-23); Calcium 8.3 mg/dL (8.5-10.5); Carbon Dioxide 23 mmol/L (22-29); Chloride 104 mmol/L (98-107); Creatinine Clr Calc Pharmacy 50.6247; Globulin 2.5 g/dL (1.3-4.6); Glucose 105 mg/dL (65-115); Osmolality Calculated 283 mOsm/kg (285-295); Potassium 3.4 mmol/L (3.5-5.1); Sodium 137 mmol/L (136-145); Total Bilirubin 2.3 mg/dL (0.15-1.2); Total Protein 5.4 g/dL (6.6-8.7)
--- NOTE | 2024-03-10 16:38 | ED_ITS ---
HPI - Nausea/Vomiting/Diarrhea 2 General: Chief complaint: Nausea/Vomiting/Diarrhea Stated complaint: N/V/D Time Seen by Provider: 03/10/24 16:34 History of Present Illness: 73-year-old female with a history of dep ression, hypertension, GERD, failure to thrive and multiple recent C. difficile infections. She presents again today with copious diarrhea and no appetite and not eating for a couple of days now. Diffuse mild crampy abdominal pain. No focal pain. No new altered mental status. She is extremely weak. Describes a general weakness. Nothing focal. No known fevers. Related Data Home Medications Medication Instructions Recorded Confirmed albuterol sulfate 90 mcg/actuation 2 puff inhalation QID PRN 09/06/23 02/18/24 aerosol inhaler Shortness Of Breath cholecalciferol (vitamin D3) 125 10,000 unit PO DAILY 09/06/23 02/18/24 mcg (5,000 unit) tablet (Vitamin D3) omeprazole 40 mg capsule,delayed 40 mg PO QAM PRN Acid Reflux 09/06/23 02/18/24 release magnesium 250 mg tablet 250 mg PO DAILY 01/21/24 02/18/24 quetiapine 25 mg tablet 25 mg PO BEDTIME PRN Sleep 01/21/24 02/18/24 Previous Rx's Medication Instructions Recorded memantine ER 7 mg-donepezil 10 mg 1 cap PO DAILY #60 ea 10/29/23 capsule sprinkle,ext.release 24 hour lisinopril 20 mg tablet 20 mg PO DAILY blood pressure #30 11/14/23 tabs potassium gluconate 595 mg (99 mg) 595 mg PO DAILY #30 tabs 11/14/23 tablet alprazolam 0.5 mg tablet (Xanax) 0.5 mg PO DAILY PRN anxiety 30 03/02/24 days #30 tabs Allergies Allergy/AdvReac Type Severity Reaction Status Date / Time No Known Allergies Allergy Verified 03/10/24 13:10 Review of Systems 2 Narrative: Constitutional symptoms: Negative except as documented in HPI. Skin symptoms: Negative except as documented in HPI. Eye symptoms: Negative except as documented in HPI. ENMT symptoms: Negative except as documented in HPI. Respiratory symptoms: Negative except as documented in HPI. Cardiovascular symptoms: Negative except as documented in HPI. Gastrointestinal symptoms: Negative except as documented in HPI. Genitourinary symptoms: Negative except as documented in HPI. Musculoskeletal symptoms: Negative except as documented in HPI. Neurologic symptoms: Negative except as documented in HPI. Psychiatric symptoms: Negative except as documented in HPI. Endocrine symptoms: Negative except as documented in HPI. PFSH ED 2 PFSH: Medical History (Updated 03/10/24 @ 18:20 by Amara Sweet MD) Hypomagnesemia Electrolyte abnormality Coronary stent patent Depression Hypertension GERD (gastroesophageal reflux disease) Failure to thrive Altered mental status Dementia Hyperbilirubinemia Hypercalcemia Hypokalemia Surgical History (Updated 03/10/24 @ 17:49 by Jerrell Delatorre MD) History of cardiac cath Family History Father Heart disease Mother Cancer Social History Smoking and tobacco/nicotine status: current every day tobacco/nicotine user Quit status (tobacco/nicotine): not considering quitting Alcohol intake: former Substance/Drug Use: current Substance/Drug use frequency: few times a week Physical Exam 2 Narrative: EXAM NARRATIVE: General: Alert, patient is very thin and cachectic Skin: Warm, dry. Head: Normocephalic, atraumatic. Neck: Supple, trachea midline. Eye: Extraocular movements are intact. Ears, nose, mouth and throat: Dry oral mucosa Cardiovascular: Regular, Normal peripheral perfusion. Respiratory: Lungs are clear to auscultation, respirations are non-labored, breath sounds are equal, Symmetrical chest wall expansion. Gastrointestinal: Soft, mild generalized tenderness, Non distended Musculoskeletal: Normal ROM, no deformity. Neurological: Alert and oriented, No focal neurological deficit observed. Psychiatric: Cooperative, appropriate mood & affect. Course 2 Vital Signs: Vital signs: Vital Signs Temperature 98.1 F 03/10/24 13:02 Pulse Rate 65 03/10/24 17:30 Respiratory Rate 20 H 03/10/24 17:30 Blood Pressure 147/67 03/10/24 17:30 Pulse Oximetry 98 03/10/24 17:30 Oxygen Delivery Me thod Room Air 03/10/24 17:30 MDM - Nausea/Vomiting/Diarrhea Medical Decision Making Medical decision making: Differential diagnosis including but not limited to and based on the above HPI, review of systems and physical exam: Concern for recurrent C. difficile. Dehydration. Renal failure. Orders placed to evaluate differential diagnosis based on the above differential, HPI and physical exam Lab Review: Laboratory results were reviewed and interpreted by myself the emergency room physician. No leukocytosis. No anemia. Platelets are low at 71. Renal function is normal at 8 and 0.7. Potassium is mildly low at 3.4. I reviewed the patient's medical record. Reexamination: Given that the patient describes this as exactly the same as when she had C. difficile in the past feel like treating her as appropriate. She is very weak and dehydrated so going to admit her to the hospitalist. Consultation: I spoke with Dr. Ramos who is on-call for the hospitalist service who agrees to admission. Assessment and plan: Diarrhea Dehydration C. difficile colitis Normal saline bolus in the emergency room. -I discussed the patient with the hospitalist on-call who is admitting the patient. - Discussed findings and plan with patient. Answered any questions. - All laboratory values were reviewed and interpreted personally by myself, the ER physician - All imaging was reviewed and interpreted personally by myself, the ER physician. - Evaluation and treatment of this problem were appropriate in the emergency setting Lab Data 03/10/24 14:18 03/10/24 14:18 Laboratory Results WBC 4.39 10^3/uL (3.29-11.43) 03/10/24 14:18 RBC 4.14 10^6/uL (3.85-5.65) 03/10/24 14:18 Hgb 12.40 g/dL (11.27-16.99) 03/10/24 14:18 Hct 38.3 % (36-47) 03/10/24 14:18 MCV 92.5 fl (85-98) 03/10/24 14:18 MCH 30.0 pg (27-33) 03/10/24 14:18 MCHC 32.4 g/dL (30-55) 03/10/24 14:18 RDW 18.9 % (12.1-15.1) H 03/10/24 14:18 Plt Count 71 10^3/cmm (157-399) L 03/10/24 14:18 MPV 10.8 fL (7.4-10.4) H 03/10/24 14:18 Neut % (Auto) 58.7 % 03/10/24 14:18 Lymph % (Auto) 20.7 % 03/10/24 14:18 [place] % (Auto) 13.4 % 03/10/24 14:18 Eos % (Auto) 5.9 % 03/10/24 14:18 Baso % (Auto) 1.1 % 03/10/24 14:18 Neut # (Auto) 2.57 10^3/uL (1.8-7.7) 03/10/24 14:18 Lymph # (Auto) 0.9 10^3/uL (0.8-4.8) 03/10/24 14:18 [place] # (Auto) 0.6 10^3/uL (0.2-0.9) 03/10/24 14:18 Eos # (Auto) 0.3 10^3/uL (0.0-0.8) 03/10/24 14:18 Baso # (Auto) 0.1 10^3/uL (0.0-0.1) 03/10/24 14:18 Nucleated RBC % (auto) 0 % 03/10/24 14:18 Nucleated RBCs # 0.0 /100WBC 03/10/24 14:18 PT 17.30 SECONDS (12.1-14.9) H 03/10/24 14:18 INR 1.37 (0.8-1.2) H 03/10/24 14:18 Sodium 137 mmol/L (136-145) 03/10/24 14:18 Potassium 3.4 mmol/L (3.5-5.1) L 03/10/24 14:18 Chloride 104 mmol/L (98-107) 03/10/24 14:18 Carbon Dioxide 23 mmol/L (22-29) 03/10/24 14:18 Anion Gap 13.4 (5-19) 03/10/24 14:18 BUN 8 mg/dL (8-23) 03/10/24 14:18 Creatinine 0.7 mg/dL (0.5-0.9) 03/10/24 14:18 GFR Calculation Not Reportable 03/10/24 14:18 Glucose 105 mg/dL (65-115) 03/10/24 14:18 Calculated Osmolality 283 mOsm/kg (285-295) L 03/10/24 14:18 Calcium 8.3 mg/dL (8.5-10.5) L 03/10/24 14:18 Total Bilirubin 2.3 mg/dL (0.15-1.2) H 03/10/24 14:18 AST 23 U/L (0-32) 03/10/24 14:18 ALT 11 U/L (0-33) 03/10/24 14:18 Alkaline Phosphatase 74 U/L (35-105) 03/10/24 14:18 Total Protein 5.4 g/dL (6.6-8.7) L 03/10/24 14:18 Albumin 2.9 g/dL (3.5-5.2) L 03/10/24 14:18 Globulin 2.5 g/dL (1.3-4.6) 03/10/24 14:18 No radiology studies performed this visit Discharge Plan Discharge Patient Disposition: Admitted As Inpatient Clinical Impression: C. difficile colitis, Dehydration, Pedal edema Condition: Stable Coding Level of Care Code ED Literary Writer for Carol Garner
--- NOTE | 2024-03-10 16:39 | XRR_ITS ---
PROCEDURE INFORMATION: Exam: XR Abdomen Exam date and time: 03/10/2024 4:44 PM Age: 73 years old Clinical indication: Abdominal pain TECHNIQUE: Imaging protocol: Radiologic exam of the abdomen. Views: 2 Views. Upright and supine views. COMPARISON: CT abdomen pelvis w con* [id number] 02/17/2024 9:10 PM FINDINGS: Gastrointestinal tract: Normal. No bowel dilation. Normal stool amount. Intraperitoneal space: Normal. No free air. Bones/joints: Unremarkable for age. XR/XR acute abdomen series [id number] IMPRESSION: No acute findings.
[2024-03-10] MEDS: sodium chloride 0.9% 1,000 ML 999 ML IV (17:35)
--- NOTE | 2024-03-10 17:46 | USR_ITS ---
PROCEDURE INFORMATION: Exam: US Duplex Lower Extremity Veins, Bilateral Exam date and time: 03/10/2024 6:19 PM Age: 73 years old Clinical indication: Edema, localized; Lower extremity, bilateral; Patient HX: 2+ pitting edema of bilateral calf areas. No history of dvt per patient. ; Additional info: Bilateral leg swelling TECHNIQUE: Imaging protocol: Real-time duplex ultrasound of the bilateral extremities with 2-D mckinnon scale, color Doppler flow and spectral waveform analysis including responses to compression and other maneuvers (when performed) with image documentation. Complete exam focused on the lower extremity veins. COMPARISON: CT abdomen pelvis w con* [id number] 02/17/2024 9:10 PM FINDINGS: Right deep veins: Unremarkable. The common femoral, femoral, proximal profunda femoral and popliteal veins are patent without thrombus. Normal Doppler waveforms. Normal compressibility and/or augmentation response. Left deep veins: Unremarkable. The common femoral, femoral, proximal profunda femoral and popliteal veins are patent without thrombus. Normal Doppler waveforms. Normal compressibility and/or augmentation response. Superficial veins: Greater saphenous veins at the saphenofemoral junctions are patent bilaterally without thrombus. Soft tissues: Unremarkable. US/[place] [id number] IMPRESSION: No evidence of deep vein thrombosis.
--- NOTE | 2024-03-10 17:46 | CTR_ITS ---
PROCEDURE INFORMATION: Exam: CT Abdomen And Pelvis Without Contrast Exam date and time: 03/10/2024 7:49 PM Age: 73 years old Clinical indication: Abdominal pain; Generalized TECHNIQUE: Imaging protocol: Computed tomography of the abdomen and pelvis without contrast. Radiation optimization: All CT scans at this facility use at least one of these dose optimization techniques: automated exposure control; mA and/or kV adjustment per patient size (includes targeted exams where dose is matched to clinical indication); or iterative reconstruction. COMPARISON: CT abdomen pelvis w con* [id number] 02/17/2024 9:10 PM RADIATION DOSE METRICS: Total DLP (mGy-cm): 454.2 FINDINGS: Lungs: Lung bases are clear. No pleural effusion. Pleural spaces: A small left pleural effusion is noted. Liver: The liver demonstrates an irregular contour and parenchymal heterogeneity consistent with cirrhosis. I see no liver mass. Gallbladder and biliary ducts: Normal. No calcified stones. No ductal dilation. Pancreas: Normal. No ductal dilation. Spleen: Moderate splenomegaly is noted. Adrenal glands: Normal. No mass. Kidneys and ureters: Normal. No hydronephrosis. Stomach and bowel: There is prominent wall thickening involving much of the colon. Appendix: No evidence of appendicitis. Intraperitoneal space: Prominent ascites is noted throughout the abdomen and pelvis. Vasculature: Unremarkable. No abdominal aortic aneurysm. Lymph nodes: Unremarkable. No enlarged lymph nodes. Urinary bladder: Unremarkable as visualized. Reproductive: Unremarkable as visualized. Bones/joints: Unremarkable. No acute fracture. Soft tissues: Unremarkable. CT/CT abdomen pelvis wo con [id number] IMPRESSION: 1. Hepatic cirrhosis with splenomegaly and prominent ascites 2. Diffuse colon wall thickening. This is felt to be due to either portal venous hypertension or acute colitis
--- NOTE | 2024-03-10 17:47 | PM.HP ---
Providers/Chief Complaint Primary Care Provider: Tim Medina MD Chief Complaint: N/V/D History of Present Illness Sandra Gamboa is a 73 year old female with a past medical history of dementia, failure to thrive, hypertension, GERD, history of C. difficile x 2, recent hospitalization and discharge for C. difficile colitis, who presents to [facility] due to abdominal pain, dehydration, diarrhea, lower extreme edema. Currently patient is alert to person, not to place, to time her complaint is abdominal discomfort, and diarrhea, she denies any nausea, no vomiting, no fevers, but does report chills. Her son at bedside helps with the history taking, who helps take care of her, he tells me that since getting out of the hospital she is significantly improved, however after putting the vancomycin 3 days thereafter she started developing copious amounts of flatulent foul-smelling diarrhea, associated with poor appetite, he has also noticed that she has developed lower extremity edema but has no chest pain complaints, does not look short of breath Review of Systems Const: Reports: chills GI: Reports: abdominal pain and diarrhea; Denies: nausea or vomiting Medications/Allergies Home Medications Medication Instructions Recorded Confirmed Last Taken Type albuterol sulfate 90 mcg/actuation 2 puff inhalation QID PRN 09/06/23 02/18/24 02/17/24 History aerosol inhaler Shortness Of Breath cholecalciferol (vitamin D3) 125 10,000 unit PO DAILY 09/06/23 02/18/24 02/17/24 History mcg (5,000 unit) tablet (Vitamin D3) omeprazole 40 mg capsule,delayed 40 mg PO QAM PRN Acid Reflux 09/06/23 02/18/24 02/17/24 History release memantine ER 7 mg-donepezil 10 mg 1 cap PO DAILY #60 ea 10/29/23 02/18/24 02/17/24 Rx capsule sprinkle,ext.release 24 hour lisinopril 20 mg tablet 20 mg PO DAILY blood pressure #30 11/14/23 02/18/24 02/17/24 Rx tabs potassium gluconate 595 mg (99 mg) 595 mg PO DAILY #30 tabs 11/14/23 02/18/24 02/17/24 Rx tablet magnesium 250 mg tablet 250 mg PO DAILY 01/21/24 02/18/24 02/17/24 History quetiapine 25 mg tablet 25 mg PO BEDTIME PRN Sleep 01/21/24 02/18/24 02/17/24 History alprazolam 0.5 mg tablet (Xanax) 0.5 mg PO DAILY PRN anxiety 30 03/02/24 Unknown Rx days #30 tabs Allergies Allergy/AdvReac Type Severity Reaction Status Date / Time No Known Allergies Allergy Verified 03/10/24 13:10 PFSH Acute PFSH: Medical History (Updated 03/10/24 @ 17:50 by Jerrell Delatorre MD) Hypomagnesemia Electrolyte abnormality Coronary stent patent Depression Hypertension GERD (gastroesophageal reflux disease) Failure to thrive Altered mental status Dementia Hyperbilirubinemia Hypercalcemia Hypokalemia Surgical History (Updated 03/10/24 @ 17:49 by Jerrell Delatorre MD) History of cardiac cath Family History Father Heart disease Mother Cancer Social History Smoking and tobacco/nicotine status: current every day tobacco/nicotine user Quit status (tobacco/nicotine): not considering quitting Alcohol intake: former Substance/Drug Use: current Substance/Drug use frequency: few times a week Vitals/I&O/Wt Last Vital Signs Temp 98.1 F 03/10/24 13:02 Pulse 65 03/10/24 17:30 Resp 20 H 03/10/24 17:30 BP 147/67 03/10/24 17:30 Pulse Ox 98 03/10/24 17:30 O2 Del Method Room Air 03/10/24 17:30 Weight last 48 hrs Weight 49.895 kg Physical Exam Const: EXAM LIMITATIONS: altered mental status ORIENTATION/CONSCIOUSNESS: Yes awake, Yes oriented to person and Yes confused; not oriented to place and not oriented to time HENMT: COMMON NORMALS: normocephalic HEAD & SCALP: normocephalic Eye: COMMON NORMALS: Equal, round and reactive pupils present Neck/C-Spine: COMMON NORMALS: no JVD Resp: COMMON NORMALS: normal respiratory effort, No retractions, No use of accessory muscles and clear to auscultation bilaterally AUSCULTATION: clear to auscultation bilaterally Cardio: COMMON NORMALS: regular rate, regular rhythm, S1 normal heart sound present and S2 normal heart sound present RATE: regular rate RHYTHM: regular rhythm HEART SOUNDS: S1 normal heart sound present and S2 normal heart sound present GI: OTHER: Abdomen is soft, distended, good bowel sounds in all 4 quadrants a bit hyperactive, no guarding, no rebound, rigidity does have diffuse tenderness, Extremity: NARRATIVE EXTREMITY EXAM: 2+ pitting edema bilateral extremity Neuro: OTHER: Moves bilateral upper and lower extremities, does follow commands, no facial droop, no slurring of her words Data 03/10/24 14:18 03/10/24 14:18 A&P Assessment and plan (1) Recurrent colitis due to Clostridioides difficile: (2) Bilateral lower extremity edema: (3) Thrombocytopenia: Plan Third reoccurrence for C. difficile colitis -C. difficile result is pending, however highly suspicious for C. difficile Plan -Started on IV Flagyl -Increase p.o. vancomycin to 250 every 6 hours -CT abdomen pelvis -Clear liquids for now -Serial abdominal exams -Will hold off on IV fluids given bilateral lower extremity 2+ pitting edema -Bilateral extremity 2+ pitting edema, etiology uncertain potentially hypoalbuminemia, but will order troponin series, BNP -Venous ultrasound ordered -Acute encephalopathy with underlying dementia, monitor mentation closely -Full code -Lovenox for DVT prophylaxis Attestations Medical Necessity Statement*: Patient requires hospitalization, inpatient, greater than 2 midnights for third reoccurrence of C. difficile colitis, recurrent hospitalization for IV antibiotics, abdominal pain, bilateral edema Diagnoses Recurrent colitis due to Clostridioides difficile A04.71 Bilateral lower extremity edema R60.0 Thrombocytopenia D69.6
--- NOTE | 2024-03-10 18:01 | ECG_ITS ---
[facility] Test Date: 2024-03-10 Pat Name: Sandra Gamboa Department: Room: Gender: Female Cutting Inspector: : 1950 Requested By: Jerrell Delatorre Order Number: [id number] Reading MD: ALVARO MAURICIO Measurements Intervals Greig Rate: 72 P: 79 SC: 174 QRS: 25 QRSD: 85 T: 63 QT: 402 QTc: 442 Interpretive Statements SINUS RHYTHM WITH OCCASIONAL SUPRAVENTRICULAR PREMATURE COMPLEXES ANTEROSEPTAL MYOCARDIAL INFARCTION , OF INDETERMINATE AGE [40+ ms Q WAVE IN V1-V4] Compared to ECG 11/22/2023 14:35:17 Sinus arrhythmia no longer present Myocardial infarct finding still present Electronically Signed On 03-11-2024 20:08:10 CDT by ALVARO MAURICIO [id number]
[2024-03-10 18:14] LABS: INR 1.37 (0.8-1.2)
[2024-03-10 18:19] LABS: Lactic Sepsis W/Reflex 2.8 mmol/L (0.5-2.2)
[2024-03-10 18:30] LABS: NT Pro B Type Natriuretic Pept 2134 pg/mL (0-450); Procalcitonin 0.23 ng/mL (0-0.5)
[2024-03-10 18:40] LABS: C Reactive Protein 18.4 mg/L (0.0-4.9); Gamma Glutamyl Transferase 19 U/L (5-36); Lipase 24 U/L (13-60)
[2024-03-10 19:16] LABS: Troponin(5th) Baseline 9 ng/L (0-10)
[2024-03-10 19:43] LABS: Reflex Lactate Order REFLEX LACTIC ORDERD
--- NOTE | 2024-03-10 20:33 | ECG_ITS ---
[facility] Test Date: 2024-03-10 Pat Name: Sandra Gamboa Department: Room: 262 Gender: Female Legal Analyst: : 1950 Requested By: Jerrell Delatorre Order Number: [id number] Reading MD: ALVARO MAURICIO Measurements Intervals [place] Rate: 76 P: 0 [place]: 0 QRS: 37 QRSD: 80 T: 82 QT: 345 QTc: 389 Interpretive Statements ATRIAL FIBRILLATION ANTEROSEPTAL MYOCARDIAL INFARCTION , OF INDETERMINATE AGE [40+ ms Q WAVE IN V1-V4] Compared to ECG 03/10/2024 18:01:25 Sinus rhythm no longer present Myocardial infarct finding still present Electronically Signed On 03-11-2024 20:11:54 CDT by ALVARO MAURICIO [id number]
[2024-03-10] MEDS: pantoprazole 40 mg SDV IVP (20:54)
[2024-03-10] MEDS: metroNIDAZOLE IV 500 MG/100 ML PREMIX 100 MG IV (20:54)
[2024-03-10] MEDS: quetiapine 25 mg Tablet PO (20:55)
[2024-03-10] MEDS: vancomycin 125 mg Capsule 250 MG PO (20:55)
--- NOTE | 2024-03-10 21:29 | PC.NURSE ---
Patient currently in hoodie and sweat pants. Patient refusing to change into hospitals gown, stating I'm freezing cold.
[2024-03-10 21:39] LABS: C.Diff PCR (Lab) POSITIVE (Negative)
--- NOTE | 2024-03-10 21:46 | PC.NURSE ---
Son, Saroj notified to bring in patient's home medication Namzeric, due to it not being carried in our pharmacy. Son states he will be coming in tomorrow to feed patient her meals. He states she seems to eat better when I spoon feed her.
[2024-03-10 22:06] LABS: Troponin 5 2HR 8.38 ng/L (0-10)
[2024-03-10 22:07] LABS: Lactic Acid level (Lactate) 2.2 mmol/L (0.5-2.2)
[2024-03-10 22:12] LABS: Clostridioides Difficile Toxin NEGATIVE (Negative)
[2024-03-10 22:18] LABS: Thyroid Stimulating Hormone 6.13 uIU/mL (0.27-4.20); Troponin 5 2HR Delta -0.62 ABS# (0-10)
[2024-03-10 22:49] LABS: Troponin 5 6HR 15.03 ng/L (0-10); Troponin 5 6HR Delta 6.03 ng/L (0-12)
[2024-03-11] VITALS (10 sets, daily range): BP systolic 143–160; BP diastolic 65–77; PULSE 62–88; RESP 13–18; TEMP 36.5–36.9; O2SAT 93–96
[2024-03-11] MEDS: vancomycin 125 mg Capsule 250 MG PO ×4 (01:41→20:54)
[2024-03-11] MEDS: metroNIDAZOLE IV 500 MG/100 ML PREMIX 100 MG IV ×3 (04:10→21:01)
[2024-03-11 06:05] LABS: Basophils % 0.9 %; Eosinophils # 0.2 10^3/uL (0.0-0.8); Eosinophils % 8.7 %; Hematocrit 30.3 % (36-47); Lymphocytes # 0.8 10^3/uL (0.8-4.8); Lymphocytes % 32.6 %; Mean Corpuscular HGB Conc 33.3 g/dL (30-55); Mean Corpuscular Hemoglobin 30.4 pg (27-33); Mean Corpuscular Volume 91.3 fl (85-98); Mean Platelet Volume 11.7 fL (7.4-10.4); Monocytes # 0.4 10^3/uL (0.2-0.9); Monocytes % 18.7 %; Neutrophils % 38.7 %; Nucleated Red Blood Cells % 0 %; Platelet Count 52 10^3/cmm (157-399); Red Blood Count 3.32 10^6/uL (3.85-5.65); Red Cell Distribution Width 18.5 % (12.1-15.1)
[2024-03-11 06:30] LABS: Alanine Aminotransferase 8 U/L (0-33); Albumin Level 2.4 g/dL (3.5-5.2); Alkaline Phosphatase 62 U/L (35-105); Anion Gap 11.2 (5-19); Aspartate Amino Transferase 18 U/L (0-32); Blood Urea Nitrogen 8 mg/dL (8-23); Calcium 7.6 mg/dL (8.5-10.5); Carbon Dioxide 22 mmol/L (22-29); Chloride 110 mmol/L (98-107); Creatinine Clr Calc Pharmacy 51.8429; Globulin 1.9 g/dL (1.3-4.6); Glucose 91 mg/dL (65-115); Osmolality Calculated 288 mOsm/kg (285-295); Potassium 3.2 mmol/L (3.5-5.1); Sodium 140 mmol/L (136-145); Total Bilirubin 1.6 mg/dL (0.15-1.2); Total Protein 4.3 g/dL (6.6-8.7)
[2024-03-11 06:34] LABS: Neutrophils # 0.89 10^3/uL (1.8-7.7); Slide Review Slide Review Perform
--- NOTE | 2024-03-11 08:47 | PC.NURSE ---
patient states she does not want a flu shot today. Will get at Primary care physicians office. Does not feel well enough for the flu shot
--- NOTE | 2024-03-11 15:42 | USCV_ITS ---
Sandra Gamboa Age: 73 Gender: F : 1950 Exam Date: 03/11/2024 17:44 Ordering Phys: Jerrell Delatorre MD Technologist: MALIK Exam Location: [facility] Indication: SOB, HTN, GERD. Patient is poor historian, very weak and frail. BP: 149 / 77 HR: 68 Rhythm: Sinus Technical Quality: Adequate MEASUREMENTS (Male / Female) Normal Values 2D ECHO LV Diastolic Diameter PLAX 4.2 cm 4.2 - 5.9 / 3.9 - 5.3 cm IVS Diastolic Thickness 1.3 cm 0.6 - 1.0 / 0.6 - 0.9 cm IVS Systolic Thickness 1.6 cm LVPW Diastolic Thickness 1.2 cm 0.6 - 1.0 / 0.6 - 0.9 cm LVPW Systolic Thickness 1.9 cm LVOT Diameter 1.7 cm LV Ejection Fraction 2D Teich 61.9 % LV Ejection Fraction MOD 4C 39.4 % LV Ejection Fraction MOD 2C 76.2 % LV Ejection Fraction 2C AL 78.5 % LA Diameter 3.1 cm Aorta at Sinotubular Diameter 2.8 cm IVC Diameter 1.4 cm M-MODE LA Ao Ratio MM 1.4 AV Cusp Separation MM 1.6 cm DOPPLER AV Peak Velocity 145.0 cm/s LVOT Peak Velocity 82.0 cm/s AV Area Cont Eq vti 1.2 cm squared AV Area Cont Eq pk 1.3 cm squared MV Peak Velocity 112.0 cm/s MV Area PHT 5.0 cm squared Mitral E to A Ratio 1.4 TV Peak Velocity 289.0 cm/s TR Peak Velocity 290.0 cm/s TR Peak Gradient 33.6 mmHg TV Peak E Velocity 52.0 cm/s Right Atrial Pressure 5.0 mmHg Pulmonary Artery Systolic Pressu 38.6 mmHg PV Peak Velocity 89.0 cm/s FINDINGS Left Ventricle Normal left ventricular size, systolic function and wall thickness, with no regional wall motion abnormalities. Left ventricular ejection fraction is estimated at 60 %. Grade II/IV diastolic dysfunction, moderately elevated filling pressures. Right Ventricle Normal right ventricular size. Mild pulmonary hypertension, RVSP 38.6 mmHg. Right Atrium The right atrium is normal in size. Left Atrium Moderately increased left atrial size. Mitral Valve Moderately thickened mitral valve. Moderate mitral valve regurgitation. Aortic Valve Structurally normal aortic valve without significant sclerosis or stenosis. There is no aortic regurgitation. Tricuspid Valve Mild tricuspid valve regurgitation. Pulmonic Valve Structurally normal pulmonic valve without significant stenosis. There is no pulmonic regurgitation. Pericardium Normal pericardium without effusion. Aorta Normal ascending aorta dimension. IVC The inferior vena cava appears normal. CONCLUSIONS Normal left ventricular size, systolic function and wall thickness, with no regional wall motion abnormalities. Left ventricular ejection fraction is estimated at 60 %. Grade II/IV diastolic dysfunction, moderately elevated filling pressures. Normal right ventricular size. Mild pulmonary hypertension, RVSP 38.6 mmHg. Moderately increased left atrial size. There is no pericardial effusion. Right atrial pressure is around 10 mm of mercury. Supriya Bishop MD (Electronically Signed) Final Date: 11 March 2024 21:27 S
--- NOTE | 2024-03-11 15:42 | P.PN_ITS ---
Subjective 2 Subjective: Patient was seen this morning, she denies any fevers, chills continues to have diarrhea, she does report a better appetite, son is at bedside Vitals/I&O/Wt Last Vital Signs Temp 97.9 F 03/11/24 11:44 Pulse 88 03/11/24 11:55 Resp 18 03/11/24 11:55 BP 143/75 03/11/24 11:44 Pulse Ox 96 03/11/24 11:55 O2 Del Method Room Air 03/11/24 11:55 03/11/24 03/11/24 03/11/24 06:59 14:59 22:59 Intake Total 220 / 1320 480 / 480 Balance 220 / 1320 480 / 480 Weight last 48 hrs Weight 53.07 kg Weight 53.161 kg Weight 49.895 kg Physical Exam 2 Const: COMMON NORMALS: no acute distress ORIENTATION/CONSCIOUSNESS: Yes awake, Yes oriented to person and Yes oriented to place; not oriented to time Resp: COMMON NORMALS: normal respiratory effort, No retractions, No use of accessory muscles and clear to auscultation bilaterally AUSCULTATION: clear to auscultation bilaterally Cardio: COMMON NORMALS: regular rate, regular rhythm, S1 normal heart sound present and S2 normal heart sound present RATE: regular rate RHYTHM: r egular rhythm HEART SOUNDS: S1 normal heart sound present and S2 normal heart sound present GI: COMMON NORMALS: Normal to inspection, nondistended, normoactive bowel sounds present and non-tender Extremity: COMMON NORMALS: no pedal edema Neuro: SENSORIUM/ORIENTATION: Yes oriented to person, Yes oriented to place and No oriented to time Psych: COMMON NORMALS: mental status grossly normal Data 03/11/24 05:37 03/11/24 05:37 A&P Assessment and plan (1) Recurrent colitis due to Clostridioides difficile: (2) Bilateral lower extremity edema: (3) Thrombocytopenia: (4) Neutropenia: Plan Third reoccurrence for C. difficile colitis -C. difficile result is pending, however highly suspicious for C. difficile Plan -Started on IV Flagyl -Increase p.o. vancomycin to 250 every 6 hours -Developing neutropenia likely sec to C. difficile, continue to monitor, isolation precautions -CT abdomen pelvis CT/CT abdomen pelvis wo con [id number] IMPRESSION: 1. Hepatic cirrhosis with splenomegaly and prominent ascites 2. Diffuse colon wall thickening. This is felt to be due to either portal venous hypertension or acute colitis -History of liver cirrhosis, splenomegaly, ascites -Advance diet as tolerated, on general diet -Serial abdominal exams -Will hold off on IV fluids given bilateral lower extremity 2+ pitting edema, cardiac echo -Bilateral extremity 2+ pitting edema, etiology uncertain potentially hypoalbuminemia, -Venous ultrasound ordered negative for DVT -Acute encephalopathy with underlying dementia, monitor mentation closely -Full code -Lovenox for DVT prophylaxis Attestations 2 Medical Necessity Statement*: Patient requires hospitalization for C. difficile colitis, inpatient, greater than 2 midnights Diagnoses Recurrent colitis due to Clostridioides difficile A04.71 Bilateral lower extremity edema R60.0 Thrombocytopenia D69.6 Neutropenia D70.9
[2024-03-11 20:22] LABS: Anion Gap 7.1 (5-19); Blood Urea Nitrogen 8 mg/dL (8-23); Calcium 7.6 mg/dL (8.5-10.5); Carbon Dioxide 23 mmol/L (22-29); Chloride 106 mmol/L (98-107); Creatinine Clr Calc Pharmacy 51.8429; Glucose 98 mg/dL (65-115); Osmolality Calculated 274 mOsm/kg (285-295); Potassium 3.1 mmol/L (3.5-5.1); Sodium 133 mmol/L (136-145)
[2024-03-11] MEDS: pantoprazole 40 mg SDV IVP (21:01)
[2024-03-12] VITALS (11 sets, daily range): BP systolic 116–178; BP diastolic 73–98; PULSE 71–89; RESP 15–20; TEMP 36.5–37; O2SAT 93–98
[2024-03-12] MEDS: vancomycin 125 mg Capsule 250 MG PO ×4 (02:04→21:13)
[2024-03-12] MEDS: metroNIDAZOLE IV 500 MG/100 ML PREMIX 100 MG IV ×3 (05:11→21:14)
[2024-03-12 06:28] LABS: Basophils % 1.1 %; Eosinophils # 0.3 10^3/uL (0.0-0.8); Eosinophils % 11.7 %; Hematocrit 34.5 % (36-47); Lymphocytes % 33.9 %; Mean Corpuscular Hemoglobin 29.8 pg (27-33); Mean Corpuscular Volume 90.3 fl (85-98); Mean Platelet Volume 11.2 fL (7.4-10.4); Monocytes # 0.4 10^3/uL (0.2-0.9); Monocytes % 14.8 %; Neutrophils # 1.08 10^3/uL (1.8-7.7); Neutrophils % 38.1 %; Nucleated Red Blood Cells % 0 %; Platelet Count 66 10^3/cmm (157-399); Red Blood Count 3.82 10^6/uL (3.85-5.65); Red Cell Distribution Width 18.1 % (12.1-15.1); White Blood Count 2.83 10^3/uL (3.29-11.43)
[2024-03-12] MEDS: ALPRAZolam 0.5 mg Tablet PO (06:47)
[2024-03-12] MEDS: acetaminophen 325 mg Tablet 650 MG PO (06:47)
[2024-03-12 06:50] LABS: Alanine Aminotransferase 8 U/L (0-33); Albumin Level 2.5 g/dL (3.5-5.2); Alkaline Phosphatase 67 U/L (35-105); Anion Gap 11.1 (5-19); Aspartate Amino Transferase 18 U/L (0-32); Blood Urea Nitrogen 7 mg/dL (8-23); Carbon Dioxide 23 mmol/L (22-29); Chloride 108 mmol/L (98-107); Creatinine Clr Calc Pharmacy 53.3047; Globulin 2.3 g/dL (1.3-4.6); Glucose 105 mg/dL (65-115); Osmolality Calculated 286 mOsm/kg (285-295); Potassium 3.1 mmol/L (3.5-5.1); Sodium 139 mmol/L (136-145); Total Bilirubin 1.8 mg/dL (0.15-1.2); Total Protein 4.8 g/dL (6.6-8.7)
[2024-03-12] MEDS: amlodipine 10 mg Tablet PO (08:39)
[2024-03-12] MEDS: potassium chloride ER 20 mEq Tablet 40 MEQ PO (08:39)
[2024-03-12] MEDS: donepezil 5 MG Tablet 10 MG PO (08:39)
[2024-03-12] MEDS: memantine 5 mg tablet 7.5 MG PO (08:39)
--- NOTE | 2024-03-12 16:07 | PC.NURSE ---
Notified Dr. Delatorre of patient acting differently after son fed patient lunch, such as being really tired and acting sedated and out of it but able to answer all orientation questions. I ask the patients son if he had given any home medications to the patient and son denied giving patient anything. Vitals have been within normal limits.
--- NOTE | 2024-03-12 16:46 | P.PN_ITS ---
Subjective 2 Subjective: Patient was seen this morning, she is alert to person, to place, not to time she follows commands, no nausea, no vomiting continues to have diarrhea but improved compared to yesterday continues to have complaints of lower extremity pitting edema, no shortness of breath, no cough Vitals/I&O/Wt Last Vital Signs Temp 97.8 F 03/12/24 16:35 Pulse 73 03/12/24 16:35 Resp 16 03/12/24 16:35 BP 116/73 03/12/24 16:35 Pulse Ox 97 03/12/24 16:35 O2 Del Method Room Air 03/12/24 16:35 03/12/24 03/12/24 03/12/24 06:59 14:59 22:59 Intake Total 100 / 780 480 / 480 Balance 100 / 730 480 / 480 Weight last 48 hrs Weight 56.88 kg Weight 53.07 kg Weight 53.161 kg Physical Exam 2 Const: COMMON NORMALS: no acute distress ORIENTATION/CONSCIOUSNESS: Yes awake, Yes oriented to person and Yes oriented to place; not oriented to time Resp: COMMON NORMALS: normal respiratory effort, No retractions, No use of accessory muscles and clear to auscultation bilaterally AUSCULTATION: clear to auscultation bilaterally Cardio: COMMON NORMALS: regular rate, regular rhythm, S1 normal heart sound present and S2 normal heart sound present RATE: regular rate RHYTHM: r egular rhythm HEART SOUNDS: S1 normal heart sound present and S2 normal heart sound present GI: COMMON NORMALS: Normal to inspection, nondistended, normoactive bowel sounds present and non-tender Extremity: COMMON NORMALS: no pedal edema Neuro: SENSORIUM/ORIENTATION: Yes oriented to person, Yes oriented to place and No oriented to time Data 03/12/24 06:13 03/12/24 06:13 A&P Assessment and plan (1) Recurrent colitis due to Clostridioides difficile: (2) Bilateral lower extremity edema: (3) Thrombocytopenia: (4) Neutropenia: Plan Third reoccurrence for C. difficile colitis -C. difficile result is pending, however highly suspicious for C. difficile Plan -on IV Flagyl -Increase p.o. vancomycin to 250 every 6 hours -Developing neutropenia likely sec to C. difficile, continue to monitor, isolation precautions -CT abdomen pelvis CT/CT abdomen pelvis wo con [id number] IMPRESSION: 1. Hepatic cirrhosis with splenomegaly and prominent ascites 2. Diffuse colon wall thickening. This is felt to be due to either portal venous hypertension or acute colitis -History of liver cirrhosis, splenomegaly, ascites -Advance diet as tolerated, on general diet -Serial abdominal exams -Will hold off on IV fluids given bilateral lower extremity 2+ pitting edema, cardiac echo -Bilateral extremity 2+ pitting edema, will give dose of Lasix today -Venous ultrasound ordered negative for DVT -Acute encephalopathy with underlying dementia, monitor mentation closely, improving -Full code -Lovenox for DVT prophylaxis Attestations 2 Medical Necessity Statement*: Patient requires hospitalization for C. difficile colitis, persistent diarrhea, lower extremity edema Diagnoses Recurrent colitis due to Clostridioides difficile A04.71 Bilateral lower extremity edema R60.0 Thrombocytopenia D69.6 Neutropenia D70.9
[2024-03-12] MEDS: potassium chloride ER 20 mEq Tablet PO (17:42)
[2024-03-12] MEDS: FUROsemide 10 mg/mL SDV 2mL 20 MG IVP (17:42)
[2024-03-12] MEDS: pantoprazole 40 mg SDV IVP (21:14)
[2024-03-13] VITALS (12 sets, daily range): BP systolic 119–146; BP diastolic 64–90; PULSE 72–89; RESP 15–20; TEMP 36.6–37.1; O2SAT 93–96
[2024-03-13] MEDS: vancomycin 125 mg Capsule 250 MG PO ×4 (02:07→20:49)
[2024-03-13 05:40] LABS: Basophils % 0.8 %; Eosinophils # 0.4 10^3/uL (0.0-0.8); Eosinophils % 10.9 %; Hematocrit 31.5 % (36-47); Lymphocytes # 1.2 10^3/uL (0.8-4.8); Lymphocytes % 32.1 %; Mean Corpuscular HGB Conc 33.7 g/dL (30-55); Mean Corpuscular Hemoglobin 29.8 pg (27-33); Mean Corpuscular Volume 88.5 fl (85-98); Mean Platelet Volume 10.8 fL (7.4-10.4); Monocytes # 0.5 10^3/uL (0.2-0.9); Monocytes % 13.2 %; Neutrophils # 1.64 10^3/uL (1.8-7.7); Neutrophils % 42.5 %; Nucleated Red Blood Cells % 0 %; Platelet Count 76 10^3/cmm (157-399); Red Blood Count 3.56 10^6/uL (3.85-5.65); Red Cell Distribution Width 17.7 % (12.1-15.1); White Blood Count 3.86 10^3/uL (3.29-11.43)
[2024-03-13] MEDS: metroNIDAZOLE IV 500 MG/100 ML PREMIX 100 MG IV ×3 (05:55→20:50)
[2024-03-13 06:01] LABS: Alanine Aminotransferase 7 U/L (0-33); Albumin Level 2.4 g/dL (3.5-5.2); Alkaline Phosphatase 72 U/L (35-105); Anion Gap 11.2 (5-19); Aspartate Amino Transferase 14 U/L (0-32); Blood Urea Nitrogen 6 mg/dL (8-23); Calcium 7.8 mg/dL (8.5-10.5); Carbon Dioxide 25 mmol/L (22-29); Chloride 108 mmol/L (98-107); Creatinine Clr Calc Pharmacy 53.3397; Glucose 86 mg/dL (65-115); Osmolality Calculated 289 mOsm/kg (285-295); Potassium 3.2 mmol/L (3.5-5.1); Sodium 141 mmol/L (136-145); Total Bilirubin 1.3 mg/dL (0.15-1.2); Total Protein 4.4 g/dL (6.6-8.7)
[2024-03-13 06:18] LABS: Magnesium 1.2 mg/dL (1.7-2.3)
[2024-03-13] MEDS: magnesium sulfate premix 2 GM/50 ML PIGGYBACK IV (07:53)
[2024-03-13] MEDS: lidocaine 1% 5 ML in potassium chloride premix 100 ML 52.5 ML IV (08:00)
[2024-03-13] MEDS: donepezil 5 MG Tablet 10 MG PO (09:05)
[2024-03-13] MEDS: amlodipine 10 mg Tablet PO (09:06)
[2024-03-13] MEDS: memantine 5 mg tablet 7.5 MG PO (09:06)
--- NOTE | 2024-03-13 09:58 | PC.SOCIAL ---
IMM Update pg 2 of IMM Updated and reviewed w/ patient and son. Copy provided and copy dated, initialed and placed in chart.
[2024-03-13 13:20] LABS: Glucose Point of Care 112 mg/dL (70-110)
--- NOTE | 2024-03-13 14:04 | P.PN_ITS ---
Subjective 2 Subjective: Patient was seen this morning, son is at bedside, she is much more alert and awake, follows commands, sitting up to side of the bed, her appetite remains lackluster but she is trying to eat her breakfast, diarrhea has improved, Vitals/I&O/Wt Last Vital Signs Temp 98.6 F 03/13/24 12:00 Pulse 74 03/13/24 12:00 Resp 18 03/13/24 12:00 BP 119/64 03/13/24 12:00 Pulse Ox 96 03/13/24 12:00 O2 Del Method Room Air 03/13/24 12:00 03/12/24 03/13/24 03/13/24 22:59 06:59 14:59 Intake Total 680 / 1160 240 / 1400 255 / 255 Output Total 300 / 300 400 / 700 Balance 380 / 860 -160 / 700 255 / 255 Weight last 48 hrs Weight 56.971 kg Weight 56.88 kg Physical Exam 2 Const: COMMON NORMALS: no acute distress ORIENTATION/CONSCIOUSNESS: Yes awake, Yes oriented to person and Yes oriented to place; not oriented to time Resp: COMMON NORMALS: normal respiratory effort, No retractions, No use of accessory muscles and clear to auscultation bilaterally AUSCULTATION: clear to auscultation bilaterally Cardio: COMMON NORMALS: regular rate, regular rhythm, S1 normal heart sound present and S2 normal heart sound present RATE: regular rate RHYTHM: r egular rhythm HEART SOUNDS: S1 normal heart sound present and S2 normal heart sound present GI: COMMON NORMALS: Normal to inspection, nondistended, normoactive bowel sounds present and non-tender Extremity: COMMON NORMALS: no pedal edema Neuro: SENSORIUM/ORIENTATION: Yes oriented to person, Yes oriented to place and No oriented to time Psych: COMMON NORMALS: mental status grossly normal Data 03/13/24 05:17 03/13/24 05:17 A&P Assessment and plan (1) Recurrent colitis due to Clostridioides difficile: (2) Bilateral lower extremity edema: (3) Thrombocytopenia: (4) Neutropenia: Plan Third reoccurrence for C. difficile colitis -C. difficile result is pending, however highly suspicious for C. difficile Plan -on IV Flagyl -Increase p.o. vancomycin to 250 every 6 hours -Developing neutropenia likely sec to C. difficile, continue to monitor, isolation precautions -CT abdomen pelvis CT/CT abdomen pelvis wo con [id number] IMPRESSION: 1. Hepatic cirrhosis with splenomegaly and prominent ascites 2. Diffuse colon wall thickening. This is felt to be due to either portal venous hypertension or acute colitis -History of liver cirrhosis, splenomegaly, ascites -Advance diet as tolerated, on general diet -Serial abdominal exams -Will hold off on IV fluids given bilateral lower extremity 2+ pitting edema, cardiac echo CONCLUSIONS Normal left ventricular size, systolic function and wall thickness, with no regional wall motion abnormalities. Left ventricular ejection fraction is estimated at 60 %. Grade II/IV diastolic dysfunction, moderately elevated filling pressures. Normal right ventricular size. Mild pulmonary hypertension, RVSP 38.6 mmHg. Moderately increased left atrial size. There is no pericardial effusion. Right atrial pressure is around 10 mm of mercury. -Bilateral extremity 1+ pitting edema, hold off Lasix therapy -Venous ultrasound ordered negative for DVT -Acute encephalopathy with underlying dementia, monitor mentation closely, improving -Full code -Lovenox for DVT prophylaxis Attestations 2 Medical Necessity Statement*: Patient requires hospitalization for C. difficile colitis Diagnoses Recurrent colitis due to Clostridioides difficile A04.71 Bilateral lower extremity edema R60.0 Thrombocytopenia D69.6 Neutropenia D70.9
[2024-03-13] MEDS: pantoprazole 40 mg SDV IVP (20:50)
[2024-03-14] VITALS (9 sets, daily range): BP systolic 117–160; BP diastolic 72–88; PULSE 68–105; RESP 16–18; TEMP 36.2–36.7; O2SAT 95–98
[2024-03-14] MEDS: vancomycin 125 mg Capsule 250 MG PO ×4 (01:52→21:03)
[2024-03-14 04:12] LABS: Basophils # 0.1 10^3/uL (0.0-0.1); Basophils % 1.1 %; Eosinophils # 0.5 10^3/uL (0.0-0.8); Lymphocytes # 1.6 10^3/uL (0.8-4.8); Mean Corpuscular HGB Conc 33.8 g/dL (30-55); Mean Corpuscular Hemoglobin 29.8 pg (27-33); Mean Corpuscular Volume 88.1 fl (85-98); Mean Platelet Volume 10.7 fL (7.4-10.4); Monocytes # 0.6 10^3/uL (0.2-0.9); Monocytes % 10.7 %; Neutrophils # 2.66 10^3/uL (1.8-7.7); Neutrophils % 49.1 %; Nucleated Red Blood Cells % 0 %; Platelet Count 93 10^3/cmm (157-399); Red Blood Count 3.86 10^6/uL (3.85-5.65); Red Cell Distribution Width 17.7 % (12.1-15.1); White Blood Count 5.42 10^3/uL (3.29-11.43)
[2024-03-14 04:43] LABS: Blood Urea Nitrogen 5 mg/dL (8-23); Calcium 7.7 mg/dL (8.5-10.5); Carbon Dioxide 24 mmol/L (22-29); Chloride 107 mmol/L (98-107); Creatinine Clr Calc Pharmacy 53.3397; Glucose 95 mg/dL (65-115); NT Pro B Type Natriuretic Pept 689 pg/mL (0-450); Osmolality Calculated 285 mOsm/kg (285-295); Sodium 139 mmol/L (136-145)
[2024-03-14 04:47] LABS: Anion Gap 11.4 (5-19); Potassium 3.4 mmol/L (3.5-5.1)
[2024-03-14 05:04] LABS: Magnesium 1.4 mg/dL (1.7-2.3); Phosphorus 2.1 mg/dL (2.5-4.5)
[2024-03-14] MEDS: metroNIDAZOLE IV 500 MG/100 ML PREMIX 100 MG IV ×3 (05:19→21:03)
[2024-03-14] MEDS: magnesium sulfate premix 1 GM/100 ML PIGGYBACK IV (08:48)
[2024-03-14] MEDS: memantine 5 mg tablet 7.5 MG PO (08:59)
[2024-03-14] MEDS: amlodipine 10 mg Tablet PO (08:59)
[2024-03-14] MEDS: donepezil 5 MG Tablet 10 MG PO (08:59)
[2024-03-14] MEDS: lidocaine 1% 5 ML in potassium chloride premix 100 ML 52.5 ML IV (09:03)
--- NOTE | 2024-03-14 15:12 | P.PN_ITS ---
Subjective 2 Subjective: Patient was seen this morning she was alert and oriented x 3, following all commands, denies any nausea, no vomiting she did have 1 episode of loose bowel movement Vitals/I&O/Wt Last Vital Signs Temp 97.1 F L 03/14/24 12:00 Pulse 86 03/14/24 12:00 Resp 18 03/14/24 12:00 BP 127/86 03/14/24 12:00 Pulse Ox 95 03/14/24 12:00 O2 Del Method Room Air 03/14/24 12:00 03/14/24 03/14/24 03/14/24 06:59 14:59 22:59 Intake Total 220 / 1265 445 / 445 Balance 220 / 865 445 / 445 Weight last 48 hrs Weight 56.971 kg Physical Exam 2 Const: COMMON NORMALS: no acute distress ORIENTATION/CONSCIOUSNESS: Yes awake and Yes oriented to person; not oriented to place and not oriented to time Resp: COMMON NORMALS: normal respiratory effort, No retractions, No use of accessory muscles and clear to auscultation bilaterally AUSCULTATION: clear to auscultation bilaterally Cardio: COMMON NORMALS: regular rate, regular rhythm, S1 normal heart sound present and S2 normal heart sound present RATE: regular rate RHYTHM: r egular rhythm HEART SOUNDS: S1 normal heart sound present and S2 normal heart sound present GI: COMMON NORMALS: Normal to inspection, nondistended, normoactive bowel sounds present and non-tender Extremity: COMMON NORMALS: no pedal edema Neuro: SENSORIUM/ORIENTATION: Yes oriented to person, No oriented to place and No oriented to time Psych: COMMON NORMALS: mental status grossly normal Data 03/14/24 03:50 03/14/24 03:44 A&P Assessment and plan (1) Recurrent colitis due to Clostridioides difficile: (2) Bilateral lower extremity edema: (3) Thrombocytopenia: (4) Neutropenia: Plan Third reoccurrence for C. difficile colitis -C. difficile result is pending, however highly suspicious for C. difficile Plan -on IV Flagyl -Increase p.o. vancomycin to 250 every 6 hours -Developing neutropenia likely sec to C. difficile, continue to monitor, isolation precautions -CT abdomen pelvis CT/CT abdomen pelvis wo con [id number] IMPRESSION: 1. Hepatic cirrhosis with splenomegaly and prominent ascites 2. Diffuse colon wall thickening. This is felt to be due to either portal venous hypertension or acute colitis -History of liver cirrhosis, splenomegaly, ascites -Advance diet as tolerated, on general diet -Serial abdominal exams -Will hold off on IV fluids given bilateral lower extremity 2+ pitting edema, cardiac echo CONCLUSIONS Normal left ventricular size, systolic function and wall thickness, with no regional wall motion abnormalities. Left ventricular ejection fraction is estimated at 60 %. Grade II/IV diastolic dysfunction, moderately elevated filling pressures. Normal right ventricular size. Mild pulmonary hypertension, RVSP 38.6 mmHg. Moderately increased left atrial size. There is no pericardial effusion. Right atrial pressure is around 10 mm of mercury. -Bilateral extremity 1+ pitting edema, hold off Lasix therapy -Venous ultrasound ordered negative for DVT -Acute encephalopathy with underlying dementia, monitor mentation closely, improving -Full code -Lovenox for DVT prophylaxis Plan for today continue high-dose vancomycin, continue Flagyl, 1 dose IV Lasix tomorrow morning, replace IV potassium, phosphorus, magnesium Attestations 2 Medical Necessity Statement*: Patient requires hospitalization for C. difficile colitis Diagnoses Recurrent colitis due to Clostridioides difficile A04.71 Bilateral lower extremity edema R60.0 Thrombocytopenia D69.6 Neutropenia D70.9
[2024-03-14] MEDS: pantoprazole 40 mg SDV IVP (21:03)
[2024-03-15] VITALS (7 sets, daily range): BP systolic 116–142; BP diastolic 69–83; PULSE 67–90; RESP 15–17; TEMP 36.6–36.9; O2SAT 94–98
[2024-03-15] MEDS: vancomycin 125 mg Capsule 250 MG PO ×3 (02:15→14:05)
[2024-03-15 05:40] LABS: Basophils # 0.1 10^3/uL (0.0-0.1); Basophils % 1.3 %; Eosinophils # 0.5 10^3/uL (0.0-0.8); Eosinophils % 6.7 %; Hematocrit 35.8 % (36-47); Lymphocytes % 26.2 %; Mean Corpuscular HGB Conc 33.5 g/dL (30-55); Mean Corpuscular Hemoglobin 29.9 pg (27-33); Mean Corpuscular Volume 89.1 fl (85-98); Monocytes # 0.8 10^3/uL (0.2-0.9); Monocytes % 10.8 %; Neutrophils # 4.02 10^3/uL (1.8-7.7); Neutrophils % 53.8 %; Nucleated Red Blood Cells % 0 %; Platelet Count 121 10^3/cmm (157-399); Red Blood Count 4.02 10^6/uL (3.85-5.65); Red Cell Distribution Width 17.9 % (12.1-15.1); White Blood Count 7.48 10^3/uL (3.29-11.43)
[2024-03-15] MEDS: metroNIDAZOLE IV 500 MG/100 ML PREMIX 100 MG IV (05:44)
[2024-03-15] MEDS: FUROsemide 10 mg/mL SDV 4mL 40 MG IVP (05:44)
[2024-03-15 06:07] LABS: Magnesium 1.5 mg/dL (1.7-2.3); Phosphorus 2.5 mg/dL (2.5-4.5)
[2024-03-15 06:09] LABS: Blood Urea Nitrogen 6 mg/dL (8-23); Calcium 7.9 mg/dL (8.5-10.5); Carbon Dioxide 23 mmol/L (22-29); Chloride 108 mmol/L (98-107); Creatinine Clr Calc Pharmacy 53.9858; Glucose 85 mg/dL (65-115); NT Pro B Type Natriuretic Pept 576 pg/mL (0-450); Osmolality Calculated 289 mOsm/kg (285-295); Sodium 141 mmol/L (136-145)
[2024-03-15 06:19] LABS: Anion Gap 13.5 (5-19); Potassium 3.5 mmol/L (3.5-5.1)
[2024-03-15] MEDS: amlodipine 10 mg Tablet PO (07:55)
[2024-03-15] MEDS: donepezil 5 MG Tablet 10 MG PO (07:56)
[2024-03-15] MEDS: memantine 5 mg tablet 7.5 MG PO (07:56)
[2024-03-15] MEDS: potassium chloride ER 20 mEq Tablet 40 MEQ PO (08:47)
[2024-03-15] MEDS: magnesium lactate 84 mg Tablet PO (08:47)
--- NOTE | 2024-03-15 10:57 | PM.DCS ---
Discharge Providers Date of Admission: 03/10/24 19:44 Date of Discharge: March 15, 2024 Attending Provider at Admission: Jerrell Delatorre MD Attending Provider at Discharge: Jerrell Delatorre MD Primary Care Provider: Tim Medina MD Diagnoses at Discharge Discharge Diagnosis (1) Recurrent colitis due to Clostridioides difficile: Status: Acute (2) Bilateral lower extremity edema: Status: Acute (3) Thrombocytopenia: Status: Inactive (4) Neutropenia: Status: Acute Reason for Visit Reason for Visit: N/V/D Hospital Course Hospital Course Sandra Gamboa is a 73 year old female with a past medical history of dementia, failure to thrive, hypertension, GERD, history of C. difficile x 2, recent hospitalization and discharge for C. difficile colitis, who presents to [facility] due to abdominal pain, dehydration, diarrhea, lower extreme edema. Currently patient is alert to person, not to place, to time her complaint is abdominal discomfort, and diarrhea, she denies any nausea, no vomiting, no fevers, but does report chills. Her son at bedside helps with the history taking, who helps take care of her, he tells me that since getting out of the hospital she is significantly improved, however after putting the vancomycin 3 days thereafter she started developing copious amounts of flatulent foul-smelling diarrhea, associated with poor appetite, he has also noticed that she has developed lower extremity edema but has no chest pain complaints, does not look short of breath Patient was admitted to [facility] for recurrent colitis due to C. difficile colitis, third reoccurrence, managed on high-dose vancomycin 250 every 6 hours, with IV Flagyl, IV hydration, overall patient clinically improved, diet improved, diarrhea has significantly improved, will discharge her on a pulsed tapered regimen of vancomycin, close follow-up with primary care provider as outpatient. Unfortunately fidaxomicin is on national shortage, but if she does have reoccurrence this could certainly be an option if it is in stock. Other options include fecal transplant. Patient did have lower extremity edema did receive Lasix, overall clinically improved. Discharged home, with a close follow-up with primary care provider as outpatient, discharged to the care of patient's son who is involved in her care Physical Exam Const: COMMON NORMALS: no acute distress and patient oriented x3 Resp: COMMON NORMALS: normal respiratory effort, No retractions, No use of accessory muscles and clear to auscultation bilaterally AUSCULTATION: clear to auscultation bilaterally Cardio: COMMON NORMALS: regular rate, regular rhythm, S1 normal heart sound present and S2 normal heart sound present RATE: regular rate RHYTHM: regular rhythm HEART SOUNDS: S1 normal heart sound present and S2 normal heart sound present GI: COMMON NORMALS: Normal to inspection, nondistended, normoactive bowel sounds present and non-tender Extremity: COMMON NORMALS: no pedal edema Neuro: COMMON NORMALS: patient oriented x3 Psych: COMMON NORMALS: mental status grossly normal Discharge Data Studies Completed and Pending Completed Studies During Hospitalization Category Date Time Status CT abdomen pelvis wo con [id number] Stat Cat Scan 03/10/24 17:46 Completed XR acute abdomen series [id number] Stat Exams 03/10/24 16:39 [place] [id number] Stat Ultrasound 03/10/24 17:46 Completed CV. echo complete* [id number] Routine Ultrasound 03/11/24 15:42 Completed Pending at discharge Category Date Time Status Basic Metabolic Panel AM LABS Lab 03/16/24 04:00 Ordered Complete Blood Count w/Auto AM LABS Lab 03/16/24 04:00 Ordered Magnesium AM LABS Lab 03/16/24 04:00 Ordered NT Pro B Type Natriuretic Pept QAM Lab 03/16/24 06:00 Ordered Phosphorus AM LABS Lab 03/16/24 04:00 Ordered Radiology Impressions Chest/Abdomen X-ray 03/10/24 16:39 IMPRESSION: No acute findings. Abdomen/Pelvis CT 03/10/24 17:46 IMPRESSION: 1. Hepatic cirrhosis with splenomegaly and prominent ascites 2. Diffuse colon wall thickening. This is felt to be due to either portal venous hypertension or acute colitis Venous Duplex 03/10/24 17:46 IMPRESSION: No evidence of deep vein thrombosis. Laboratory Results WBC 7.48 10^3/uL (3.29-11.43) 03/15/24 05:30 RBC 4.02 10^6/uL (3.85-5.65) 03/15/24 05:30 Hgb 12.00 g/dL (11.27-16.99) 03/15/24 05:30 Hct 35.8 % (36-47) L 03/15/24 05:30 MCV 89.1 fl (85-98) 03/15/24 05:30 MCH 29.9 pg (27-33) 03/15/24 05:30 MCHC 33.5 g/dL (30-55) 03/15/24 05:30 RDW 17.9 % (12.1-15.1) H 03/15/24 05:30 Plt Count 121 10^3/cmm (157-399) L D 03/15/24 05:30 MPV 11.0 fL (7.4-10.4) H 03/15/24 05:30 Neut % (Auto) 53.8 % 03/15/24 05:30 Lymph % (Auto) 26.2 % 03/15/24 05:30 [place] % (Auto) 10.8 % 03/15/24 05:30 Eos % (Auto) 6.7 % 03/15/24 05:30 Baso % (Auto) 1.3 % 03/15/24 05:30 Neut # (Auto) 4.02 10^3/uL (1.8-7.7) 03/15/24 05:30 Lymph # (Auto) 2.0 10^3/uL (0.8-4.8) 03/15/24 05:30 [place] # (Auto) 0.8 10^3/uL (0.2-0.9) 03/15/24 05:30 Eos # (Auto) 0.5 10^3/uL (0.0-0.8) 03/15/24 05:30 Baso # (Auto) 0.1 10^3/uL (0.0-0.1) 03/15/24 05:30 Nucleated RBC % (auto) 0 % 03/15/24 05:30 Nucleated RBCs # 0.0 /100WBC 03/15/24 05:30 PT 17.30 SECONDS (12.1-14.9) H 03/10/24 14:18 INR 1.37 (0.8-1.2) H 03/10/24 14:18 Sodium 141 mmol/L (136-145) 03/15/24 05:30 Potassium 3.5 mmol/L (3.5-5.1) 03/15/24 05:30 Chloride 108 mmol/L (98-107) H 03/15/24 05:30 Carbon Dioxide 23 mmol/L (22-29) 03/15/24 05:30 Anion Gap 13.5 (5-19) 03/15/24 05:30 BUN 6 mg/dL (8-23) L 03/15/24 05:30 Creatinine 0.5 mg/dL (0.5-0.9) 03/15/24 05:30 GFR Calculation Not Reportable 03/15/24 05:30 Glucose 85 mg/dL (65-115) 03/15/24 05:30 POC Glucose 112 mg/dL (70-110) H 03/13/24 13:10 Calculated Osmolality 289 mOsm/kg (285-295) 03/15/24 05:30 Lactic Acid 2.8 mmol/L (0.5-2.2) H 03/10/24 14:18 Lactic Acid (Sepsis) 2.2 mmol/L (0.5-2.2) 03/10/24 21:12 Calcium 7.9 mg/dL (8.5-10.5) L 03/15/24 05:30 Phosphorus 2.5 mg/dL (2.5-4.5) 03/15/24 05:30 Magnesium 1.5 mg/dL (1.7-2.3) L 03/15/24 05:30 Total Bilirubin 1.3 mg/dL (0.15-1.2) H 03/13/24 05:17 GGT 19 U/L (5-36) 03/10/24 14:18 AST 14 U/L (0-32) 03/13/24 05:17 ALT 7 U/L (0-33) 03/13/24 05:17 Alkaline Phosphatase 72 U/L (35-105) 03/13/24 05:17 Troponin T Baseline 9 ng/L (0-10) 03/10/24 14:18 Troponin T 120 Minute 8.38 ng/L (0-10) 03/10/24 21:12 Delta Troponin T -0.62 ABS# (0-10) L 03/10/24 21:12 Troponin T Hi Sens 6Hr 15.03 ng/L (0-10) H 03/10/24 22:18 Troponin T Hi Sens 6Hr Delta 6.03 ng/L (0-12) 03/10/24 22:18 C-Reactive Protein 18.4 mg/L (0.0-4.9) H 03/10/24 14:18 NT-Pro-B Natriuret Pep 576 pg/mL (0-450) H 03/15/24 05:30 Total Protein 4.4 g/dL (6.6-8.7) L 03/13/24 05:17 Albumin 2.4 g/dL (3.5-5.2) L 03/13/24 05:17 Globulin 2.0 g/dL (1.3-4.6) 03/13/24 05:17 Lipase 24 U/L (13-60) 03/10/24 14:18 Procalcitonin 0.23 ng/mL (0-0.5) 03/10/24 14:18 TSH 6.13 uIU/mL (0.27-4.20) H 03/10/24 21:12 C. difficile (PCR) Positive (Negative) H 03/10/24 19:25 C.difficile Tox Confrm Negative (Negative) 03/10/24 19:25 Vitals Last Vital Signs Temp 97.8 F 03/15/24 07:58 Pulse 78 03/15/24 10:00 Resp 16 03/15/24 10:00 BP 137/83 03/15/24 07:58 Pulse Ox 95 03/15/24 10:00 O2 Del Method Room Air 03/15/24 10:00 Discharge Plan Discharge Patient Disposition: Home Condition: Stable Prescriptions: New vancomycin 125 mg Capsule See Rx Instructions .ROUTE .COMPLEX 42 Days Qty: 84 0RF Rx Instructions: 1 tab 4 times daily for 2 weeks, 1 tab twice daily for 7 days, 1 tablet once daily for 7 days, 1 tab every 2 days for 2 weeks amlodipine 10 mg Tablet 10 mg PO DAILY 30 Days Qty: 30 0RF Continued Xanax 0.5 mg tablet 0.5 mg PO DAILY PRN (Reason: anxiety) 30 Days Qty: 30 0RF Rx Instructions: pharmacy records under external med history, show that this is to be taken once daily, however son states that patient takes it twice daily albuterol sulfate 90 mcg/actuation Hfa Aerosol Inhaler 2 puff INHALATION QID PRN (Reason: Shortness Of Breath) memantine-donepezil 7-10 mg capsule,sprinkle,ER 24hr 1 cap PO DAILY Qty: 60 4RF quetiapine 25 mg tablet 25 mg PO BEDTIME PRN (Reason: Sleep) Discontinued lisinopril 20 mg tablet 20 mg PO DAILY Qty: 30 5RF Hold Instructions: Resume on 03/05/24. potassium gluconate 595 mg (99 mg) tablet 595 mg PO DAILY Qty: 30 5RF omeprazole 40 mg Capsule,Delayed Release(Dr/Ec) 40 mg PO DAILY PRN (Reason: Acid Reflux) Patient Comments: son states that patient ran out and she hasn't taken it in a few days isosorbide mononitrate 30 mg tablet extended release 24 hr 15 mg PO DAILY magnesium 250 mg Tablet See Rx Instructions .ROUTE .COMPLEX Patient Comments: son states that patient takes a magnessium gummy, but he does not know the dose Rx Instructions: unknown dose; frequency is daily Discharge Orders: Discharge Order (Routine); Ordered 03/15/24 Ordered By: Jerrell Delatorre Other Ambulatory Orders: DME: [facility] (Order) Location: None Selected Ordered By: Jerrell Delatorre Referrals: [facility] [Other] (This is a [employer] that supply incontinence supplies and bill medicaid, but you have to call them first and start an account. Then they will send all the correct forms and request appropriate documentation from your provider to have covered. ) Tim Medina MD [Primary Care Provider] - 1-3 days Discharge Diet: Cardiac Discharge Activity: Resume usual activity Patient Instructions: Opioid Safety, Pain Management Discharge Attestations Time Spent in Discharge Care*: greater than 30 min Quality Metrics Clinical Quality Measures [ No reported AMI, CVA or VTE this stay] Coding Level of Care Code 69709 Total time (in minutes) for Discharge: 45 Diagnoses Recurrent colitis due to Clostridioides difficile A04.71 Bilateral lower extremity edema R60.0 Thrombocytopenia D69.6 Neutropenia D70.9
[2024-03-15] MEDS: FUROsemide 10 mg/mL SDV 2mL 20 MG IVP (11:23)
== END 2024-03-15 14:56 | disposition home health service (06) | DRG 371 ==
LOC: ER 18:26 → MEDSURG 19:47
PROVIDERS: Internal Medicine; Admitting Provider Family Medicine; Emergency Provider Emergency Medicine; PCP Family Medicine Adult Medicine; Visit Provider Family Medicine
DX: A04.71 Enterocolitis due to Clostridium difficile, recurrent (principal); G93.41 Metabolic encephalopathy; R60.0 Localized edema; D69.6 Thrombocytopenia, unspecified; D70.9 Neutropenia, unspecified; F03.90 Unspecified dementia, unspecified severity, without behavioral disturbance, psychotic disturbance, mood disturbance, and anxiety; I10 Essential (primary) hypertension; K21.9 Gastro-esophageal reflux disease without esophagitis; E86.0 Dehydration; F17.200 Nicotine dependence, unspecified, uncomplicated; K74.60 Unspecified cirrhosis of liver
CPT/HCPCS: 36415; 36416; 74022; 74176; 80048; 80053; 82962; 82977; 83605; 83690; 83735; 83880; 84100; 84145; 84443; 84484; 85025; 85610; 86140; 87324; 87493; 93005; 93306; 93970; 94664; 96374; 99285; J1940; J2470; J3475; J3480; J3490; J7030

== ENCOUNTER → 2024-03-18 11:55 | Outpatient (BNVA) | payer MEDICARE, MEDICAID, SELFPAY | PROVIDERS: PCP Family Medicine Adult Medicine | DX: E87.8 Other disorders of electrolyte and fluid balance, not elsewhere classified (principal) | CPT/HCPCS: 80053; 83880 ==

== ENCOUNTER 2024-03-19 10:56 | Inpatient (IN) | payer MEDICARE, MEDICAID, SELFPAY ==
[2024-03-19] VITALS (9 sets, daily range): BP systolic 117–130; BP diastolic 67–76; PULSE 76–86; RESP 15–19; TEMP 36.4–36.5; O2SAT 95–100; BMI 19.5
--- NOTE | 2024-03-19 11:05 | XR_ITS ---
WS: [id number] Portable AP upright chest, 03/19/2024 Clinical Data: weakness Comparison: Portable chest, 03/10/2024 Findings: No nodules, masses or effusions are seen. The heart is normal. The pulmonary vascularity is not increased. No pneumonia or pneumothorax is seen. Minimal atelectasis adjacent to the left cardia c border remains the same. The aortic arch and descending thoracic aorta show calcification and tortu osity. Monitor leads are on the chest wall. XR/XR chest 1V portable [id number] Impression: Atherosclerosis.
--- NOTE | 2024-03-19 11:06 | ECG_ITS ---
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1950 Requested By: Dwayne Guzman Order Number: [id number] Reading MD: ALVARO MAURICIO Measurements Intervals [place] Rate: 78 P: 120 OK: 179 QRS: 29 QRSD: 77 T: 100 QT: 374 QTc: 427 Interpretive Statements SINUS RHYTHM WITH MARKED SINUS ARRHYTHMIA LOW QRS VOLTAGE IN EXTREMITY LEADS [QRS DEFLECTION < 0.5 mV IN LIMB LEADS] ANTEROSEPTAL MYOCARDIAL INFARCTION , OF INDETERMINATE AGE [40+ ms Q WAVE IN V1-V4] Compared to ECG 03/10/2024 22:03:03 Low QRS voltage now present Atrial fibrillation no longer present Myocardial infarct finding still present Electronically Signed On 03-21-2024 18:12:49 CDT by ALVARO MAURICIO [id number]
--- NOTE | 2024-03-19 11:06 | CT_ITS ---
WS: [id number] CT HEAD NONCONTRAST HISTORY: Symptoms of acute stroke TECHNIQUE: Contiguous axial imaging performed through the brain. Bone and soft tissue windows. Sagitt al and coronal reformats reviewed. All CT scans at [facility] use at least one of these dose optimization techniques: automated exposure control; mA and/or kV adjustment per patient size (includ es targeted exams where dose is matched to clinical indication); or iterative reconstruction. DLP: 1073.20 mg COMPARISON: 01/21/2024 No acute intracranial hemorrhage, midline shift or mass effect. Moderate atrophy and moderate small vessel ischemic disease. No acute edema. Bilateral cerebellar atrophy also. Ventricles: Normal size with no hydrocephalus. Paranasal sinuses: Small bilateral air-fluid levels in the maxillary sinuses. RIGHT air-fluid level i s new. Mastoid air cells: Well pneumatized. Calvarium and scalp: Skull is intact with no soft tissue edema or swelling. CT/CT head thrombolytic 11026 IMPRESSION: 1. No acute intracranial hemorrhage or edema. 2. Moderate atrophy and small vessel disease is similar to the prior study. 3. New small RIGHT maxillary sinus air-fluid level.
[2024-03-19 11:19] LABS: Basophils # 0.1 10^3/uL (0.0-0.1); Basophils % 1.4 %; Eosinophils # 0.3 10^3/uL (0.0-0.8); Eosinophils % 4.5 %; Hematocrit 38.3 % (36-47); Lymphocytes # 1.7 10^3/uL (0.8-4.8); Lymphocytes % 25.3 %; Mean Corpuscular HGB Conc 33.9 g/dL (30-55); Mean Corpuscular Volume 91.2 fl (85-98); Mean Platelet Volume 11.2 fL (7.4-10.4); Monocytes # 0.5 10^3/uL (0.2-0.9); Monocytes % 7.4 %; Neutrophils # 3.96 10^3/uL (1.8-7.7); Nucleated Red Blood Cells % 0 %; Platelet Count 130 10^3/cmm (157-399); Red Cell Distribution Width 18.5 % (12.1-15.1)
[2024-03-19 11:23] LABS: Glucose Point of Care 155 mg/dL (70-110)
[2024-03-19 11:32] LABS: Alanine Aminotransferase 10 U/L (0-33); Alkaline Phosphatase 72 U/L (35-105); Anion Gap 11.5 (5-19); Aspartate Amino Transferase 29 U/L (0-32); Blood Urea Nitrogen 7 mg/dL (8-23); Calcium 8.5 mg/dL (8.5-10.5); Carbon Dioxide 27 mmol/L (22-29); Chloride 106 mmol/L (98-107); Creatinine Clr Calc Pharmacy 51.3211; Globulin 2.4 g/dL (1.3-4.6); Glucose 146 mg/dL (65-115); Lactic Sepsis W/Reflex 2.7 mmol/L (0.5-2.2); Lipase 35 U/L (13-60); Magnesium 1.4 mg/dL (1.7-2.3); Osmolality Calculated 293 mOsm/kg (285-295); Potassium 3.5 mmol/L (3.5-5.1); Sodium 141 mmol/L (136-145); Total Bilirubin 1.5 mg/dL (0.15-1.2); Total Protein 5.4 g/dL (6.6-8.7)
[2024-03-19 11:45] LABS: Slide Review Slide Review Perform
[2024-03-19 11:48] LABS: INR 1.36 (0.8-1.2)
--- NOTE | 2024-03-19 12:27 | PC.PHAR ---
patient is currently on medication for CDIFF! vancomycin 125mg
[2024-03-19] MEDS: sodium chloride 0.9% 1,000 ML 999 ML IV (12:39)
--- NOTE | 2024-03-19 12:39 | CT_ITS ---
WS: [id number] CT ANGIOGRAM CEREBRAL AND CAROTID ARTERIES HISTORY: weakness TECHNIQUE: CT angiogram is performed of the carotid and cerebral arteries. During arterial injection imaging is obtained from the skull vertex to the aortic arch in 1.25 mm imaging. Coronal and sagittal reformats are submitted. Additional multi planar reformats of the carotid and cerebral arteries are submitted, MIP imaging also reviewed. NASCET criteria utilized. [facility] CT [facility] at least one of these dose optimization techniques: automated exposure control; mA and/or kV adjust ment per patient size (includes targeted exams where dose is matched to clinical indication); or iter ative reconstruction. CONTRAST: Omnipaque 350; 100 mL IV. DLP: 868.80 mGy.cm COMPARISON: None available. Carotid Angiogram: Right carotid: Common carotid artery: Arises normally from the innominate artery. No significant plaque or stenosis. Internal carotid artery: Calcified plaque at the bifurcation. No stenosis. External carotid artery: Patent. Left carotid: Common carotid artery: Arises normally from the aorta. No significant plaque or stenosis. Internal carotid artery: Calcification at the bifurcation. No high-grade stenosis. External carotid artery: Patent. Right vertebral artery: Dominant RIGHT vertebral artery. Scattered plaque through the RIGHT vertebral artery but no occlusion. Left vertebral artery: Small caliber LEFT vertebral artery. Subclavian arteries: Mild atherosclerotic plaque. No occlusions. Upper thorax: Biapical pleural thickening. Emphysema. Stable 4 mm pulmonary nodule LEFT upper lobe. Thyroid gland: Atrophic thyroid gland. Osseous structures: Degenerative cervical spondylosis. 6 mm anterolisthesis of C3. Severe disc space narrowing at C3-4. C3-4 facets are fused. CEREBRAL ANGIOGRAM: Intracranial vertebral arteries: Dominant RIGHT vertebral artery. Basilar artery: No significant stenosis or occlusion. No aneurysm. Intracranial Internal carotid arteries: Calcified plaque through the petrous and cavernous carotid se gments. Stenosis approaching 50%. No occlusions. Middle cerebral arteries: Normal. Anterior cerebral arteries and ACOM: Hypoplastic LEFT A1 segment. No aneurysm. Posterior cerebral arteries and PCOM's: Normal. Dural venous sinuses are normally enhancing. Mastoid air cells: Normal. Paranasal sinuses: Small air-fluid level LEFT maxillary sinus. Mucous retention cyst RIGHT maxillary sinus. Calvarium: Normal. CT/CT angio headneck* [id number] IMPRESSION: 1. No high-grade cervical carotid artery stenosis. Small amount of plaque at t he bifurcations. Stenosis less than 50%. 2. Mild to moderate atherosclerotic plaque through the cavernous carotid arter ies. Stenosis near 50%. 3. No cerebral artery aneurysms or thrombus. 4. Hypoplastic LEFT A1 segment.
[2024-03-19 12:48] LABS: Amphetamines Screen Urine Negative (Negative); Barbiturates Screen Urine Negative (Negative); Benzodiazepines Screen Urine Positive (Negative); Cocaine Screen Urine Negative (Negative); Opiate Screen Urine Negative (Negative); PCP Screen Urine Negative (Negative); THC Screen Urine Positive (Negative)
--- NOTE | 2024-03-19 12:48 | CT_ITS ---
WS: [id number] CT ABDOMEN AND PELVIS WITH CONTRAST HISTORY: abd pain TECHNIQUE: Imaging performed of the abdomen and pelvis with IV contrast. Single phase imaging of the abdomen. Coronal and sagittal reformats are submitted. All CT scans at [facility] use at [address] one of these dose optimization techniques: automated exposure control; mA and/or kV adjustment per patient size (includes targeted exams where dose is matched to clinical indication); or iterative re construction. IV CONTRAST: Omnipaque 350; 100 mL IV. Oral contrast: No DLP: Not submitted. COMPARISON: 03/10/2024 Lower thorax: Hyperexpanded lungs with emphysema. Mild cardiomegaly. Moderate hiatal hernia. Liver/biliary system: Cirrhotic liver. No mass. Gallbladder: Cholelithiasis. Small stones are noted. Mild wall enhancement. Pancreas: Normal size pancreas and pancreatic duct. No adjacent inflammation. Spleen: Splenomegaly, 12.2 cm in length. Adrenal glands: Normal. Right kidney: Normal. Left kidney: Normal. Aorta: Moderate atherosclerosis with no aneurysm. Small amount of plaque at the origin of the celiac axis. Large collateral vessels in the upper abdomen from portal hypertension. Lymphadenopathy: None. Free fluid: Moderate amount of ascites. Similar to prior studies. GI tract: Nondistended stomach. There is mild hazy attenuation involving the small bowel and colon wh ich can be related to the ascites and cirrhosis. The wall enhancement and thickening does appear impr dread since 03/10/2024. Abdominal wall: Mild soft tissue anasarca. Pelvis: Urinary bladder is well distended with air. Ascites. Bones: Unremarkable. CT/CT abdomen pelvis w con* [id number] IMPRESSION: 1. Continued moderate ascites. 2. Portal venous hypertension with extensive venous collaterals in the upper a bdomen. 3. Cirrhotic liver. 4. Cholelithiasis. Mild gallbladder wall enhancement is probably related to th e ascites and liver disease. 5. Continued mild diffuse small bowel and colon submucosal edema but improved since 03/10/2024. This edema may be residual of C. difficile but can also be vis ualized with cirrhosis and the ascites.
[2024-03-19 13:05] LABS: Reflex Lactate Order REFLEX LACTIC ORDERD
--- NOTE | 2024-03-19 13:07 | ED_ITS ---
HPI - Neuro Symptoms/Deficit 2 General: Chief Complaint: Neuro Symptoms/Deficit Stated Complaint: RUQ abd pain, weakness, cdiff pos Time Seen by Provider: 03/19/24 11:04 Source: patient, family and EMS Mode of arrival: EMS Limitations: no limitations History of Present Illness: 73-year-old female who per EMS has been having increased weakness she has been seen here previously admitted for C. difficile with failure to thrive family states that she been increasingly weak over the last 3 days but states that this morning when she woke up that she was extremely weak I said that she was slurring her words and seemed to have a left-sided facial droop so the last time had seen her normal was at midnight currently patient has global weakness she has no noted facial droop or slurred speech but is confused here. She has not had any more diarrhea. Per family patient has been complaining of abdominal pain as well Related Data Previous Rx's Medication Instructions Recorded memantine ER 7 mg-donepezil 10 mg 1 cap PO DAILY #60 ea 10/29/23 capsule sprinkle,ext.release 24 hour alprazolam 0.5 mg tablet (Xanax) 0.5 mg PO DAILY PRN anxiety 30 03/02/24 days #30 tabs amlodipine 10 mg tablet 10 mg PO DAILY 30 days #30 tabs 03/15/24 vancomycin 125 mg capsule See Rx Instructions .Route 03/15/24 .COMPLEX 42 days #84 caps furosemide 20 mg tablet (Lasix) 20 mg PO QAM #2 tabs 03/18/24 Allergies Allergy/AdvReac Type Severity Reaction Status Date / Time Penicillins Allergy Unknown Verified 03/18/24 11:24 Review of Systems 2 General: Reports: ROS unobtainable due to mental status PFSH ED 2 PFSH: Medical History Hypomagnesemia Electrolyte abnormality Coronary stent patent Depression Hypertension GERD (gastroesophageal reflux disease) Failure to thrive Altered mental status Dementia Hyperbilirubinemia Hypercalcemia Hypokalemia Surgical History History of cardiac cath Family History Father Heart disease Mother Cancer Social History Smoking and tobacco/nicotine status: current every day tobacco/nicotine user Quit status (tobacco/nicotine): not considering quitting Alcohol intake: former Substance/Drug Use: current Substance/Drug use frequency: few times a week NIH stroke score 2 NIHSS: Level Of Consciousness - 1a: 0 Level Of Consciousness Questions - 1b: Both Correct Level Of Consciousness Commands - 1c: Both Correct Best Gaze - 2: Normal Visual Culp - 3: No Visual Loss Facial Palsy - 4: N ormal Motor Arm Right - 5: No Drift Motor Arm Left - 5: No Drift Motor Leg Right - 6: No Drift Motor Leg Left - 6: No Drift Limb Ataxia - 7: A bsent Sensory - 8: Normal Best Language - 9: No Aphasia Dysarthia - 10: Normal Extinction And Inattention - 11: 0 Score: Total Score: 0 Physical Exam 2 Const: COMMON NORMALS: negative for patient oriented x3 GENERAL APPEARANCE: in distress and ill appearing HENMT: COMMON NORMALS: normocephalic and atraumatic HEAD & SCALP: n ormocephalic and atraumatic Eye: COMMON NORMALS: conjunctivae normal CONJUNCTIVA: Yes conjunctivae normal Neck/C-Spine: COMMON NORMALS: full ROM and supple Chest: COMMONS NORMALS: normal inspection of the chest Resp: COMMON NORMALS: normal respiratory effort, No retractions, No use of accessory muscles and clear to auscultation bilaterally AUSCULTATION: clear to auscultation bilaterally Cardio: COMMON NORMALS: regular rate, regular rhythm and No murmurs present (Cardio) RATE: regular rate RHYTHM: regular rhythm GI: COMMON NORMALS: Normal to inspection, nondistended, normoactive bowel sounds present, Soft to palpation, non-tender and no masses PALPATION: Yes Soft to palpation Extremity: COMMON NORMALS: normal to inspection and full ROM Neuro: COMMON NORMALS: moves all extremities and no focal motor deficits; negative for patient oriented x3 Psych: COMMON NORMALS: Normal thought process present and cooperative T HOUGHT PROCESS: Normal thought process present Skin: COMMON NORMALS: no rashes or lesions noted and no wounds GENERAL SKIN EXAM: no rashes or lesions noted Course 2 Vital Signs: Vital signs: Vital Signs Temperature 97.7 F 03/19/24 11:09 Pulse Rate 79 03/19/24 14:30 Respiratory Rate 19 H 03/19/24 14:30 Blood Pressure 130/74 03/19/24 14:30 Pulse Oximetry 100 03/19/24 14:30 Oxygen Delivery Me thod Room Air 03/19/24 11:09 MDM - Neuro Symptoms/Deficit Medical Decision Making Patient presents here with generalized weakness also with altered mental status. She had some questionable slurred speech facial droop at home none noted is here head CT here is normal her last known normal was midnight she is out of the window for any lytics. CTA showed no thrombus. I spoke to the hospital admit for her weakness. Medical Records I reviewed the patient's medical records. Lab Data I reviewed the patient's lab results. 03/19/24 10:33 03/19/24 10:33 Radiology Impressions Chest X-Ray 03/19/24 11:05 Impression: Atherosclerosis. Head CT 03/19/24 11:06 IMPRESSION: 1. No acute intracranial hemorrhage or edema. 2. Moderate atrophy and small vessel disease is similar to the prior study. 3. New small RIGHT maxillary sinus air-fluid level. Head/Neck CTA 03/19/24 12:39 IMPRESSION: 1. No high-grade cervical carotid artery stenosis. Small amount of plaque at the bifurcations. Stenosis less than 50%. 2. Mild to moderate atherosclerotic plaque through the cavernous carotid arteries. Stenosis near 50%. 3. No cerebral artery aneurysms or thrombus. 4. Hypoplastic LEFT A1 segment. Abdomen/Pelvis CT 03/19/24 12:48 IMPRESSION: 1. Continued moderate ascites. 2. Portal venous hypertension with extensive venous collaterals in the upper abdomen. 3. Cirrhotic liver. 4. Cholelithiasis. Mild gallbladder wall enhancement is probably related to the ascites and liver disease. 5. Continued mild diffuse small bowel and colon submucosal edema but improved since 03/10/2024. This edema may be residual of C. difficile but can also be visualized with cirrhosis and the ascites. Laboratory Results WBC 6.60 10^3/uL (3.29-11.43) 03/19/24 10:33 RBC 4.20 10^6/uL (3.85-5.65) 03/19/24 10:33 Hgb 13.00 g/dL (11.27-16.99) 03/19/24 10:33 Hct 38.3 % (36-47) 03/19/24 10:33 MCV 91.2 fl (85-98) 03/19/24 10:33 MCH 31.0 pg (27-33) 03/19/24 10:33 MCHC 33.9 g/dL (30-55) 03/19/24 10:33 RDW 18.5 % (12.1-15.1) H 03/19/24 10:33 Plt Count 130 10^3/cmm (157-399) L 03/19/24 10:33 MPV 11.2 fL (7.4-10.4) H 03/19/24 10:33 Neut % (Auto) 60.0 % 03/19/24 10:33 Lymph % (Auto) 25.3 % 03/19/24 10:33 [place] % (Auto) 7.4 % 03/19/24 10:33 Eos % (Auto) 4.5 % 03/19/24 10:33 Baso % (Auto) 1.4 % 03/19/24 10:33 Neut # (Auto) 3.96 10^3/uL (1.8-7.7) 03/19/24 10:33 Lymph # (Auto) 1.7 10^3/uL (0.8-4.8) 03/19/24 10:33 [place] # (Auto) 0.5 10^3/uL (0.2-0.9) 03/19/24 10:33 Eos # (Auto) 0.3 10^3/uL (0.0-0.8) 03/19/24 10:33 Baso # (Auto) 0.1 10^3/uL (0.0-0.1) 03/19/24 10:33 Nucleated RBC % (auto) 0 % 03/19/24 10:33 Nucleated RBCs # 0.0 /100WBC 03/19/24 10:33 PT 17.20 SECONDS (12.1-14.9) H 03/19/24 10:33 INR 1.36 (0.8-1.2) H 03/19/24 10:33 APTT 31.0 SECONDS (23.9-36.7) 03/19/24 10:33 Sodium 141 mmol/L (136-145) 03/19/24 10:33 Potassium 3.5 mmol/L (3.5-5.1) 03/19/24 10:33 Chloride 106 mmol/L (98-107) 03/19/24 10:33 Carbon Dioxide 27 mmol/L (22-29) 03/19/24 10:33 Anion Gap 11.5 (5-19) 03/19/24 10:33 BUN 7 mg/dL (8-23) L 03/19/24 10:33 Creatinine 0.7 mg/dL (0.5-0.9) 03/19/24 10:33 GFR Calculation Not Reportable 03/19/24 10:33 Glucose 146 mg/dL (65-115) H 03/19/24 10:33 POC Glucose 155 mg/dL (70-110) H 03/19/24 11:15 Calculated Osmolality 293 mOsm/kg (285-295) 03/19/24 10:33 Lactic Acid 2.7 mmol/L (0.5-2.2) H 03/19/24 10:33 Lactic Acid (Sepsis) 2.3 mmol/L (0.5-2.2) H 03/19/24 14:05 Calcium 8.5 mg/dL (8.5-10.5) 03/19/24 10:33 Magnesium 1.4 mg/dL (1.7-2.3) L 03/19/24 10:33 Total Bilirubin 1.5 mg/dL (0.15-1.2) H 03/19/24 10:33 AST 29 U/L (0-32) 03/19/24 10:33 ALT 10 U/L (0-33) 03/19/24 10:33 Alkaline Phosphatase 72 U/L (35-105) 03/19/24 10:33 Total Protein 5.4 g/dL (6.6-8.7) L 03/19/24 10:33 Albumin 3.0 g/dL (3.5-5.2) L 03/19/24 10:33 Globulin 2.4 g/dL (1.3-4.6) 03/19/24 10:33 Lipase 35 U/L (13-60) 03/19/24 10:33 Urine Color Yellow (Yellow) 03/19/24 12:21 Urine Appearance Slightly cloudy (CLEAR) 03/19/24 12:21 Urine pH TNP 03/19/24 12:21 Ur Specific [place] TNP 03/19/24 12:21 Urine Protein TNP 03/19/24 12:21 Urine Glucose (UA) TNP 03/19/24 12:21 Urine Ketones TNP 03/19/24 12:21 Urine Blood TNP 03/19/24 12:21 Urine Nitrate TNP 03/19/24 12:21 Urine Bilirubin TNP 03/19/24 12:21 Urine Urobilinogen TNP 03/19/24 12:21 Ur Leukocyte Esterase TNP 03/19/24 12:21 Urine RBC Rare /hpf (0-2) 03/19/24 12:21 Urine WBC Rare /hpf (0-5) 03/19/24 12:21 Ur Squamous Epith Cells None /hpf (0-5) 03/19/24 12:21 Calcium Oxalate Crystal 5-10 /hpf H 03/19/24 12:21 Amorphous Sediment Not Reportable 03/19/24 12:21 Urine Bacteria Trace /hpf (NONE) 03/19/24 12:21 Urine Opiates Screen Negative ng/mL (Negative) 03/19/24 12:21 Ur Barbiturates Screen Negative ng/mL (Negative) 03/19/24 12:21 Ur Phencyclidine Scrn Negative ng/mL (Negative) 03/19/24 12:21 Ur Amphetamines Screen Negative ng/mL (Negative) 03/19/24 12:21 U Benzodiazepines Scrn Positive ng/mL (Negative) H 03/19/24 12:21 Urine Cocaine Screen Negative ng/mL (Negative) 03/19/24 12:21 U Marijuana (THC) Screen Positive ng/mL (Negative) H 03/19/24 12:21 All radiology interpretation(s) finalized by discharge EKG Data EKG 1: I personally reviewed and interpreted this EKG as follows: EKG interpretation date: 03/19/24 EKG interpretation time: 11:39 Interpretation: nsr hr [address] or t wave abnormalities qrs 77 qtc 407 Discharge Plan Discharge Patient Disposition: Admitted As Inpatient Clinical Impression: Generalized weakness Altered mental status Qualifiers: Altered mental status type: disorientation Qualified Code(s): R41.0 - Disorientation, unspecified Condition: Stable Prescriptions: No Action furosemide [Lasix] 20 mg tablet 20 mg PO QAM Qty: 2 0RF Xanax 0.5 mg tablet 0.5 mg PO DAILY PRN (Reason: anxiety) 30 Days Qty: 30 0RF Rx Instructions: pharmacy records under external med history, show that this is to be taken once daily, however son states that patient takes it twice daily memantine-donepezil 7-10 mg capsule,sprinkle,ER 24hr 1 cap PO DAILY Qty: 60 4RF vancomycin 125 mg Capsule See Rx Instructions .ROUTE .COMPLEX 42 Days Qty: 84 0RF Rx Instructions: 1 tab 4 times daily for 2 weeks, 1 tab twice daily for 7 days, 1 tablet once daily for 7 days, 1 tab every 2 days for 2 weeks amlodipine 10 mg Tablet 10 mg PO DAILY 30 Days Qty: 30 0RF Referrals: Tim Medina MD [Primary Care Provider] - Coding Level of Care Code ED 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
[2024-03-19] MEDS: iohexol 350 mg/mL 500 mL Btl (per mL) IV (13:17)
[2024-03-19 13:19] LABS: Urine Appearance Slightly Cloudy (CLEAR); Urine Color Yellow (Yellow)
[2024-03-19 13:21] LABS: Add Urine Culture? No; Add Urine Microscopic? YES; Bacteria Urine TRACE /hpf; RBC Urine RARE /hpf (0-2); UA Manual Slide Review YES; UA Slide Review UA Slide Review Perf; WBC Urine RARE /hpf (0-5)
--- NOTE | 2024-03-19 14:26 | PC.NURSE ---
Just cleaned patient up, changed her bedding and her brief, she had urinated several times in her brief.
[2024-03-19 14:30] LABS: Lactic Acid level (Lactate) 2.3 mmol/L (0.5-2.2)
--- NOTE | 2024-03-19 14:56 | P.HP_ITS ---
Providers/Chief Complaint 2 Primary Care Provider: Tim Medina MD Chief Complaint: RUQ abd pain, weakness, cdiff pos History of Present Illness Sandra Gamboa is a 73 year old female who lives with her son, send brought in because she was confused he was concerned that she is having a stroke he noted some facial droop and confusion. She is not showing any sign of stroke, imaging consistent with cirrhosis, patient is able to tell me that she lives with her son and takes Lasix. As per the son they were about to start Lasix today but did not start yet. Patient not endorsing dysuria, chest pain shortness of breath fever nausea vomiting. Review of Systems 2 Const: Denies: fever(s) Eyes: Denies: change in vision ENMT: Denies: throat pain Card: Denies: chest pain Resp: Denies: dyspnea Medications/Allergies Home Medications Medication Instructions Recorded Confirmed Last Taken Type memantine ER 7 mg-donepezil 10 mg 1 cap PO DAILY #60 ea 10/29/23 03/19/24 03/19/24 Rx capsule sprinkle,ext.release 24 hour alprazolam 0.5 mg tablet (Xanax) 0.5 mg PO DAILY PRN anxiety 30 03/02/24 03/19/24 03/19/24 Rx days #30 tabs amlodipine 10 mg tablet 10 mg PO DAILY 30 days #30 tabs 03/15/24 03/19/24 03/19/24 Rx vancomycin 125 mg capsule See Rx Instructions .Route 03/15/24 03/19/24 03/19/24 Rx .COMPLEX 42 days #84 caps furosemide 20 mg tablet (Lasix) 20 mg PO QAM #2 tabs 03/18/24 03/19/24 03/19/24 Rx Allergies Allergy/AdvReac Type Severity Reaction Status Date / Time Penicillins Allergy Unknown Verified 03/18/24 11:24 PFSH Acute 2 PFSH: Medical History Hypomagnesemia Electrolyte abnormality Coronary stent patent Depression Hypertension GERD (gastroesophageal reflux disease) Failure to thrive Altered mental status Dementia Hyperbilirubinemia Hypercalcemia Hypokalemia Surgical History History of cardiac cath Family History Father Heart disease Mother Cancer Social History Smoking and tobacco/nicotine status: current every day tobacco/nicotine user Quit status (tobacco/nicotine): not considering quitting Alcohol intake: former Substance/Drug Use: current Substance/Drug use frequency: few times a week Vitals/I&O/Wt Last Vital Signs Temp 97.7 F 03/19/24 11:09 Pulse 79 03/19/24 14:30 Resp 19 H 03/19/24 14:30 BP 130/74 03/19/24 14:30 Pulse Ox 100 03/19/24 14:30 O2 Del Method Room Air 03/19/24 11:09 Weight last 48 hrs Weight 51.71 kg Physical Exam 2 Narrative: Patient able to answer my question appropriately Supine in her bed Lower extremity swelling 3+ Hemodynamically stable Currently room air Abdomen soft Complaining of feeling cold S1, S2 Data 03/19/24 10:33 03/19/24 10:33 A&P Assessment and plan (1) Liver cirrhosis: (2) Depression: Qualifiers: Depression Type: persistent depressive disorder Qualified Code(s): F 34.1 - Dysthymic disorder (3) Failure to thrive: Qualifiers: Failure to thrive age range: in adult Qualified Code(s): R62.7 - Adult failure to thrive (4) GERD (gastroesophageal reflux disease): Qualifiers: Esophagitis presence: without esophagitis Qualified Code(s): K21.9 - Gastro-esophageal reflux disease without esophagitis (5) Generalized weakness: (6) C. difficile diarrhea: (7) Dementia: Qualifiers: Dementia behavioral or psychological symptom: with anxiety Dementia severity: severe Dementia type: associated with other underlying disease Qualified Code(s): F02.C4 - Dementia in other diseases classified elsewhere, severe, with anxiety (8) Hypomagnesemia: Plan Liver cirrhosis with hepatic encephalopathy Check ammonia level Add lactulose and rifaximin Concern for UTI will give 1 dose of ceftriaxone for now Liver cirrhosis, etiology unknown I would not pursue liver biopsy at this point Anasarca will give her IV Lasix C. difficile diarrhea: She is on tapering regimen continue vancomycin p.o. regimen for now DVT prophylaxis added Abnormal D-dimer requested CT chest and venous Doppler rule out PE however D- dimer could be related to underlying liver cirrhosis Abnormal lactic acid, could be related to decreased clearance because of liver abnormality Son is wanting to take her home once she is more stable, will request physical therapy Full code DVT prophylaxis added Failure to thrive Attestations 2 Medical Necessity Statement*: Discharge within 48 hours if remains stable Diagnoses Liver cirrhosis K74.60 Persistent depressive disorder F34.1 Depression Type: persistent depressive disorder Failure to thrive in adult R62.7 Failure to thrive age range: in adult Gastroesophageal reflux disease without esophagitis K21.9 Esophagitis presence: without esophagitis Generalized weakness R53.1 C. difficile diarrhea A04.72 Severe dementia associated with other underlying disease, with anxiety F02.C4 Dementia behavioral or psychological symptom: with anxiety Dementia severity: severe Dementia type: associated with other underlying disease Hypomagnesemia E83.42
[2024-03-19] MEDS: FUROsemide 10 mg/mL SDV 10mL 20 MG IVP (15:54)
[2024-03-19] MEDS: heparin 5,000 unit/mL INJ 1 mL 5000 UNIT SUBCUT (15:54)
[2024-03-19] MEDS: cefTRIAXone 1,000 MG in sodium chloride 0.9% (plus) 50 ML 100 MG IV (15:54)
[2024-03-19 16:17] LABS: D Dimer 3.61 ug/mLFEU (0-0.59)
[2024-03-19 16:25] LABS: Thyroid Stimulating Hormone 5.05 uIU/mL (0.27-4.20)
[2024-03-19 16:37] LABS: Estmated Average Glucose 71; Hemoglobin A1C 4.1 % (4.0-6.0)
--- NOTE | 2024-03-19 16:44 | USR_ITS ---
PROCEDURE INFORMATION: Exam: US Duplex Lower Extremity Veins, Bilateral Exam date and time: 03/19/2024 5:22 PM Age: 73 years old Clinical indication: Screening exam; Elevated d-dimer; Additional info: Elevated d dimer TECHNIQUE: Imaging protocol: Real-time duplex ultrasound of the bilateral extremities with 2-D mckinnon scale, color Doppler flow and spectral waveform analysis including responses to compression and other maneuvers (when performed) with image documentation. Complete exam focused on the lower extremity veins. COMPARISON: US CV venous duplex [facility] [id number] 03/10/2024 6:19 PM FINDINGS: Right deep veins: Unremarkable. The common femoral, femoral, proximal profunda femoral, popliteal, posterior tibial and peroneal veins are patent without thrombus. Normal Doppler waveforms. Normal compressibility and/or augmentation response. Left deep veins: Unremarkable. The common femoral, femoral, proximal profunda femoral, popliteal, posterior tibial and peroneal veins are patent without thrombus. Normal Doppler waveforms. Normal compressibility and/or augmentation response. Superficial veins: Greater saphenous veins at the saphenofemoral junctions are patent bilaterally without thrombus. Soft tissues: Subcutaneous edema in the calves. US/CV venous duplex [facility] [id number] IMPRESSION: No sonographic evidence of deep venous thrombosis.
[2024-03-19] MEDS: pantoprazole 40 mg SDV IVP (17:23)
[2024-03-19] MEDS: vancomycin 125 mg Capsule PO ×2 (17:23→20:37)
[2024-03-19] MEDS: rifaximin 200 mg Tablet 600 MG PO (17:59)
[2024-03-19] MEDS: lactulose oral liq 20 gm/30 mL UDC PO (18:00)
[2024-03-19 20:09] LABS: Ammonia 45 umol/L (11-51)
[2024-03-19 22:32] LABS: Tumor Marker Alpha Fetoprotein 13.3 ng/mL (0-8.3)
[2024-03-20] VITALS (8 sets, daily range): BP systolic 113–135; BP diastolic 67–86; PULSE 92–98; RESP 16–18; TEMP 36.6–37.2; O2SAT 93–97
[2024-03-20] MEDS: heparin 5,000 unit/mL INJ 1 mL 5000 UNIT SUBCUT ×2 (04:09→15:52)
[2024-03-20 05:49] LABS: Basophils # 0.1 10^3/uL (0.0-0.1); Basophils % 1.1 %; Eosinophils # 0.2 10^3/uL (0.0-0.8); Eosinophils % 3.2 %; Hematocrit 33.3 % (36-47); Lymphocytes % 15.6 %; Mean Corpuscular HGB Conc 33.9 g/dL (30-55); Mean Corpuscular Hemoglobin 30.5 pg (27-33); Mean Platelet Volume 11.3 fL (7.4-10.4); Monocytes # 0.6 10^3/uL (0.2-0.9); Monocytes % 9.6 %; Neutrophils # 4.64 10^3/uL (1.8-7.7); Neutrophils % 69.7 %; Nucleated Red Blood Cells % 0 %; Platelet Count 130 10^3/cmm (157-399); Red Cell Distribution Width 18.1 % (12.1-15.1); White Blood Count 6.65 10^3/uL (3.29-11.43)
[2024-03-20 06:06] LABS: Anion Gap 11.2 (5-19); Blood Urea Nitrogen 7 mg/dL (8-23); Calcium 8.2 mg/dL (8.5-10.5); Carbon Dioxide 28 mmol/L (22-29); Chloride 110 mmol/L (98-107); Creatinine Clr Calc Pharmacy 52.3651; Glucose 92 mg/dL (65-115); Magnesium 1.3 mg/dL (1.7-2.3); Osmolality Calculated 300 mOsm/kg (285-295); Phosphorus 3.5 mg/dL (2.5-4.5); Potassium 3.2 mmol/L (3.5-5.1); Sodium 146 mmol/L (136-145)
[2024-03-20 08:45] LABS: Free T4 Free Thyroxine 1.06 ng/dL (0.82-1.77)
[2024-03-20] MEDS: rifaximin 200 mg Tablet 600 MG PO ×2 (09:10→17:10)
[2024-03-20] MEDS: donepezil 5 MG Tablet 10 MG PO (09:11)
[2024-03-20] MEDS: memantine 5 mg tablet 7.5 MG PO (09:11)
[2024-03-20] MEDS: lactulose oral liq 20 gm/30 mL UDC PO (09:15)
[2024-03-20] MEDS: sennosides-docusate Tablet 1 TAB PO (09:15)
--- NOTE | 2024-03-20 09:44 | P.PN_ITS ---
Subjective 2 Subjective: Patient and both surprised that there is diagnosis of liver cirrhosis Her ammonia level is not high She is suffering from diarrhea secondary to C. difficile Discontinue lactulose Patient is getting 7-8 episodes of diarrhea so far at risk of dehydration discontinue IV Lasix Son at the bedside, No signs of DVT or PE D-dimer was likely high due to liver disease AFP marker also high due to liver disease at this point in my opinion Vitals/I&O/Wt Last Vital Signs Temp 98.5 F 03/20/24 07:40 Pulse 92 03/20/24 07:40 Resp 16 03/20/24 07:40 BP 118/68 03/20/24 07:40 Pulse Ox 94 03/20/24 07:40 O2 Del Method Room Air 03/20/24 07:40 03/19/24 03/20/24 03/20/24 22:59 06:59 14:59 Intake Total 1050 / 1050 Balance 1050 / 1050 Weight last 48 hrs Weight 54.431 kg Weight 51.71 kg Weight 51.71 kg Physical Exam 2 Narrative: Awake and alert No signs of encephalopathy GCS 15 Signs of dehydration present Abdomen soft nontender Pleasant cough Son at the bedside Hemodynamically stable Currently on room air Lower extremity edema Data 03/20/24 05:27 03/20/24 05:27 A&P Assessment and plan (1) Liver cirrhosis: (2) Depression: Qualifiers: Depression Type: persistent depressive disorder Qualified Code(s): F 34.1 - Dysthymic disorder (3) Failure to thrive: Qualifiers: Failure to thrive age range: in adult Qualified Code(s): R62.7 - Adult failure to thrive (4) GERD (gastroesophageal reflux disease): Qualifiers: Esophagitis presence: without esophagitis Qualified Code(s): K21.9 - Gastro-esophageal reflux disease without esophagitis (5) Generalized weakness: (6) C. difficile diarrhea: (7) Dementia: Qualifiers: Dementia behavioral or psychological symptom: with anxiety Dementia severity: severe Dementia type: associated with other underlying disease Qualified Code(s): F02.C4 - Dementia in other diseases classified elsewhere, severe, with anxiety (8) Hypomagnesemia: Plan Liver cirrhosis with hepatic encephalopathy Discontinue lactulose, ammonia level is normal AFP is likely high due to liver disease Concern for UTI will give 1 dose of ceftriaxone for now Liver cirrhosis, etiology unknown I would not pursue liver biopsy at this point Anasarca holding off on Lasix because she is getting 7-8 episodes of diarrhea a day C. difficile diarrhea: She is on tapering regimen continue vancomycin p.o. regimen for now, will add cholestyramine DVT prophylaxis added Abnormal D-dimer related to liver disease no signs of PE or DVT Abnormal lactic acid, could be related to decreased clearance because of liver abnormality Son is wanting to take her home once she is more stable, will request physical therapy: At risk of dehydration will like to monitor her till Saturday Patient and son both against long term placement Full code DVT prophylaxis added Failure to thrive Attestations 2 Medical Necessity Statement*: Continue medical management Diagnoses Liver cirrhosis K74.60 Persistent depressive disorder F34.1 Depression Type: persistent depressive disorder Failure to thrive in adult R62.7 Failure to thrive age range: in adult Gastroesophageal reflux disease without esophagitis K21.9 Esophagitis presence: without esophagitis Generalized weakness R53.1 C. difficile diarrhea A04.72 Severe dementia associated with other underlying disease, with anxiety F02.C4 Dementia behavioral or psychological symptom: with anxiety Dementia severity: severe Dementia type: associated with other underlying disease Hypomagnesemia E83.42
[2024-03-20] MEDS: cholestyramine powder 4 gm Pkt PO ×2 (10:30→17:10)
[2024-03-20] MEDS: potassium chloride ER 20 mEq Tablet PO (10:30)
[2024-03-20] MEDS: vancomycin 125 mg Capsule PO ×3 (10:30→19:59)
[2024-03-20] MEDS: ALPRAZolam 0.5 mg Tablet PO (10:37)
[2024-03-20] MEDS: magnesium oxide 400 mg tablet PO (17:10)
[2024-03-21] VITALS: BP 125/72; PULSE 93; RESP 15; TEMP 37.4; O2SAT 93
[2024-03-21] MEDS: heparin 5,000 unit/mL INJ 1 mL 5000 UNIT SUBCUT ×2 (02:36→15:56)
[2024-03-21 04:00] VITALS: BP 145/85; PULSE 100; RESP 15; TEMP 36.8; O2SAT 90
[2024-03-21] MEDS: acetaminophen 500 mg Tablet PO (04:10)
--- NOTE | 2024-03-21 04:56 | P.PN_ITS ---
Subjective 2 Subjective: Added cholestyramine Patient continued to have diarrhea Hemodynamically stable On room air Lactulose discontinued Continue rifaximin Free T4 is normal abnormal TSH noted Vitals/I&O/Wt Last Vital Signs Temp 97.8 F 03/20/24 15:00 Pulse 96 03/20/24 15:00 Resp 16 03/20/24 15:00 BP 135/86 03/20/24 15:00 Pulse Ox 97 03/20/24 11:31 O2 Del Method Room Air 03/20/24 11:31 03/20/24 03/20/24 03/20/24 06:59 14:59 22:59 Intake Total 830 / 830 Balance 830 / 830 Weight last 48 hrs Weight 54.431 kg Weight 51.71 kg Weight 51.71 kg Physical Exam 2 Narrative: Awake and alert GCS 15 Lethargic and fatigued Hemodynamically stable Abdomen soft No active confusion No active focal deficit Data 03/20/24 05:27 03/20/24 05:27 A&P Assessment and plan (1) Liver cirrhosis: (2) Depression: Qualifiers: Depression Type: persistent depressive disorder Qualified Code(s): F 34.1 - Dysthymic disorder (3) Failure to thrive: Qualifiers: Failure to thrive age range: in adult Qualified Code(s): R62.7 - Adult failure to thrive (4) GERD (gastroesophageal reflux disease): Qualifiers: Esophagitis presence: without esophagitis Qualified Code(s): K21.9 - Gastro-esophageal reflux disease without esophagitis (5) Generalized weakness: (6) C. difficile diarrhea: (7) Dementia: Qualifiers: Dementia behavioral or psychological symptom: with anxiety Dementia severity: severe Dementia type: associated with other underlying disease Qualified Code(s): F02.C4 - Dementia in other diseases classified elsewhere, severe, with anxiety (8) Hypomagnesemia: Plan C. difficile diarrhea continue p.o. vancomycin Added cholestyramine Discontinue lactulose Likely will be discharged on Saturday No need of IV antibiotics at this point Patient does not want a [place] Currently hemodynamically stable DVT prophylaxis on board Diuretics on hold as well Attestations 2 Medical Necessity Statement*: Plan to discharge on Saturday Diagnoses Liver cirrhosis K74.60 Persistent depressive disorder F34.1 Depression Type: persistent depressive disorder Failure to thrive in adult R62.7 Failure to thrive age range: in adult Gastroesophageal reflux disease without esophagitis K21.9 Esophagitis presence: without esophagitis Generalized weakness R53.1 C. difficile diarrhea A04.72 Severe dementia associated with other underlying disease, with anxiety F02.C4 Dementia behavioral or psychological symptom: with anxiety Dementia severity: severe Dementia type: associated with other underlying disease Hypomagnesemia E83.42
[2024-03-21 06:58] LABS: Alanine Aminotransferase 8 U/L (0-33); Albumin Level 2.9 g/dL (3.5-5.2); Alkaline Phosphatase 72 U/L (35-105); Anion Gap 11.4 (5-19); Aspartate Amino Transferase 27 U/L (0-32); Blood Urea Nitrogen 9 mg/dL (8-23); Calcium 8.5 mg/dL (8.5-10.5); Carbon Dioxide 27 mmol/L (22-29); Chloride 105 mmol/L (98-107); Creatinine Clr Calc Pharmacy 52.7653; Globulin 2.8 g/dL (1.3-4.6); Glucose 101 mg/dL (65-115); Osmolality Calculated 289 mOsm/kg (285-295); Potassium 3.4 mmol/L (3.5-5.1); Sodium 140 mmol/L (136-145); Total Bilirubin 1.3 mg/dL (0.15-1.2); Total Protein 5.7 g/dL (6.6-8.7)
[2024-03-21 08:00] VITALS: BP 130/87; PULSE 86; RESP 15; TEMP 36.8; O2SAT 92
[2024-03-21] MEDS: magnesium oxide 400 mg tablet PO ×2 (08:56→15:56)
[2024-03-21] MEDS: rifaximin 200 mg Tablet 600 MG PO ×2 (08:56→15:58)
[2024-03-21] MEDS: cholestyramine powder 4 gm Pkt PO ×2 (08:56→15:56)
[2024-03-21] MEDS: donepezil 5 MG Tablet 10 MG PO (08:57)
[2024-03-21] MEDS: vancomycin 125 mg Capsule PO ×4 (08:57→21:23)
[2024-03-21] MEDS: potassium chloride ER 20 mEq Tablet 40 MEQ PO (08:57)
[2024-03-21] MEDS: ALPRAZolam 0.5 mg Tablet PO ×2 (08:57→17:48)
[2024-03-21] MEDS: memantine 5 mg tablet 7.5 MG PO (08:58)
[2024-03-21 11:38] VITALS: BP 117/78; PULSE 85; RESP 16; TEMP 36.8; O2SAT 94
[2024-03-21 16:00] VITALS: BP 138/83; PULSE 82; RESP 16; TEMP 36.4; O2SAT 97
--- NOTE | 2024-03-21 17:11 | XRR_ITS ---
PROCEDURE INFORMATION: Exam: XR Abdomen Exam date and time: 03/21/2024 9:19 PM Age: 73 years old Clinical indication: Bloating; Patient HX: Abdominal distention; C-diff TECHNIQUE: Imaging protocol: Radiologic exam of the abdomen. Views: Frontal supine view of the abdomen. 1 View. COMPARISON: CT abdomen pelvis w con* [id number] 03/19/2024 12:45 PM FINDINGS: Gastrointestinal tract: Multiple prominent gas-filled segments of bowel without definitive plain film evidence of large or small bowel obstruction. Small bowel segments measure up to 2.1 cm. No evidence of colonic distension. Bones/joints: Unremarkable. XR/XR KUB portable [id number] IMPRESSION: No plain film evidence of acute intra-abdominal or pelvic process.
[2024-03-21 20:00] VITALS: BP 135/82; PULSE 105; RESP 18; TEMP 38.4; O2SAT 90
[2024-03-22] VITALS: BP 117/71; PULSE 94; RESP 20; TEMP 37.6; O2SAT 90
[2024-03-22] MEDS: heparin 5,000 unit/mL INJ 1 mL 5000 UNIT SUBCUT ×2 (02:46→14:04)
[2024-03-22 04:00] VITALS: BP 135/89; PULSE 89; RESP 18; TEMP 37.1; O2SAT 90
[2024-03-22 04:55] LABS: Alanine Aminotransferase 8 U/L (0-33); Albumin Level 2.9 g/dL (3.5-5.2); Alkaline Phosphatase 61 U/L (35-105); Anion Gap 10.3 (5-19); Aspartate Amino Transferase 25 U/L (0-32); Blood Urea Nitrogen 11 mg/dL (8-23); Calcium 8.3 mg/dL (8.5-10.5); Carbon Dioxide 25 mmol/L (22-29); Chloride 106 mmol/L (98-107); Globulin 2.5 g/dL (1.3-4.6); Glucose 96 mg/dL (65-115); Osmolality Calculated 283 mOsm/kg (285-295); Potassium 4.3 mmol/L (3.5-5.1); Sodium 137 mmol/L (136-145); Total Bilirubin 1.5 mg/dL (0.15-1.2); Total Protein 5.4 g/dL (6.6-8.7)
--- NOTE | 2024-03-22 07:15 | USR_ITS ---
PROCEDURE INFORMATION: Exam: US Abdomen, Limited; Right Upper Quadrant Exam date and time: 03/22/2024 7:32 AM Age: 73 years old Clinical indication: Screening exam; Other: Evaluate gall bladder TECHNIQUE: Imaging protocol: Real time ultrasound of the abdomen with image documentation. Limited exam focused on the right upper quadrant. Total images: 84 COMPARISON: US gall bladder [id number] 02/17/2024 10:12 PM FINDINGS: Limitations: The financial recruiter reported that the examination was performed with technical difficulty. Liver: No focal hepatic lesion is identified sonographically. There is coarsened hepatic echotexture with nodular surface contour suggestive of cirrhosis. The liver measures 13 cm in span. Gallbladder: The gallbladder is partially contracted. Gallbladder wall has a lamellated appearance and is thickened to at least 6 mm, more so at the fundus. Cholelithiasis. Biliary ducts: The extrahepatic bile duct where seen is nondilated measuring 5 mm. Pancreas: Pancreatic visualization is limited by overlying bowel contents, but no definite pancreatic abnormality identified. Right kidney: The right kidney measures 9.5 cm in length without hydronephrosis or increased echogenicity. Renal cortex was measured as 1.1 cm.. Aorta: The abdominal aorta where seen was nondilated measuring 1.6 cm diameter, the inferior vena cava was unremarkable where seen. Inferior vena cava: As above Portal venous: Blood flow within the main portal vein is directed towards the liver Intraperitoneal space: [id number] volume of ascites. US/US gall bladder [id number] IMPRESSION: 1. Findings consistent with hepatic cirrhosis complicated by [id number] volume of ascites. 2. Partially contracted gallbladder. Substantially Increased gallbladder wall thickening as compared with 02/17/2024 ultrasound, with cholelithiasis.The differential diagnosis of gallbladder wall thickening is broad, but includes cholecystitis (acute or chronic; calculous or acalculous), adenomyomatosis, neoplasm, and secondary to non-gallbladder disease (e.g., CHF, cirrhosis, acute hepatitis, acute pancreatitis, and hypoalbuminemia); in addition to other causes. If clinically indicated, consider nuclear hepatobiliary scan. 3. Please see above additional comments.
[2024-03-22 08:00] VITALS: BP 138/79; PULSE 93; RESP 18; TEMP 36.9; O2SAT 90
[2024-03-22] MEDS: memantine 5 mg tablet 7.5 MG PO (09:37)
[2024-03-22] MEDS: metroNIDAZOLE 500 MG Tablet PO ×3 (09:37→22:07)
[2024-03-22] MEDS: nitrofurantoin SR (BID) 100 mg Capsule PO ×2 (09:37→18:15)
[2024-03-22] MEDS: cholestyramine powder 4 gm Pkt PO ×2 (09:37→18:15)
[2024-03-22] MEDS: potassium chloride ER 20 mEq Tablet 40 MEQ PO (09:37)
[2024-03-22] MEDS: rifaximin 200 mg Tablet 600 MG PO ×2 (09:37→18:15)
[2024-03-22] MEDS: magnesium oxide 400 mg tablet PO ×2 (09:38→18:15)
[2024-03-22] MEDS: vancomycin 125 mg Capsule PO ×4 (09:38→22:07)
[2024-03-22] MEDS: donepezil 5 MG Tablet 10 MG PO (09:38)
--- NOTE | 2024-03-22 09:45 | P.PN_ITS ---
Subjective 2 Subjective: Patient suffered from fever, Patient has gallstones but on clinical exam no active pain No fever this morning Patient is asking for food I have asked her nurse to give her breakfast Added Macrobid for possible UTI she is endorsing burning with micturition Added metronidazole as well to p.o. vancomycin KUB unremarkable Vitals/I&O/Wt Last Vital Signs Temp 98.5 F 03/22/24 08:00 Pulse 93 03/22/24 08:00 Resp 18 03/22/24 08:00 BP 138/79 03/22/24 08:00 Pulse Ox 90 03/22/24 08:00 O2 Del Method Nasal Cannula 03/22/24 08:00 03/21/24 03/22/24 03/22/24 22:59 06:59 14:59 Intake Total 120 / 360 Balance 120 / 360 Weight last 48 hrs Weight 57.561 kg Weight 55.474 kg Physical Exam 2 Narrative: Pleasant cooperative Dehydrated Able to answer my questions Distended abdomen nontender I do not appreciate any May sign Mucous membranes are dry S1, S2 Currently on r 2 L nasal cannula Data 03/20/24 05:27 03/22/24 04:07 A&P Assessment and plan (1) Liver cirrhosis: (2) Depression: Qualifiers: Depression Type: persistent depressive disorder Qualified Code(s): F 34.1 - Dysthymic disorder (3) Failure to thrive: Qualifiers: Failure to thrive age range: in adult Qualified Code(s): R62.7 - Adult failure to thrive (4) GERD (gastroesophageal reflux disease): Qualifiers: Esophagitis presence: without esophagitis Qualified Code(s): K21.9 - Gastro-esophageal reflux disease without esophagitis (5) Generalized weakness: (6) C. difficile diarrhea: (7) Dementia: Qualifiers: Dementia behavioral or psychological symptom: with anxiety Dementia severity: severe Dementia type: associated with other underlying disease Qualified Code(s): F02.C4 - Dementia in other diseases classified elsewhere, severe, with anxiety (8) Hypomagnesemia: Plan C. difficile diarrhea Febrile when UTI Added Macrobid P.o. metronidazole and vancomycin to be continued Gallstones with liver cirrhosis related gallbladder disease Patient not endorsing active clinical signs of cholecystitis Monitor for now I will put her on fat-free diet Patient still experiencing multiple loose stools with urine incontinence she is at risk of dehydration With third spacing underlying liver cirrhosis, will request paracentesis on Saturday Attestations 2 Medical Necessity Statement*: Continue medical management Diagnoses Liver cirrhosis K74.60 Persistent depressive disorder F34.1 Depression Type: persistent depressive disorder Failure to thrive in adult R62.7 Failure to thrive age range: in adult Gastroesophageal reflux disease without esophagitis K21.9 Esophagitis presence: without esophagitis Generalized weakness R53.1 C. difficile diarrhea A04.72 Severe dementia associated with other underlying disease, with anxiety F02.C4 Dementia behavioral or psychological symptom: with anxiety Dementia severity: severe Dementia type: associated with other underlying disease Hypomagnesemia E83.42
[2024-03-22 11:41] VITALS: BP 135/81; PULSE 90; RESP 18; TEMP 36.9; O2SAT 93
--- NOTE | 2024-03-22 12:31 | PC.NURSE ---
PETER Coronado is attempting IV placement for albumin administration via ultrasound.
[2024-03-22] MEDS: albumin 12.5 GM/250 ML VIAL IV (13:05)
[2024-03-22 15:50] VITALS: BP 138/77; PULSE 94; RESP 17; TEMP 36.9; O2SAT 95
[2024-03-22] MEDS: pantoprazole 40 mg SDV IVP (18:15)
[2024-03-22 22:13] VITALS: BP 137/70; PULSE 96; RESP 18; TEMP 37.1; O2SAT 94
[2024-03-23] VITALS (8 sets, daily range): BP systolic 118–146; BP diastolic 63–77; PULSE 81–89; RESP 16–18; TEMP 36.3–37.1; O2SAT 90–98
[2024-03-23 05:47] LABS: Alanine Aminotransferase 7 U/L (0-33); Albumin Level 2.9 g/dL (3.5-5.2); Alkaline Phosphatase 70 U/L (35-105); Anion Gap 9.8 (5-19); Aspartate Amino Transferase 21 U/L (0-32); Blood Urea Nitrogen 9 mg/dL (8-23); Calcium 8.3 mg/dL (8.5-10.5); Carbon Dioxide 23 mmol/L (22-29); Chloride 106 mmol/L (98-107); Creatinine Clr Calc Pharmacy 57.4297; Globulin 2.5 g/dL (1.3-4.6); Glucose 107 mg/dL (65-115); Osmolality Calculated 279 mOsm/kg (285-295); Potassium 3.8 mmol/L (3.5-5.1); Sodium 135 mmol/L (136-145); Total Protein 5.4 g/dL (6.6-8.7)
--- NOTE | 2024-03-23 06:00 | US_ITS ---
WS: [id number] ULTRASOUND-GUIDED THERAPEUTIC AND DIAGNOSTIC PARACENTESIS Procedure, risks, and complications have been explained to the patient. Consent is obtained. Utilizing aseptic technique and 1% buffered lidocaine, a small dermatome was made through which a 5 F rench Yueh catheter was inserted. Approximately 3050 ml of clear peritoneal fluid was obtained witho ut difficulty. No complications encountered. Specimen collected for analysis as requested. US/US paracentesis abd w [id number] IMPRESSION: Uncomplicated paracentesis yielding 3050 ml of peritoneal fluid.
[2024-03-23] MEDS: heparin 5,000 unit/mL INJ 1 mL 5000 UNIT SUBCUT ×2 (06:33→16:29)
--- NOTE | 2024-03-23 08:18 | CT_ITS ---
WS: [id number] Exam: CT angio chest PE protcl [id number] Date/Time of Exam: 03/23/2024 8:57 AM Reason For Exam: dimer abnormal DLP: 152.[address] scans at [facility] use at least one of these dose optimization techniques: automated e xposure control; mA and/or kV adjustment per patient size (includes targeted exams where dose is matc hed to clinical indication); or iterative reconstruction. No sign of acute PE. There is ectasia of the thoracic aorta that measure slightly less than 3 cm in g reatest diameter. No significant aneurysm or dissection identified. The main pulmonary arteries are u nremarkable. Small bibasal pleural effusions are noted. There is atelectasis of the posterior basal s egment of the LEFT lower lobe. The airway is patent. No significant lymphadenopathy in the chest. The SVC is patent. Extensive coronary artery calcifications. No pericardial effusion. CT sections of the upper abdomen show extensive abdominal ascites and end-stage changes of hepatic cirrhosis. Mild sple nomegaly. Small hiatal hernia. No destructive bone lesion. The chest wall is intact. No axillary lymp hadenopathy. CT/CT angio chest PE protcl [id number] IMPRESSION: 1. No sign of acute PE. 2. Atelectasis and/or consolidation in the LEFT lower lobe. Pneumonia not exclu ded. Bibasal pleural effusions noted. 3. No mass or lymphadenopathy in the chest. 4. CT findings in the upper abdomen suggesting end stage hepatic cirrhosis and extensive abdominal ascites. Mild splenomegaly. Small hiatal hernia.
[2024-03-23] MEDS: iohexol 350 mg/mL 500 mL Btl (per mL) IV (09:07)
--- NOTE | 2024-03-23 09:47 | PC.SOCIAL ---
IMM Updated Updated pt on IMM. No questions voiced. Provided pt a copy. Initialed, dated, & timed a copy & placed in chart.
[2024-03-23] MEDS: memantine 5 mg tablet 7.5 MG PO (10:06)
[2024-03-23] MEDS: sennosides-docusate Tablet 1 TAB PO (10:06)
[2024-03-23] MEDS: metroNIDAZOLE 500 MG Tablet PO ×3 (10:07→20:13)
[2024-03-23] MEDS: potassium chloride ER 20 mEq Tablet 40 MEQ PO (10:07)
[2024-03-23] MEDS: vancomycin 125 mg Capsule PO ×4 (10:07→20:13)
[2024-03-23] MEDS: pantoprazole 40 mg SDV IVP ×2 (10:08→17:31)
[2024-03-23] MEDS: nitrofurantoin SR (BID) 100 mg Capsule PO ×2 (10:08→17:32)
[2024-03-23] MEDS: magnesium oxide 400 mg tablet PO ×2 (10:08→17:32)
[2024-03-23] MEDS: donepezil 5 MG Tablet 10 MG PO (10:08)
[2024-03-23] MEDS: rifaximin 200 mg Tablet 600 MG PO ×2 (10:09→17:31)
[2024-03-23] MEDS: cholestyramine powder 4 gm Pkt PO (10:09)
[2024-03-23] MEDS: oxyCODONE 5 mg IR Tab/Cap PO ×2 (10:10→17:31)
--- NOTE | 2024-03-23 10:50 | PC.CHAP ---
Pastoral Care Encounter/Spiritual Assessment Type of Contact [] Declined staff nurse anesthetist visit [] Patient/Family/Request visit [] Outpatient visit [] Follow-up visit [] Physician referral [] Code/Alert [x] Routine visit [] Staff referral [] Actively dying [] Patient sleeping [] Family support [] [] Out of room [] Palliative care [] [] Receiving care in room [] Pre-surgical visit [] Trauma [] Long length of stay [] ICU visit [] Other: Relational/Emotional Strength [] Patient feels connected with others/family/visitors/staff [] Distress [] Loneliness/isolation [] Abandonment Spirituality of Patient [] Person of Jina [] Attends Nondenominational of their Jina [] Believes in Prayer [] Reads Bible or Mandaen materials [] There are Spiritual issues to be addressed Plumber Cub Interventions [] Prayer [] Active listening [] Non-anxious presence [] Spiritual/emotional support [] Crisis/trauma care [] Spiritual counseling [] Bereavement support [] Provided bereavement packet [] Provided Bible/devotional materials [] Provided toy/stuffed animal, coloring book to patient or family member [] Provided Communion [] Anointing/Brethren [] Salvation [] Completed spiritual assessment [] Other: Impact on Illness or Injury [] Angry [] Fearful [] Anxious [] Often cries [] Exhaustion [] Unable to work [] Unable to attend holiness [] Unable to walk/stand [] Unable to read [] Unable to drive [] Unable to eat/drink [] Unable to sleep [] Unable to be with family [] Patient intubated [] Other: Summary precaution Time spent with patient
[2024-03-23 11:16] LABS: Body Fluid WBC 56 /uL; Monocytes # Body Fluid 0.046; RBC, Body Fluid 0 10^3/uL
[2024-03-23 11:28] LABS: Apprearance, Body Fluid CLEAR; Color, Body Fluid COLORLESS; Cyto Order Verification No Order; pH Body Fluid 7.5
--- NOTE | 2024-03-23 11:40 | P.PN_ITS ---
Subjective 2 Subjective: Patient is still having diarrhea I did discuss liver cirrhosis, recurrent paracentesis, CTA chest did not show any PE, no signs of SBP Patient hurting all over Patient and the son do not want to go to [place] [facility] [place], stating that in case of further worsening they might opt for hospice/palliative care Patient is stating that she is worn out from the CTA chest and paracentesis today, she did receive albumin yesterday Vitals/I&O/Wt Last Vital Signs Temp 97.5 F L 03/23/24 08:00 Pulse 82 03/23/24 08:00 Resp 16 03/23/24 10:10 BP 145/75 03/23/24 08:00 Pulse Ox 98 03/23/24 08:00 O2 Del Method Nasal Cannula 03/23/24 08:00 O2 Flow Rate 2 03/22/24 22:13 03/22/24 03/23/24 03/23/24 22:59 06:59 14:59 Intake Total 370 / 610 240 / 850 Balance 370 / 610 240 / 850 Weight last 48 hrs Weight 67.631 kg Weight 57.561 kg Physical Exam 2 Narrative: Patient lethargic and fatigued But able to answer my questions Currently on 2 L nasal cannula Hemodynamically stable Complaining of hurting all over S1, S2 No significant signs of confusion Nonfocal neuroexam Data 03/20/24 05:27 03/23/24 05:17 A&P Assessment and plan (1) Failure to thrive: Qualifiers: Failure to thrive age range: in adult Qualified Code(s): R62.7 - Adult failure to thrive (2) Liver cirrhosis: (3) Electrolyte abnormality: (4) C. difficile diarrhea: (5) Dementia: Qualifiers: Dementia behavioral or psychological symptom: with anxiety Dementia severity: severe Dementia type: associated with other underlying disease Qualified Code(s): F02.C4 - Dementia in other diseases classified elsewhere, severe, with anxiety (6) Generalized weakness: (7) Elevated lactic acid level: Plan Fever subsided Urine culture could not be obtained because she has been incontinent She has been put on antibiotics Macrobid for possible UTI She is also getting metronidazole and p.o. vancomycin for her C. difficile diarrhea I did discuss poor health indicators such as poor appetite, generalized weakness and fatigue and failure to thrive send stating that he is not interesting in [place] [facility] [place] placement but would opt for hospice care in case of further worsening Patient will be discharged by tomorrow Attestations 2 Medical Necessity Statement*: Continue medical management Diagnoses Failure to thrive in adult R62.7 Failure to thrive age range: in adult Liver cirrhosis K74.60 Electrolyte abnormality E87.8 C. difficile diarrhea A04.72 Severe dementia associated with other underlying disease, with anxiety F02.C4 Dementia behavioral or psychological symptom: with anxiety Dementia severity: severe Dementia type: associated with other underlying disease Generalized weakness R53.1 Elevated lactic acid level R79.89
[2024-03-23 11:47] LABS: Albumin Body Fluid 0.4 g/dL; Total Protein Body Fluid 0.5 g/dL
[2024-03-23] MEDS: ALPRAZolam 0.5 mg Tablet PO (16:29)
[2024-03-24] VITALS: BP 124/66; PULSE 78; RESP 20; TEMP 36.4; O2SAT 92
[2024-03-24] MEDS: heparin 5,000 unit/mL INJ 1 mL 5000 UNIT SUBCUT (03:37)
[2024-03-24 04:00] VITALS: BP 124/66; BP 126/79; PULSE 78; RESP 16; RESP 20; TEMP 36.4; TEMP 36.5; O2SAT 94
[2024-03-24 06:07] LABS: Anion Gap 9.9 (5-19); Blood Urea Nitrogen 9 mg/dL (8-23); Calcium 8.3 mg/dL (8.5-10.5); Carbon Dioxide 25 mmol/L (22-29); Chloride 110 mmol/L (98-107); Creatinine Clr Calc Pharmacy 52.1909; Glucose 101 mg/dL (65-115); Osmolality Calculated 291 mOsm/kg (285-295); Potassium 3.9 mmol/L (3.5-5.1); Sodium 141 mmol/L (136-145)
[2024-03-24 08:00] VITALS: BP 123/74; PULSE 77; RESP 18; TEMP 36.5; O2SAT 94
[2024-03-24] MEDS: donepezil 5 MG Tablet 10 MG PO (09:10)
[2024-03-24] MEDS: cholestyramine powder 4 gm Pkt PO (09:11)
[2024-03-24] MEDS: nitrofurantoin SR (BID) 100 mg Capsule PO (09:11)
[2024-03-24] MEDS: memantine 5 mg tablet 7.5 MG PO (09:11)
[2024-03-24] MEDS: potassium chloride ER 20 mEq Tablet 40 MEQ PO (09:12)
[2024-03-24] MEDS: magnesium oxide 400 mg tablet PO (09:13)
[2024-03-24] MEDS: rifaximin 200 mg Tablet 600 MG PO (09:13)
[2024-03-24] MEDS: sennosides-docusate Tablet 1 TAB PO (09:13)
[2024-03-24] MEDS: vancomycin 125 mg Capsule PO ×2 (09:14→13:59)
[2024-03-24] MEDS: metroNIDAZOLE 500 MG Tablet PO (09:14)
[2024-03-24] MEDS: pantoprazole 40 mg SDV IVP (09:15)
--- NOTE | 2024-03-24 09:53 | PM.DCS ---
Discharge Providers Date of Admission: 03/22/24 09:45 Date of Discharge: March 24, 2024 Attending Provider at Admission: Vangie Gabriel MD Attending Provider at Discharge: Supriya Webster MD Primary Care Provider: Tim Medina MD Diagnoses at Discharge Discharge Diagnosis (1) Failure to thrive: Status: Acute Qualifiers: Failure to thrive age range: in adult Qualified Code(s): R62.7 - Adult failure to thrive (2) Liver cirrhosis: Status: Acute (3) Electrolyte abnormality: Status: Acute (4) C. difficile diarrhea: Status: Acute (5) Dementia: Status: Acute Qualifiers: Dementia behavioral or psychological symptom: with anxiety Dementia severity: severe Dementia type: associated with other underlying disease Qualified Code(s): F02.C4 - Dementia in other diseases classified elsewhere, severe, with anxiety (6) Generalized weakness: Status: Acute (7) Elevated lactic acid level: Status: Acute Reason for Visit Reason for Visit: RUQ abd pain, weakness, cdiff pos Hospital Course Hospital Course 73-year-old female with history of dementia, failure to thrive, hypertension, C. difficile x 2 currently on tapering regimen of p.o. vancomycin, present to the hospital for confusion. Son was concerned that probably his mother was having a stroke. She was alert and oriented but lethargic and fatigued on evaluation, there was no sign of stroke. Her D-dimer was high venous Doppler and CT chest did not show any sign of thromboembolic disease, she was found to have liver cirrhosis and ascites, paracentesis was done there was no sign of SBP, she was kept on Macrobid for UTI and p.o. vancomycin for C. difficile. She was having 7-8 episodes of diarrhea which has reduced down to 3-4 episodes. I have added cholestyramine as well. I have discussed in detail with the patient and her son that in case of further worsening such as not being able to eat, not been able to walk or communicate then they should consider hospice care in future. For now I will give spironolactone, Lasix along oxycodone. I will also give them a referral for paracentesis if needed down the road. During this visit 3 L peritoneal fluid was removed, Physical Exam Narrative: Patient is bringing up green sputum Currently on room air No fever today Hemodynamic stable No active abdominal tenderness Complaining of hurting all over Discharge Data Studies Completed and Pending Completed Studies During Hospitalization Category Date Time Status CT abdomen pelvis w con* [id number] Stat Cat Scan 03/19/24 12:[address] head thrombolytic [id number] Stat Cat Scan 03/19/24 11:06 Completed CTA PE [CT angio chest PE protcl [id number]] Stat Cat Scan 03/23/24 08:18 Completed CTA head neck [CT angio headneck* [id number]] Stat Cat Scan 03/19/24 12:39 Completed XR KUB portable [id number] Routine Exams 03/21/24 17:11 Completed XR chest 1V portable [id number] Stat Exams 03/19/24 11:05 [place] [id number] Routine Ultrasound 03/19/24 16:44 Completed US gall bladder [id number] Routine Ultrasound 03/22/24 07:15 Com[place]acent[place] abd w [id number] Routine Ultrasound 03/23/24 06:00 Completed Pending at discharge Category Date Time Status Body Fluid Culture & GS Routine Lab 03/22/24 09:53 Results Radiology Impressions Chest X-Ray 03/19/24 11:05 Impression: Atherosclerosis. Head CT 03/19/24 11:06 IMPRESSION: 1. No acute intracranial hemorrhage or edema. 2. Moderate atrophy and small vessel disease is similar to the prior study. 3. New small RIGHT maxillary sinus air-fluid level. Head/Neck CTA 03/19/24 12:39 IMPRESSION: 1. No high-grade cervical carotid artery stenosis. Small amount of plaque at the bifurcations. Stenosis less than 50%. 2. Mild to moderate atherosclerotic plaque through the cavernous carotid arteries. Stenosis near 50%. 3. No cerebral artery aneurysms or thrombus. 4. Hypoplastic LEFT A1 segment. Abdomen/Pelvis CT 03/19/24 12:48 IMPRESSION: 1. Continued moderate ascites. 2. Portal venous hypertension with extensive venous collaterals in the upper abdomen. 3. Cirrhotic liver. 4. Cholelithiasis. Mild gallbladder wall enhancement is probably related to the ascites and liver disease. 5. Continued mild diffuse small bowel and colon submucosal edema but improved since 03/10/2024. This edema may be residual of C. difficile but can also be visualized with cirrhosis and the ascites. Venous Duplex 03/19/24 16:44 IMPRESSION: No sonographic evidence of deep venous thrombosis. KUB X-Ray 03/21/24 17:11 IMPRESSION: No plain film evidence of acute intra-abdominal or pelvic process. Gallbladder Ultrasound 03/22/24 07:15 IMPRESSION: 1. Findings consistent with hepatic cirrhosis complicated by [id number] volume of ascites. 2. Partially contracted gallbladder. Substantially Increased gallbladder wall thickening as compared with 02/17/2024 ultrasound, with cholelithiasis.The differential diagnosis of gallbladder wall thickening is broad, but includes cholecystitis (acute or chronic; calculous or acalculous), adenomyomatosis, neoplasm, and secondary to non-gallbladder disease (e.g., CHF, cirrhosis, acute hepatitis, acute pancreatitis, and hypoalbuminemia); in addition to other causes. If clinically indicated, consider nuclear hepatobiliary scan. 3. Please see above additional comments. Paracentesis Ultrasound 03/23/24 06:00 IMPRESSION: Uncomplicated paracentesis yielding 3050 ml of peritoneal fluid. Chest CTA 03/23/24 08:18 IMPRESSION: 1. No sign of acute PE. 2. Atelectasis and/or consolidation in the LEFT lower lobe. Pneumonia not excluded. Bibasal pleural effusions noted. 3. No mass or lymphadenopathy in the chest. 4. CT findings in the upper abdomen suggesting end stage hepatic cirrhosis and extensive abdominal ascites. Mild splenomegaly. Small hiatal hernia. Laboratory Results WBC 6.65 10^3/uL (3.29-11.43) 03/20/24 05:27 RBC 3.70 10^6/uL (3.85-5.65) L 03/20/24 05:27 Hgb 11.30 g/dL (11.27-16.99) 03/20/24 05:27 Hct 33.3 % (36-47) L 03/20/24 05:27 MCV 90.0 fl (85-98) 03/20/24 05:27 MCH 30.5 pg (27-33) 03/20/24 05:27 MCHC 33.9 g/dL (30-55) 03/20/24 05:27 RDW 18.1 % (12.1-15.1) H 03/20/24 05:27 Plt Count 130 10^3/cmm (157-399) L 03/20/24 05:27 MPV 11.3 fL (7.4-10.4) H 03/20/24 05:27 Neut % (Auto) 69.7 % 03/20/24 05:27 Lymph % (Auto) 15.6 % 03/20/24 05:27 [place] % (Auto) 9.6 % 03/20/24 05:27 Eos % (Auto) 3.2 % 03/20/24 05:27 Baso % (Auto) 1.1 % 03/20/24 05:27 Neut # (Auto) 4.64 10^3/uL (1.8-7.7) 03/20/24 05:27 Lymph # (Auto) 1.0 10^3/uL (0.8-4.8) 03/20/24 05:27 [place] # (Auto) 0.6 10^3/uL (0.2-0.9) 03/20/24 05:27 Eos # (Auto) 0.2 10^3/uL (0.0-0.8) 03/20/24 05:27 Baso # (Auto) 0.1 10^3/uL (0.0-0.1) 03/20/24 05:27 Nucleated RBC % (auto) 0 % 03/20/24 05:27 Nucleated RBCs # 0.0 /100WBC 03/20/24 05:27 PT 17.20 SECONDS (12.1-14.9) H 03/19/24 10:33 INR 1.36 (0.8-1.2) H 03/19/24 10:33 APTT 31.0 SECONDS (23.9-36.7) 03/19/24 10:33 D-Dimer 3.61 ug/mLFEU (0-0.59) H 03/19/24 10:33 Sodium 141 mmol/L (136-145) 03/24/24 05:32 Potassium 3.9 mmol/L (3.5-5.1) 03/24/24 05:32 Chloride 110 mmol/L (98-107) H 03/24/24 05:32 Carbon Dioxide 25 mmol/L (22-29) 03/24/24 05:32 Anion Gap 9.9 (5-19) 03/24/24 05:32 BUN 9 mg/dL (8-23) 03/24/24 05:32 Creatinine 0.6 mg/dL (0.5-0.9) 03/24/24 05:32 GFR Calculation Not Reportable 03/24/24 05:32 Glucose 101 mg/dL (65-115) 03/24/24 05:32 POC Glucose 155 mg/dL (70-110) H 03/19/24 11:15 Estimat Average Glucose 71 03/19/24 10:33 Hemoglobin A1c 4.1 % (4.0-6.0) 03/19/24 10:33 Calculated Osmolality 291 mOsm/kg (285-295) 03/24/24 05:32 Lactic Acid 2.7 mmol/L (0.5-2.2) H 03/19/24 10:33 Lactic Acid (Sepsis) 2.3 mmol/L (0.5-2.2) H 03/19/24 14:05 Calcium 8.3 mg/dL (8.5-10.5) L 03/24/24 05:32 Phosphorus 3.5 mg/dL (2.5-4.5) 03/20/24 05:27 Magnesium 1.3 mg/dL (1.7-2.3) L 03/20/24 05:27 Total Bilirubin 1.0 mg/dL (0.15-1.2) 03/23/24 05:17 AST 21 U/L (0-32) 03/23/24 05:17 ALT 7 U/L (0-33) 03/23/24 05:17 Alkaline Phosphatase 70 U/L (35-105) 03/23/24 05:17 Ammonia 45 umol/L (11-51) 03/19/24 19:42 C-Reactive Protein 3.0 mg/L (0.0-4.9) 03/20/24 05:27 Total Protein 5.4 g/dL (6.6-8.7) L 03/23/24 05:17 Albumin 2.9 g/dL (3.5-5.2) L 03/23/24 05:17 Globulin 2.5 g/dL (1.3-4.6) 03/23/24 05:17 Lipase 35 U/L (13-60) 03/19/24 10:33 Tumor Marker AFP 13.3 ng/mL (0-8.3) H 03/19/24 18:25 TSH 5.05 uIU/mL (0.27-4.20) H 03/19/24 10:33 Free T4 1.06 ng/dL (0.82-1.77) 03/20/24 05:27 Urine Color Yellow (Yellow) 03/19/24 12:21 Urine Appearance Slightly cloudy (CLEAR) 03/19/24 12:21 Urine pH TNP 03/19/24 12:21 Ur Specific [place] TNP 03/19/24 12:21 Urine Protein TNP 03/19/24 12:21 Urine Glucose (UA) TNP 03/19/24 12:21 Urine Ketones TNP 03/19/24 12:21 Urine Blood TNP 03/19/24 12:21 Urine Nitrate TNP 03/19/24 12:21 Urine Bilirubin TNP 03/19/24 12:21 Urine Urobilinogen TNP 03/19/24 12:21 Ur Leukocyte Esterase TNP 03/19/24 12:21 Urine RBC Rare /hpf (0-2) 03/19/24 12:21 Urine WBC Rare /hpf (0-5) 03/19/24 12:21 Ur Squamous Epith Cells None /hpf (0-5) 03/19/24 12:21 Calcium Oxalate Crystal 5-10 /hpf H 03/19/24 12:21 Amorphous Sediment Not Reportable 03/19/24 12:21 Urine Bacteria Trace /hpf (NONE) 03/19/24 12:21 Fluid Color Colorless 03/23/24 10:30 Fluid Appearance Clear 03/23/24 10:30 Fluid pH 7.5 03/23/24 10:30 Fluid WBC 56 /uL 03/23/24 10:30 Fluid RBC 0 10^3/uL 03/23/24 10:30 Fld Polynuclear WBCs # 0.010 03/23/24 10:30 Fld Polynuclear WBCs % 17.900 % 03/23/24 10:30 Fl Mononucl WBCs #(Auto) 0.046 03/23/24 10:30 Fl Mononuclear % Auto 82.100 % 03/23/24 10:30 Fld Crystal Laterality Not Reportable 03/23/24 10:30 Fluid Total Protein 0.5 g/dL 03/23/24 10:30 Fluid Albumin 0.4 g/dL 03/23/24 10:30 Urine Opiates Screen Negative ng/mL (Negative) 03/19/24 12:21 Ur Barbiturates Screen Negative ng/mL (Negative) 03/19/24 12:21 Ur Phencyclidine Scrn Negative ng/mL (Negative) 03/19/24 12:21 Ur Amphetamines Screen Negative ng/mL (Negative) 03/19/24 12:21 U Benzodiazepines Scrn Positive ng/mL (Negative) H 03/19/24 12:21 Urine Cocaine Screen Negative ng/mL (Negative) 03/19/24 12:21 U Marijuana (THC) Screen Positive ng/mL (Negative) H 03/19/24 12:21 Vitals Last Vital Signs Temp 97.7 F 03/24/24 08:00 Pulse 77 03/24/24 08:00 Resp 18 03/24/24 08:00 BP 123/74 03/24/24 08:00 Pulse Ox 94 03/24/24 08:00 O2 Del Method Room Air 03/24/24 08:00 O2 Flow Rate 2 03/22/24 22:13 Discharge Plan Discharge Patient Disposition: Home Condition: Stable Prescriptions: New oxycodone 5 mg Tablet 5 mg PO Q8H PRN (Reason: Moderate Pain) Qty: 20 0RF cholestyramine (with sugar) 4 gram Powder In Packet 1 ea PO BID Qty: 20 0RF metronidazole 500 mg Tablet 500 mg PO TID Qty: 30 0RF nitrofurantoin monohyd/m-cryst 100 mg Capsule 100 mg PO BID Qty: 10 0RF spironolactone 25 mg tablet 25 mg PO DAILY Qty: 60 0RF magnesium oxide 400 mg (241.3 mg magnesium) Tablet 400 mg PO BID Qty: 10 0RF Continued furosemide [Lasix] 20 mg tablet 20 mg PO QAM Qty: 2 0RF Xanax 0.5 mg tablet 0.5 mg PO DAILY PRN (Reason: anxiety) 30 Days Qty: 30 0RF Rx Instructions: pharmacy records under external med history, show that this is to be taken once daily, however son states that patient takes it twice daily memantine-donepezil 7-10 mg capsule,sprinkle,ER 24hr 1 cap PO DAILY Qty: 60 4RF vancomycin 125 mg Capsule See Rx Instructions .ROUTE .COMPLEX 42 Days Qty: 84 0RF Rx Instructions: 1 tab 4 times daily for 2 weeks, 1 tab twice daily for 7 days, 1 tablet once daily for 7 days, 1 tab every 2 days for 2 weeks Discontinued amlodipine 10 mg Tablet 10 mg PO DAILY 30 Days Qty: 30 0RF Discharge Orders: Discharge Order (Routine); Ordered 03/24/24 Ordered By: Supriya Webster Referrals: Tim Medina MD [Primary Care Provider] - (We have notified your physician's clinic of the need for a follow-up appointment to be scheduled. If you have not heard from them within the next 2 business days, please call them directly. ) Patient Instructions: Opioid Safety Discharge Attestations Time Spent in Discharge Care*: greater than 30 min Quality Metrics Clinical Quality Measures [ No reported AMI, CVA or VTE this stay] Coding Level of Care Code Acute Code for Chg Fwd Diagnoses Failure to thrive in adult R62.7 Failure to thrive age range: in adult Liver cirrhosis K74.60 Electrolyte abnormality E87.8 C. difficile diarrhea A04.72 Severe dementia associated with other underlying disease, with anxiety F02.C4 Dementia behavioral or psychological symptom: with anxiety Dementia severity: severe Dementia type: associated with other underlying disease Generalized weakness R53.1 Elevated lactic acid level R79.89
[2024-03-24 11:50] VITALS: RESP 16
[2024-03-24] MEDS: oxyCODONE 5 mg IR Tab/Cap PO (11:50)
[2024-03-24 12:00] VITALS: BP 137/78; PULSE 88; RESP 18; TEMP 36.7; O2SAT 93
--- NOTE | 2024-03-24 12:00 | PC.NURSE ---
This travel writer called to make follow up appointments with Dr. Medina. He is out of office until June. The first available appointment was with Kerri REED.
[2024-03-24 14:42] VITALS: BP 137/78; PULSE 88; RESP 18; TEMP 36.7; O2SAT 93
== END 2024-03-24 14:05 | disposition home health service (06) | DRG 372 ==
LOC: ER 15:01 → MEDSURG 17:02
PROVIDERS: Admitting Provider Internal Medicine; Emergency Provider Emergency Medicine; PCP Family Medicine Adult Medicine; Visit Provider Internal Medicine
DX: A04.72 Enterocolitis due to Clostridium difficile, not specified as recurrent (principal); E87.20 Acidosis, unspecified; F03.C4 Unspecified dementia, severe, with anxiety; N39.0 Urinary tract infection, site not specified; F34.1 Dysthymic disorder; K74.60 Unspecified cirrhosis of liver; I10 Essential (primary) hypertension; K21.9 Gastro-esophageal reflux disease without esophagitis; E80.6 Other disorders of bilirubin metabolism; F17.210 Nicotine dependence, cigarettes, uncomplicated; R62.7 Adult failure to thrive; E83.42 Hypomagnesemia; K76.82 Hepatic encephalopathy; E86.0 Dehydration; Z68.20 Body mass index [BMI] 20.0-20.9, adult; Z95.5 Presence of coronary angioplasty implant and graft
CPT/HCPCS: 36415; 36416; 49083; 70450; 70496; 70498; 71045; 71275; 74018; 74177; 76705; 80048; 80053; 80306; 80503; 81001; 82042; 82105; 82140; 82962; 83036; 83605; 83690; 83735; 83986; 84100; 84157; 84439; 84443; 85025; 85378; 85610; 85730; 86140; 87070; 87075; 87205; 89050; 93005; 93970; 96360; 96372; 97161; 99285; G0378; J0696; J1644; J1940; J2470; J7030; P9045